=== PATIENT | female | born 1960 | race Two or more races ===

== ENCOUNTER → 2020-09-21 15:21 | Outpatient (BNVA) | payer OTHER, SELFPAY | PROVIDERS: PCP Internal Medicine; Referring Provider Internal Medicine; Visit Provider Obstetrics & Gynecology | DX: N81.10 Cystocele, unspecified (principal); N32.81 Overactive bladder; N39.3 Stress incontinence (female) (male) | CPT/HCPCS: 99212 ==

== ENCOUNTER 2020-12-06 10:18 | Outpatient (REF) | payer OTHER, SELFPAY ==
[2020-12-06 12:14] LABS: Folate 9.7 ng/mL (> or = 4.0); Vitamin B12 254 pg/mL (200-900)
[2020-12-10 13:42] LABS: Vitamin D 25-OH, D2 <4 ng/mL; Vitamin D 25-OH, D3 16 ng/mL; Vitamin D 25-OH, Total 16 ng/mL (30-100)
== END 2020-12-06 10:19 | disposition home or self-care (01) ==
LOC: HO.LAB 10:18
PROVIDERS: PCP Internal Medicine; Visit Provider Internal Medicine
DX: I10 Essential (primary) hypertension (principal)
CPT/HCPCS: 36415; 82306; 82607; 82746

== ENCOUNTER 2021-01-08 10:19 | Outpatient (REF) | payer OTHER, SELFPAY ==
--- NOTE | ~2021-01-08 | MM_ITS ---
EXAMINATION: MM SCREENING DIGITAL BREAST TOMOSYNTHESIS, BILATERAL CLINICAL INFORMATION: Screening. Asymptomatic. The lifetime risk of breast cancer based on the Tyrer-Cuzick Model is 5%. COMPARISON: Mammography: 01/06/2020, 11/02/2018, 10/20/2017 TECHNIQUE: Digital breast tomosynthesis is performed in both the craniocaudal and mediolateral oblique views along with computer-aided detection (CAD). Synthesized 2D images are generated from the tomosynthesis. Additional right CC view is provided. FINDINGS: The breasts are heterogeneously dense, which may obscure small masses (ACR BI-RADS breast composition Category c). Breast tissue composition borders on average fibroglandular. No significant changes from prior exams. There are no significant masses, abnormal calcifications, or other abnormalities. MM/MM tomosynthesis screening BI IMPRESSION: No mammographic evidence of malignancy. ASSESSMENT: BI-RADS 1: Negative RECOMMENDATION: Routine annual mammography screening. This patient's information was entered into a reminder system with a target due date for their next mammogram.
== END 2021-01-08 10:20 | disposition home or self-care (01) ==
LOC: HO.MAMMO 10:19
PROVIDERS: PCP Internal Medicine; Visit Provider Internal Medicine
DX: Z12.31 Encounter for screening mammogram for malignant neoplasm of breast (principal)
CPT/HCPCS: 77063; 77067

== ENCOUNTER 2021-02-21 16:29 | Outpatient (REF) | payer OTHER, SELFPAY ==
--- NOTE | ~2021-02-21 | XR_ITS ---
EXAMINATION: XR HAND, RIGHT CLINICAL INFORMATION: Osteoarthritis COMPARISON: None TECHNIQUE: PA, lateral, and oblique views of the right hand. FINDINGS: Bone alignment is normal. No fracture or dislocation is seen. There is mild arthritis at the first MCP joint with small osteophytes. Joint spaces are otherwise normal. Soft tissues are normal. XR/XR hand RT 2V IMPRESSION: Mild degenerative changes of the first MCP joint otherwise unremarkable exam.
== END 2021-02-21 16:30 | disposition home or self-care (01) ==
LOC: HO.XRAY 16:29
PROVIDERS: PCP Internal Medicine; Visit Provider Internal Medicine
DX: M19.041 Primary osteoarthritis, right hand (principal)
CPT/HCPCS: 73120

== ENCOUNTER 2021-07-13 14:41 | Emergency (ER) | payer OTHER, SELFPAY ==
--- NOTE | ~2021-07-13 | XR_ITS ---
Indication: Injury EXAMINATION: Right shoulder, right ribs. Comparison previous dated 12/24/2018. 3 views of the right shoulder demonstrate some sclerotic change at the insertion of the superior rotator cuff. There is attenuation of the distal clavicle. This may be postsurgical. Ostial lysis cannot be excluded. There is no acute fracture or dislocation. Single view of the chest shows no pneumothorax or effusion. 3 detailed images of the right ribs do not demonstrate evidence for fracture. XR/XR shoulder RT min 2V IMPRESSION: No fracture of the right ribs is seen. No underlying pneumothorax or effusion. Some degeneration of the right shoulder and attenuation of the distal clavicle which may be postsurgical but correlation needs to be made clinically..
--- NOTE | ~2021-07-13 | XR_ITS ---
Indication: Injury EXAMINATION: Right shoulder, right ribs. Comparison previous dated 12/24/2018. 3 views of the right shoulder demonstrate some sclerotic change at the insertion of the superior rotator cuff. There is attenuation of the distal clavicle. This may be postsurgical. Ostial lysis cannot be excluded. There is no acute fracture or dislocation. Single view of the chest shows no pneumothorax or effusion. 3 detailed images of the right ribs do not demonstrate evidence for fracture. XR/XR ribs RT min 3V w CXR1V IMPRESSION: No fracture of the right ribs is seen. No underlying pneumothorax or effusion. Some degeneration of the right shoulder and attenuation of the distal clavicle which may be postsurgical but correlation needs to be made clinically..
[2021-07-13 14:51] VITALS: BP 180/90; PULSE 73; O2SAT 97
[2021-07-13 15:04] VITALS: BP 180/87; PULSE 93; RESP 16; TEMP 36.1; O2SAT 99; BMI 34.4
[2021-07-13] MEDS: Acetaminophen 325 MG TABLET 975 MG PO (15:55)
[2021-07-13 16:02] VITALS: BP 165/74; PULSE 78; RESP 20; TEMP 36.7; O2SAT 98
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
== END 2021-07-13 17:40 | disposition home or self-care (01) ==
PROVIDERS: Emergency Provider Emergency Medicine; PCP Internal Medicine
DX: S46.911A Strain of unspecified muscle, fascia and tendon at shoulder and upper arm level, right arm, initial encounter (principal); V43.52XA Car driver injured in collision with other type car in traffic accident, initial encounter; R07.81 Pleurodynia; Y93.89 Activity, other specified; Y92.414 Local residential or business street as the place of occurrence of the external cause; Y99.9 Unspecified external cause status
CPT/HCPCS: 71101; 73030; 99283

== ENCOUNTER 2021-07-14 14:45 | Outpatient (REF) | payer OTHER, SELFPAY ==
--- NOTE | ~2021-07-14 | XR_ITS ---
EXAMINATION: XR LEFT HAND AND WRIST CLINICAL INFORMATION: Left wrist pain. COMPARISON: None. TECHNIQUE: 3 views of the left hand and wrist and navicular view of the left wrist. FINDINGS: There is no evidence of acute fracture or dislocation of the left hand or wrist. Joint spaces are maintained. There is some spurring about the 1st interphalangeal joint as well as the base of the second distal phalanx, likely related to previous trauma. There is spurring about the 5th distal interphalangeal joint. No significant degenerative change of the wrist is appreciated. XR/XR hand wrist LT IMPRESSION: Mild degenerative changes of the left hand. No evidence of acute fracture or dislocation. No significant abnormality of the wrist identified.
== END 2021-07-14 14:46 | disposition home or self-care (01) ==
LOC: HO.XRAY 14:45
PROVIDERS: PCP Internal Medicine; Visit Provider Physician Assistant
DX: M25.532 Pain in left wrist (principal)
CPT/HCPCS: 73110; 73130

== ENCOUNTER 2021-09-21 08:32 | Outpatient (REF) | payer OTHER, SELFPAY ==
[2021-09-21 09:45] LABS: Hematocrit 37.4 % (37-47); Hemoglobin 11.5 g/dl (12.0-16.0); Mean Corpuscular HGB Conc 30.7 g/dl (31.0-35.0); Mean Corpuscular Hemoglobin 26.5 pg (27.0-33.0); Mean Corpuscular Volume 86.2 fL (80-98); Mean Platelet Volume 10.5 fL (9.4-12.3); Platelet Count 331 X10*3/uL (160-400); Red Blood Count 4.34 X10*6/uL (4.20-5.50); White Blood Count 6.3 X10*3/uL (4.8-10.8)
[2021-09-21 10:15] LABS: Alanine Aminotransferase 16 U/L (0-31); Alkaline Phosphatase 103 U/L (39-117); Anion Gap 13 (12-20); Aspartate Amino Transferase 18 U/L (5-31); Bilirubin Direct 0.2 mg/dL (0.0-0.5); Bilirubin Total 0.4 mg/dL (0.0-1.0); Blood Urea Nitrogen 15 mg/dL (9-16); Calcium 8.9 mg/dL (8.4-10.2); Carbon Dioxide 27 mmol/L (22-29); Chloride 105 mmol/L (96-108); Cholesterol 189 mg/dL; Estimated Glomerular Filt Rate > 60; Glucose Random 90 mg/dL (60-115); HDL Cholesterol 60 mg/dL; LDL Cholesterol Calculated 111 mg/dl; Potassium 4.3 mmol/L (3.3-5.1); Sodium 141 mmol/L (135-145); Total Protein 6.7 g/dL (6.5-8.0); Triglycerides 91 mg/dL
== END 2021-09-21 08:33 | disposition home or self-care (01) ==
LOC: HO.LAB 08:32
PROVIDERS: PCP Internal Medicine; Visit Provider Internal Medicine
DX: I10 Essential (primary) hypertension (principal)
CPT/HCPCS: 36415; 80048; 80061; 80076; 84443; 85027

== ENCOUNTER 2022-01-14 10:40 | Outpatient (REF) | payer OTHER, SELFPAY ==
--- NOTE | ~2022-01-14 | MM_ITS ---
EXAMINATION: MM SCREENING DIGITAL BREAST TOMOSYNTHESIS, BILATERAL CLINICAL INFORMATION: Screening. Asymptomatic. The lifetime risk of breast cancer based on the Tyrer-Cuzick Model is 5%. COMPARISON: Mammography: 01/08/2021, 01/06/2020, 11/02/2018 TECHNIQUE: Digital breast tomosynthesis is performed in both the craniocaudal and mediolateral oblique views along with computer-aided detection (CAD). Synthesized 2D images are generated from the tomosynthesis. FINDINGS: The breasts are heterogeneously dense, which may obscure small masses (ACR BI-RADS breast composition Category c). There are no significant masses, abnormal calcifications, or other abnormalities. Parenchymal pattern is similar to prior studies. Breast tissue composition borders on average fibroglandular. There are no significant changes. MM/MM tomosynthesis screening BI IMPRESSION: No mammographic evidence of malignancy. ASSESSMENT: BI-RADS 1: Negative RECOMMENDATION: Routine annual mammography screening. This patient's information was entered into a reminder system with a target due date for their next mammogram.
== END 2022-01-14 10:41 | disposition home or self-care (01) ==
LOC: HO.MAMMO 10:40
PROVIDERS: PCP Internal Medicine; Visit Provider Internal Medicine
DX: Z12.31 Encounter for screening mammogram for malignant neoplasm of breast (principal)
CPT/HCPCS: 77063; 77067

== ENCOUNTER 2022-02-27 10:37 | Outpatient (REF) | payer OTHER, SELFPAY ==
--- NOTE | ~2022-02-27 | XR_ITS ---
EXAMINATION: XR LUMBOSACRAL SPINE CLINICAL INFORMATION: Low back pain COMPARISON: None TECHNIQUE: Three views of the lumbosacral spine. FINDINGS: There is curvature of the proximal lumbar spine to the right. Bone alignment is otherwise normal. No fracture or dislocation is seen. There is mild disc space narrowing at L5-S1. There is a small 2 mm density projecting over the upper pole of the right kidney questionable for a stone. XR/XR lumbar spine 2-3V IMPRESSION: Curvature of the proximal lumbar spine to the right. Mild disc space narrowing at L5-S1.
== END 2022-02-27 10:38 | disposition home or self-care (01) ==
LOC: HO.XRAY 10:37
PROVIDERS: PCP Nurse Practitioner Acute Care; Visit Provider Nurse Practitioner Acute Care
DX: M54.50 Low back pain, unspecified (principal)
CPT/HCPCS: 72100

== ENCOUNTER 2022-05-20 09:44 | Outpatient (REF) | payer OTHER, SELFPAY ==
[2022-05-20 09:53] LABS: MANUAL DIFF FLAG NO
[2022-05-20 10:24] LABS: Basophils Percent Auto 0.5 % (0-2); Eosinophils Absolute Auto 0.1 X10*3/uL (0.0-0.4); Hematocrit 36.6 % (37.0-47.0); Hemoglobin 11.4 g/dl (12.0-16.0); Imm Gran Abs Auto 0.03 X10*3/uL (0.00-0.03); Imm Gran Pct Auto 0.3 % (0.0-0.4); Lymphocytes Absolute Auto 3.1 X10*3/uL (1.2-4.9); Lymphocytes Percent Auto 35.4 % (20-40); Mean Corpuscular HGB Conc 31.1 g/dl (31.0-35.0); Mean Corpuscular Hemoglobin 26.1 pg (27.0-33.0); Mean Corpuscular Volume 83.9 fL (80.0-98.0); Mean Platelet Volume 9.7 fL (9.4-12.3); Monocytes Absolute Auto 0.6 X10*3/uL (0.1-1.2); Monocytes Percent Auto 6.3 % (2-11); Neutrophils Absolute Auto 4.9 x10*3/uL (2.0-8.3); Neutrophils Percent Auto 56.5 % (45-73); Platelet Count 364 X10*3/uL (160-400); Red Blood Count 4.36 X10*6/uL (4.20-5.50); White Blood Count 8.7 X10*3/uL (4.8-10.8)
[2022-05-20 10:51] LABS: Alanine Aminotransferase 16 U/L (0-31); Albumin Level 4.1 g/dL (3.5-5.0); Alkaline Phosphatase 99 U/L (39-117); Anion Gap 12 (12-20); Aspartate Amino Transferase 16 U/L (5-31); Bilirubin Total 0.4 mg/dL (0.0-1.0); Blood Urea Nitrogen 18 mg/dL (9-16); Calcium 9.1 mg/dL (8.4-10.2); Carbon Dioxide 26 mmol/L (22-29); Chloride 105 mmol/L (96-108); Estimated Glomerular Filt Rate > 60; Glucose Fasting 89 mg/dL (60-99); Potassium 4.4 mmol/L (3.3-5.1); Sodium 139 mmol/L (135-145); Total Protein 6.9 g/dL (6.5-8.0)
[2022-05-20 11:10] LABS: TSH reflex Free T4 0.78 uIU/mL (0.32-4.0)
[2022-05-22 09:11] LABS: Folate 12.6 ng/mL (> or = 4.0); Vitamin B12 329 pg/mL (200-900)
[2022-05-24 15:12] LABS: Vitamin D 25-OH, D2 45 ng/mL; Vitamin D 25-OH, D3 14 ng/mL; Vitamin D 25-OH, Total 59 ng/mL (30-100)
== END 2022-05-20 09:45 | disposition home or self-care (01) ==
LOC: HO.LAB 09:44
PROVIDERS: Visit Provider Nurse Practitioner Acute Care
DX: K21.9 Gastro-esophageal reflux disease without esophagitis (principal); I10 Essential (primary) hypertension
CPT/HCPCS: 36415; 80053; 82306; 82607; 82746; 84443; 85025

== ENCOUNTER 2022-07-28 10:14 | Outpatient (REF) | payer OTHER, SELFPAY ==
[2022-08-02 09:17] LABS: Transglutaminase Ab IgG <1.0 U/mL; Transglutaminase IgA <1.0 U/mL
== END 2022-07-28 10:15 | disposition home or self-care (01) ==
LOC: HO.LAB 10:14
PROVIDERS: PCP Internal Medicine; Visit Provider Nurse Practitioner Family
DX: R10.9 Unspecified abdominal pain (principal); K21.9 Gastro-esophageal reflux disease without esophagitis; K58.9 Irritable bowel syndrome, unspecified; R14.0 Abdominal distension (gaseous)
CPT/HCPCS: 36415; 86364; 99202

== ENCOUNTER 2022-08-10 10:45 | Outpatient (REF) | payer OTHER, SELFPAY ==
[2022-08-19 19:32] LABS: Pancreatic Elastase-1 >500 mcg/g
== END 2022-08-10 10:46 | disposition home or self-care (01) ==
LOC: HO.LNP 10:45
PROVIDERS: Visit Provider Nurse Practitioner Family
DX: R10.9 Unspecified abdominal pain (principal)
CPT/HCPCS: 82656

== ENCOUNTER → 2022-08-11 09:43 | Outpatient (BNVA) | payer OTHER, SELFPAY | PROVIDERS: PCP Internal Medicine; Visit Provider Nurse Practitioner Family | DX: Z11.0 Encounter for screening for intestinal infectious diseases (principal) | CPT/HCPCS: 99211 ==

== ENCOUNTER 2022-08-11 15:41 | Outpatient (REF) | payer OTHER, SELFPAY ==
[2022-08-12 09:06] LABS: H Pylori Breath Test Positive (Negative)
== END 2022-08-11 15:42 | disposition home or self-care (01) ==
LOC: HO.LNP 15:41
PROVIDERS: Visit Provider Nurse Practitioner Family
DX: K21.9 Gastro-esophageal reflux disease without esophagitis (principal)
CPT/HCPCS: 83013

== ENCOUNTER → 2022-09-08 11:48 | Outpatient (BNVA) | payer OTHER, SELFPAY | PROVIDERS: PCP Internal Medicine; Referring Provider Internal Medicine; Visit Provider Nurse Practitioner Family | DX: K21.9 Gastro-esophageal reflux disease without esophagitis (principal); R14.0 Abdominal distension (gaseous); A04.8 Other specified bacterial intestinal infections | CPT/HCPCS: 99212 ==

== ENCOUNTER 2022-10-03 12:06 | Outpatient (REF) | payer OTHER, SELFPAY | END 2022-10-03 12:07 | disposition home or self-care (01) | LOC: HO.LNP 12:06 | PROVIDERS: Visit Provider Nurse Practitioner Family | DX: K21.9 Gastro-esophageal reflux disease without esophagitis (principal) | CPT/HCPCS: 87338 ==

== ENCOUNTER → 2022-11-08 09:11 | Outpatient (BNVA) | payer OTHER, SELFPAY | PROVIDERS: PCP Internal Medicine; Visit Provider Nurse Practitioner Family | DX: K21.9 Gastro-esophageal reflux disease without esophagitis (principal); K59.01 Slow transit constipation; R14.0 Abdominal distension (gaseous); Z79.899 Other long term (current) drug therapy | CPT/HCPCS: 99212 ==

== ENCOUNTER 2023-01-17 09:21 | Outpatient (REF) | payer OTHER, SELFPAY ==
--- NOTE | ~2023-01-17 | MM_ITS ---
EXAMINATION: MM SCREENING DIGITAL BREAST TOMOSYNTHESIS, BILATERAL CLINICAL INFORMATION: Screening. Asymptomatic. The lifetime risk of breast cancer based on the Tyrer-Cuzick Model is 5%. COMPARISON: Mammography: 01/14/2022, 01/08/2021, 01/06/2020 TECHNIQUE: Digital breast tomosynthesis is performed in both the craniocaudal and mediolateral oblique views along with computer-aided detection (CAD). Synthesized 2D images are generated from the tomosynthesis. FINDINGS: The breasts are heterogeneously dense, which may obscure small masses (ACR BI-RADS breast composition Category c). There are no significant masses, abnormal calcifications, or other abnormalities. Breast tissue composition borders on average fibroglandular. There is a small stable smooth nodule posterior lower inner left breast. No developing density. The axilla are unremarkable. Skin contours are smooth. MM/MM tomosynthesis screening BI IMPRESSION: No mammographic evidence of malignancy. ASSESSMENT: BI-RADS 2: Benign RECOMMENDATION: Routine annual mammography screening. This patient's information was entered into a reminder system with a target due date for their next mammogram.
== END 2023-01-17 09:22 | disposition home or self-care (01) ==
LOC: HO.MAMMO 09:21
PROVIDERS: PCP Internal Medicine; Visit Provider Internal Medicine
DX: Z12.31 Encounter for screening mammogram for malignant neoplasm of breast (principal)
CPT/HCPCS: 77063; 77067

== ENCOUNTER → 2023-02-20 10:38 | Outpatient (BNVA) | payer OTHER, SELFPAY | PROVIDERS: PCP Internal Medicine; Visit Provider Nurse Practitioner Family | DX: R68.81 Early satiety (principal); K21.9 Gastro-esophageal reflux disease without esophagitis; K58.9 Irritable bowel syndrome, unspecified; R14.0 Abdominal distension (gaseous) | CPT/HCPCS: 99212 ==

== ENCOUNTER → 2023-03-07 07:46 | Outpatient (REF) | payer OTHER, SELFPAY ==
--- NOTE | ~2023-03-07 | NM_ITS ---
EXAMINATION: RADIONUCLIDE SOLID FOOD GASTRIC EMPTYING 4-HOUR STUDY CLINICAL INFORMATION: Gastroesophageal reflux disease without esophagitis. COMPARISON: No previous study is available for comparison. TECHNIQUE: A standard meal consisting of 4 oz of Egg Beaters brand tagged with 1 mCi Tc-99m Sulfur Colloid, 8 oz water and 2 slices of toast with jelly was administered orally to the patient. Images were obtained using a dual head gamma camera in the anterior and posterior projections over of the stomach immediately post ingestion and at hourly intervals up to 3 hours post ingestion. Images were not obtained at 4 hours due to the minimal retention at 3 hours. The anterior and posterior counts at each time interval were averaged using the geometric mean and expressed as percentage of the immediate post ingestion counts. FINDINGS: There is good visualization of activity in the stomach immediately post ingestion. As the study progresses, there is good clearance of activity from the stomach and visualization of progressively increasing small bowel activity. By the end of the study, there is almost no retention noted in the stomach. Retention in the stomach at each time interval was: 1 hour 69% (normal 37%-90%) 2 hours 3% (normal 30%-60%) 3 hours 3% 4 hours (Not Obtained) (normal 0%-10%) NM/NM gastric emptying study IMPRESSION: Normal solid food gastric emptying study.
== END ==
LOC: HO.NUCMED 07:46
PROVIDERS: PCP Internal Medicine; Visit Provider Nurse Practitioner Family
DX: R68.81 Early satiety (principal); K21.9 Gastro-esophageal reflux disease without esophagitis
CPT/HCPCS: 78264; A9541

== ENCOUNTER → 2023-03-27 09:50 | Outpatient (BNVA) | payer OTHER, SELFPAY | PROVIDERS: PCP Internal Medicine; Referring Provider Internal Medicine; Visit Provider Nurse Practitioner Family | DX: K21.9 Gastro-esophageal reflux disease without esophagitis (principal); K59.01 Slow transit constipation; R14.0 Abdominal distension (gaseous) | CPT/HCPCS: 99212 ==

== ENCOUNTER 2023-05-17 12:58 | Outpatient (REF) | payer OTHER, SELFPAY | END 2023-05-17 12:59 | disposition home or self-care (01) | LOC: HO.LNP 12:58 | PROVIDERS: PCP Internal Medicine; Visit Provider Advanced Practice Midwife | DX: Z13.89 Encounter for screening for other disorder (principal) ==

== ENCOUNTER 2023-07-02 23:38 | Emergency (ER) | payer OTHER, SELFPAY ==
--- NOTE | 2023-07-02 | ECG_ITS ---
Test Reason : CHEST PAIN Blood Pressure : / mmHG Vent. Rate : 113 BPM Atrial Rate : 113 BPM P-R Int : 170 ms QRS Dur : 092 ms QT Int : 338 ms P-R-T Axes : 051 -34 048 degrees QTc Int : 463 ms Sinus tachycardia Left axis deviation Abnormal ECG No previous ECGs available Referred By: Generic ED Physician Electronically Signed By:Richardson Escobar
--- NOTE | ~2023-07-02 | XR_ITS ---
EXAMINATION: XR CHEST CLINICAL INFORMATION: Shortness of breath. COMPARISON: 07/13/2021. TECHNIQUE: Frontal view of the chest was obtained. FINDINGS: The cardiomediastinal silhouette is normal. There is no focal lung consolidation or pleural effusion. The bony structures and soft tissues are unremarkable. XR/XR chest 1V IMPRESSION: No active cardiopulmonary disease.
[2023-07-02 23:51] VITALS: BP 193/90; PULSE 94; RESP 19; TEMP 36.7; O2SAT 97; BMI 33.0
[2023-07-03 00:11] LABS: MANUAL DIFF FLAG NO
[2023-07-03 00:13] LABS: Basophils Percent Auto 0.3 % (0-2); Eosinophils Absolute Auto 0.1 X10*3/uL (0.0-0.4); Eosinophils Percent Auto 1.1 % (0-4); Hematocrit 36.8 % (37.0-47.0); Hemoglobin 11.7 g/dl (12.0-16.0); Imm Gran Abs Auto 0.03 X10*3/uL (0.00-0.03); Imm Gran Pct Auto 0.4 % (0.0-0.4); Lymphocytes Absolute Auto 3.2 X10*3/uL (1.2-4.9); Lymphocytes Percent Auto 39.9 % (20-40); Mean Corpuscular HGB Conc 31.8 g/dl (31.0-35.0); Mean Corpuscular Hemoglobin 26.1 pg (27.0-33.0); Mean Platelet Volume 9.2 fL (9.4-12.3); Monocytes Absolute Auto 0.5 X10*3/uL (0.1-1.2); Monocytes Percent Auto 6.5 % (2-11); Neutrophils Absolute Auto 4.1 x10*3/uL (2.0-8.3); Neutrophils Percent Auto 51.8 % (45-73); Platelet Count 313 X10*3/uL (160-400); Red Blood Count 4.49 X10*6/uL (4.20-5.50); Red Cell Distribution Width 15.7 % (11.0-16.0); White Blood Count 7.9 X10*3/uL (4.8-10.8)
[2023-07-03 00:21] LABS: D Dimer High Sensitivity 211 NG/ML
[2023-07-03] MEDS: Acetaminophen 325 MG TABLET 650 MG PO (00:22)
[2023-07-03] MEDS: Albuterol Sulfate 90 MCG 8 GM INHALER 2 PUFF INHALE (00:22)
[2023-07-03 00:25] LABS: Anion Gap 12 (12-20); Blood Urea Nitrogen 16 mg/dL (9-16); Calcium 9.4 mg/dL (8.4-10.2); Carbon Dioxide 26 mmol/L (22-29); Chloride 106 mmol/L (96-108); Creatinine Clr Calc Pharmacy 70.4; Estimated Glomerular Filt Rate > 60; Glucose Random 111 mg/dL (60-115); Potassium 3.2 mmol/L (3.3-5.1); Sodium 141 mmol/L (135-145)
[2023-07-03 00:33] LABS: Troponin-I High Sensitivity < 2.7 ng/L (<3.5-17.0)
--- NOTE | 2023-07-03 00:45 | ED.CHESTPAIN ---
HPI - Chest Pain General Chief Complaint: Chest Pain Stated Complaint: Chest pain / Covid+ on 06/24 Time Seen by Provider: 07/02/23 23:55 Source: patient Mode of arrival: ambulatory Limitations: no limitations History of Present Illness HPI narrative: 63 yo female with hx of anxiety, GERD, HTN vaccinated x 2 for COVID 10 days of COVID symptoms positive COVID test on 06/24 - runny nose cough, sore throat, chest tightness at this time she came as she felt chest tightness. She took no medications for COVID. She used old INH tonight and felt good. MD complaint: chest pain Onset (ago): day(s) (few) Timing of current episode: episodic Prior episodes: No Onset: during rest and during exertion Pain location: substernal Pain radiation: none Severity: mild Quality: tightness Relieving factors: nothing Exacerbating factors: exertion, inspiration and movement Context: recent illness Associated symptoms: dyspnea and cough Treatment prior to arrival: none Related Data Previous Rx's Medication Instructions Recorded nystatin 100,000 unit/gram topical 1 appl topical BID 30 days #30 10/05/22 cream grams omeprazole 40 mg capsule,delayed 40 mg PO DAILY #90 caps 11/08/22 release gabapentin 300 mg capsule 300 mg PO BID #60 caps 01/18/23 sennosides 8.6 mg tablet (Natural 17.2 mg PO BEDTIME constipation 02/20/23 Senna Laxative) #60 tabs simethicone 80 mg chewable tablet 80 mg PO TID-QID PRN abdominal 02/20/23 (Gas Relief (simethicone)) distention #120 tabs metoprolol tartrate 50 mg tablet 50 mg PO BID #180 tabs 03/21/23 famotidine 20 mg tablet (Pepcid) 20 mg PO BEDTIME PRN acid reflux 03/27/23 #30 tabs polyethylene glycol 3350 17 17 g PO DAILY #510 grams 03/27/23 gram/dose oral powder (Miralax) ergocalciferol (vitamin D2) 1,250 1,250 mcg PO QWEEK #30 caps 03/30/23 mcg (50,000 unit) capsule diclofenac sodium 75 mg 75 mg PO BID #60 tabs 04/17/23 tablet,delayed release escitalopram oxalate 10 mg tablet 10 mg PO DAILY #90 tabs 06/16/23 nirmatrelvir 300 mg (150 mg 3 ea PO PER PKG DIR 5 days #30 ea 06/26/23 x2)-ritonavir 100 mg tablet,dose pack (Paxlovid) Allergies Allergy/AdvReac Type Severity Reaction Status Date / Time No Known Allergies Allergy Verified 05/17/23 13:08 Review of Systems Review of Systems: Constitutional : No Weight loss, No Fever, No Chills ENT/Mouth : No sore throat, No Rhinorrhea Eyes: No Eye Pain, No Swelling Cardiovascular : pos Chest Pain, pos SOB, no Dyspnea on Exertion, No Orthopnea, No Edema, No Palpitations Respiratory : pos Cough, No Sputum Gastrointestinal : no Nausea, No Vomiting, No Diarrhea, No abdominal Pain, No Hematochezia, No Melena Genitourinary : No Dysuria, No Urinary Frequency Musculoskeletal : No joint pain, No Myalgias, No Joint Swelling Skin : No Skin Lesions, No rash Neuro : No Weakness, No Numbness, No Dizziness, No Headache Psych : No Anxiety/Panic, No Depression Heme/Lymph: No Bruising, No Lymphadenopathy Endocrine : No Polyuria, No Polydipsia All other systems reviewed and are negative [facility] Past Medical History Attestation statement: The following information was validated with the patient. Medical History BPPV (benign paroxysmal positional vertigo) Essential (primary) hypertension Helicobacter pylori (H. pylori) Osteoarthritis Surgical History Hx of colonoscopy Injury of right rotator cuff Family History Family History Father Alcoholism Substance use disorder Mother Arthritis Brother Colon cancer Social History Social History Housing: Apartment Alcohol intake: never Patient Tobacco Use Status: Never used Tobacco e-Cigarette/Vaping Use: Never Used Second Hand Smoke Exposure: No Advance Directives: No Advance Directives Information Provided: Yes service: No Current occupational status: disabled Sexual orientation: Straight/Heterosexual Gender identity: Female Cognitive needs: No Hearing needs: No Vision needs: Yes (glasses) Physical Exam Vital Signs: Vital Signs: Last Vital Signs Temp 98.2 F 07/03/23 01:05 Pulse 89 07/03/23 01:05 Resp 17 07/03/23 01:05 BP 160/85 H 07/03/23 01:05 Pulse Ox 97 07/03/23 01:05 O2 Del Method Room Air 07/03/23 01:05 BMI result Body Mass Index 33.0 Appearance: Alert. Oriented X3. No acute distress. Eyes: Pupils equal, round and reactive to light. ENT: Pharynx normal. Neck: Normal inspection. Neck supple. CVS: Normal heart rate and rhythm. Pulses normal. Respiratory: No respiratory distress. Breath sounds minimally diminished. Abdomen: Soft and non-tender. Skin: Skin warm and dry. Normal skin color. Normal skin turgor. Extremities: No lower extremity edema. No calf ttp Neuro: Oriented X 3. No motor deficit. No sensory deficit. Medications Administered Discontinued Medications Generic Name Dose Route Start Last Admin Trade Name Freq PRN Reason Stop Dose Admin Acetaminophen 650 mg 07/03/23 00:02 07/03/23 00:22 Acetaminophen 325 Mg Tablet PO 07/03/23 00:03 650 mg ONCE ONE Administration Albuterol Sulfate 2 puff 07/03/23 00:02 07/03/23 00:22 Albuterol Sulfate 90 Mcg 8 Gm Inhaler INHALE 07/03/23 00:03 2 puff ONCE ONE Administration Potassium Chloride 40 meq 07/03/23 00:45 07/03/23 01:04 Potassium Chloride Er 20 Meq Tab.Er.Prt PO 07/03/23 00:46 40 meq ONCE ONE Administration Medical Decision Making Medical Decision Making MDM Narrative: 63 yo female with hx of anxiety, GERD, HTN vaccinated x 2 for COVID this is her first bout symptoms started 10+ days ago - runny nose and sore throat feels a tight chest still but looks not toxic at this time will obtain EKG, CXR, troponin and ddimer - at this time she looks well will give INH and reassess. No hypoxia. Dispo per results and labs but she clinically looks well. out of window for paxlovid given 10+ days. Differential Diagnosis Differential Diagnoses: The differential diagnosis associated with the presentation includes COVID pneumonia, atypical ACS, bronchospasm, VTE less likely has stable VS Admission/Observation Consideration of admission/observation: Escalation of care including admission/observation considered no hypoxia, no pneumonia, labs stable workup negative day 6 of symptoms can be DC home not in window for treatments Lab Data MDM Lab Attestation statement: I reviewed the patient's lab results. 07/03/23 00:05 07/03/23 00:05 Labs: Lab Results 07/03/23 07/03/23 07/03/23 Range/Units 00:05 00:05 00:05 WBC 7.9 (4.8-10.8) X10*3/uL RBC 4.49 (4.20-5.50) X10*6/uL Hgb 11.7 L (12.0-16.0) g/dl Hct 36.8 L (37.0-47.0) % MCV 82.0 (80.0-98.0) fL MCH 26.1 L (27.0-33.0) pg MCHC 31.8 (31.0-35.0) g/dl RDW 15.7 (11.0-16.0) % Plt Count 313 (160-400) X10*3/uL MPV 9.2 L (9.4-12.3) fL Immature Gran % (Auto) 0.4 (0.0-0.4) % Neut % (Auto) 51.8 (45-73) % Lymph % (Auto) 39.9 (20-40) % [place] % (Auto) 6.5 (2-11) % Eos % (Auto) 1.1 (0-4) % Baso % (Auto) 0.3 (0-2) % Lymph # (Auto) 3.2 (1.2-4.9) X10*3/uL [place] # (Auto) 0.5 (0.1-1.2) X10*3/uL Eos # (Auto) 0.1 (0.0-0.4) X10*3/uL Baso # (Auto) 0.0 (0.0-0.2) X10*3/uL Abs Immat Gran (auto) 0.03 (0.00-0.03) X10*3/uL Absolute Neuts (auto) 4.1 (2.0-8.3) x10*3/uL Absolute Nucleated RBC 0.000 (0.0-0.012) X10*3/uL Nucleated RBC % (auto) 0.0 (0.0-0.2) /100WBC D-Dimer High Sensitivty NG/ML Sodium 141 (135-145) mmol/L Potassium 3.2 L D (3.3-5.1) mmol/L Chloride 106 (96-108) mmol/L Carbon Dioxide 26 (22-29) mmol/L Anion Gap 12 (12-20) BUN 16 (9-16) mg/dL Creatinine 0.81 (0.5-1.4) mg/dL Estim Creat Clear Calc 70.4 Estimated GFR > 60 Random Glucose 111 (60-115) mg/dL Calcium 9.4 (8.4-10.2) mg/dL Troponin I High Sens < 2.7 (<3.5-17.0) ng/L 07/03/23 Range/Units 00:05 WBC (4.8-10.8) X10*3/uL RBC (4.20-5.50) X10*6/uL Hgb (12.0-16.0) g/dl Hct (37.0-47.0) % MCV (80.0-98.0) fL MCH (27.0-33.0) pg MCHC (31.0-35.0) g/dl RDW (11.0-16.0) % Plt Count (160-400) X10*3/uL MPV (9.4-12.3) fL Immature Gran % (Auto) (0.0-0.4) % Neut % (Auto) (45-73) % Lymph % (Auto) (20-40) % [place] % (Auto) (2-11) % Eos % (Auto) (0-4) % Baso % (Auto) (0-2) % Lymph # (Auto) (1.2-4.9) X10*3/uL [place] # (Auto) (0.1-1.2) X10*3/uL Eos # (Auto) (0.0-0.4) X10*3/uL Baso # (Auto) (0.0-0.2) X10*3/uL Abs Immat Gran (auto) (0.00-0.03) X10*3/uL Absolute Neuts (auto) (2.0-8.3) x10*3/uL Absolute Nucleated RBC (0.0-0.012) X10*3/uL Nucleated RBC % (auto) (0.0-0.2) /100WBC D-Dimer High Sensitivty 211 NG/ML Sodium (135-145) mmol/L Potassium (3.3-5.1) mmol/L Chloride (96-108) mmol/L Carbon Dioxide (22-29) mmol/L Anion Gap (12-20) BUN (9-16) mg/dL Creatinine (0.5-1.4) mg/dL Estim Creat Clear Calc Estimated GFR Random Glucose (60-115) mg/dL Calcium (8.4-10.2) mg/dL Troponin I High Sens (<3.5-17.0) ng/L Independent Interpretation I performed an independent interpretation of an: EKG and Plain X-Ray (no pneumonia) Interpretation: Rate: 113 Rhythm: sinus tachycardia [place]: ;eft Normal P waves. Normal GAVI. Normal QRS complex. ST T wave : nonspecific no CALLY qTC: normal prior studies: no acute ischemia The study has been interpreted contemporaneously by me. . Radiology Impression Discussion of test interpretation with radiology: I have reviewed the radiologist's reading. External Record Review External record reviewed: Office record and Prior outpatient labs H/H at baseline Prescription Management I considered prescription management with: Other Discharge Plan Discharge Clinical Impression: Atypical chest pain, COVID-19, Acute hypokalemia Patient Disposition: Home, Self-Care Instructions: Chest Pain (ED), Hypokalemia (ED), COVID-19 (Coronavirus Disease 2019) (ED) Additional Instructions: your heart tests were normal and chest xray did not show pneumonia, your blood clot test was negative too. at this time your oxygen levels are normal. stay hydrated, take care of yourself you can take tylenol or motrin for pain. you can take the inhaler 2 puffs every 4 hours as needed for shortness of breath. we repleted your potassium while you were here. you should still wear a mask around others for the next 3 days. at this time all of your workup is reassuring, return for worsening symptoms, difficulty breathing while walking to your own bathroom or worsening chest pain. Prescriptions: No Action gabapentin 300 mg capsule 300 mg PO BID Qty: 60 2RF metoprolol tartrate 50 mg tablet 50 mg PO BID Qty: 180 1RF ergocalciferol (vitamin D2) 1,250 mcg (50,000 unit) capsule 1,250 mcg PO QWEEK Qty: 30 2RF diclofenac sodium 75 mg tablet,delayed release (DR/EC) 75 mg PO BID Qty: 60 2RF escitalopram oxalate 10 mg tablet 10 mg PO DAILY Qty: 90 0RF Paxlovid 300 mg (150 mg x 2)-100 mg tablets,dose pack 3 ea PO PER PKG DIR 5 Days Qty: 30 0RF nystatin 100,000 unit/gram cream 1 appl topical BID 30 Days Qty: 30 1RF omeprazole 40 mg capsule,delayed release(DR/EC) 40 mg PO DAILY Qty: 90 3RF sennosides [Natural Senna Laxative] 8.6 mg tablet 17.2 mg PO BEDTIME Qty: 60 1RF simethicone [Gas Relief (simethicone)] 80 mg tablet,chewable 80 mg PO TID-QID PRN (Reason: abdominal distention) Qty: 120 4RF polyethylene glycol 3350 [Miralax] 17 gram/dose powder 17 g PO DAILY Qty: 510 2RF famotidine [Pepcid] 20 mg tablet 20 mg PO BEDTIME PRN (Reason: acid reflux) Qty: 30 3RF Interventions: ED Discharge Assessment Last Done: 07/03/23 01:08 Discharge Date/Time: 07/03/23 01:09
[2023-07-03] MEDS: Potassium Chloride ER 20 MEQ TAB.ER.PRT 40 MEQ PO (01:04)
[2023-07-03 01:05] VITALS: BP 160/85; PULSE 89; RESP 17; TEMP 36.8; O2SAT 97
== END 2023-07-03 01:09 | disposition home or self-care (01) ==
PROVIDERS: Emergency Provider Emergency Medicine; PCP Internal Medicine
DX: U07.1 COVID-19 (principal); R05.9 Cough, unspecified; E87.6 Hypokalemia; R00.0 Tachycardia, unspecified; Z79.899 Other long term (current) drug therapy
CPT/HCPCS: 36415; 71045; 80048; 84484; 85025; 85379; 93005; 99284

== ENCOUNTER → 2023-07-02 23:46 | Outpatient (BNV) | payer OTHER, SELFPAY | PROVIDERS: Emergency Provider Emergency Medicine; PCP Internal Medicine; Visit Provider Internal Medicine Cardiovascular Disease | DX: R00.0 Tachycardia, unspecified (principal) | CPT/HCPCS: 93010 ==

== ENCOUNTER 2023-07-04 08:26 | Outpatient (REF) | payer OTHER, SELFPAY ==
[2023-07-04 08:44] LABS: MANUAL DIFF FLAG NO
[2023-07-04 09:40] LABS: Basophils Percent Auto 0.3 % (0-2); Eosinophils Absolute Auto 0.1 X10*3/uL (0.0-0.4); Eosinophils Percent Auto 1.5 % (0-4); Hematocrit 38.1 % (37.0-47.0); Hemoglobin 11.9 g/dl (12.0-16.0); Imm Gran Abs Auto 0.02 X10*3/uL (0.00-0.03); Imm Gran Pct Auto 0.3 % (0.0-0.4); Lymphocytes Absolute Auto 2.7 X10*3/uL (1.2-4.9); Lymphocytes Percent Auto 41.4 % (20-40); Mean Corpuscular HGB Conc 31.2 g/dl (31.0-35.0); Mean Corpuscular Hemoglobin 26.1 pg (27.0-33.0); Mean Corpuscular Volume 83.6 fL (80.0-98.0); Monocytes Absolute Auto 0.4 X10*3/uL (0.1-1.2); Monocytes Percent Auto 6.8 % (2-11); Neutrophils Absolute Auto 3.2 x10*3/uL (2.0-8.3); Neutrophils Percent Auto 49.7 % (45-73); Platelet Count 334 X10*3/uL (160-400); Red Blood Count 4.56 X10*6/uL (4.20-5.50); Red Cell Distribution Width 16.1 % (11.0-16.0); White Blood Count 6.5 X10*3/uL (4.8-10.8)
[2023-07-04 10:57] LABS: Alanine Aminotransferase 17 U/L (0-31); Albumin Level 4.1 g/dL (3.5-5.0); Alkaline Phosphatase 71 U/L (39-117); Anion Gap 12 (12-20); Aspartate Amino Transferase 17 U/L (5-31); Bilirubin Total 0.5 mg/dL (0.0-1.0); Blood Urea Nitrogen 14 mg/dL (9-16); Calcium 9.6 mg/dL (8.4-10.2); Carbon Dioxide 26 mmol/L (22-29); Chloride 108 mmol/L (96-108); Cholesterol 191 mg/dL; Estimated Glomerular Filt Rate > 60; Glucose Fasting 95 mg/dL (60-99); HDL Cholesterol 58 mg/dL; Iron 55 mcg/dL (30-160); LDL Cholesterol Calculated 109 mg/dl; Percent Iron Saturation 16 % (15-50); Potassium 4.2 mmol/L (3.3-5.1); Sodium 142 mmol/L (135-145); Total Iron Binding Capacity 345 mcg/dL (228-428); Total Protein 7.2 g/dL (6.5-8.0); Triglycerides 122 mg/dL; Unsaturated Iron Binding 290 ug/dL
[2023-07-04 11:14] LABS: Vitamin D 25-OH Total 42.6 ng/mL (>30)
== END 2023-07-04 08:27 | disposition home or self-care (01) ==
LOC: HO.LAB 08:26
PROVIDERS: PCP Internal Medicine; Visit Provider Internal Medicine
DX: Z00.00 Encounter for general adult medical examination without abnormal findings (principal); E78.5 Hyperlipidemia, unspecified; D64.9 Anemia, unspecified; K21.9 Gastro-esophageal reflux disease without esophagitis; E55.9 Vitamin D deficiency, unspecified
CPT/HCPCS: 36415; 80053; 80061; 82306; 83540; 85025

== ENCOUNTER 2023-07-05 10:28 | Outpatient (AMB) | payer OTHER, SELFPAY ==
--- NOTE | 2023-07-05 10:31 | A.OFFPC_ITS ---
Vital Signs 07/05/23 10:35 07/05/23 12:14 Height 5 ft Weight 179 lb 4 oz BMI 35.0 BP 140/90 H 138/88 Blood Pressure Location Lt brachial Lt brachial Position Sitting Sitting Pulse 62 Pulse Source Pulse Oximeter Pulse Oximetry (%) 97 Oxygen Delivery Method Room Air Intake Visit Reasons: 4mth f/u Dairy Products Maker Required: No Accompanied by: Self / Same As Patient Allergies No Known Allergies Allergy (Verified 07/05/23 10:49) Medication List - Last Reconciled 07/05/23 by Jeni Rajan MD diclofenac sodium 75 mg PO BID ergocalciferol (vitamin D2) 1,250 mcg PO QWEEK escitalopram oxalate 10 mg PO DAILY famotidine (Pepcid) 20 mg PO BEDTIME PRN gabapentin 300 mg PO BID metoprolol tartrate 50 mg PO BID omeprazole 40 mg PO DAILY polyethylene glycol 3350 (Miralax) 17 grams PO DAILY sennosides (Natural Senna Laxative) 17.2 mg (2 x 8.6 mg) PO BEDTIME simethicone (Gas Relief (simethicone)) 80 mg PO TID-QID PRN Tobacco use date assessed: 02/27/23 Dental Screening Dental Screen Date: 07/05/23 Did you have a dental visit in the last 12 months?: Yes Did you have a dental problem in the last 6 months where you did not have access to dental care?: No Was dental information given to patient?: Patient has dentist HPI HPI Comments History of Present Illness Details This is a 63-year-old female that comes for her physical exam. Pap smear was less than 5 years ago. Mammogram done this year was normal. Had colonoscopy a while ago and he has been follow by Gastroenterology which she said she has mention colonoscopy in the near future for her. No chest pain or shortness of breath. Labs were discussed and were within normal limits except low hemoglobin which will be monitor. Has mild major depression stable on escitalopram. PFSH Medical History BPPV (benign paroxysmal positional vertigo) Essential (primary) hypertension Helicobacter pylori (H. pylori) Osteoarthritis Surgical History Hx of colonoscopy Injury of right rotator cuff Family History (Updated 07/05/23 @ 10:53 by Jeni Rajan MD) Father Alcoholism Substance use disorder Mother Arthritis Brother Colon cancer, Onset Age: 55 Social History Housing: Apartment Alcohol intake: never Patient Tobacco Use Status: Never used Tobacco e-Cigarette/Vaping Use: Never Used Second Hand Smoke Exposure: No service: No Current occupational status: disabled Sexual orientation: Straight/Heterosexual Gender identity: Female Cognitive needs: No Hearing needs: No Vision needs: Yes (glasses) Questionnaire Thrive Questionnaire Date Thrive assessed: 02/27/23 PARIS-7 AMB Questionnaire PARIS-7 Date PARIS - 7 assessed: 02/27/23 Source: Developed by Drs. Jun Vasques, Rima Vázquez, Christiano Olivier and colleagues, with an educational tawanna from [employer]. Review of Systems Const All systems reviewed & are unremarkable except as noted in HPI and below Eyes Reports no additional complaints, Denies change in vision and Denies other visual disturbances Card Denies chest pain at rest, Denies chest pain with activity, Denies edema, Denies irregular heart rhythm, Denies claudication, Denies dyspnea, Denies dyspnea on exertion, Denies orthopnea, Denies paroxysmal nocturnal dyspnea and Denies slow heart rate Resp Denies cough, Denies dyspnea and Denies dyspnea on exertion GI Denies abdominal pain, Denies change in bowel habits, Denies excessive flatus, Denies nausea and Denies vomiting Denies urinary incontinence, Denies urinary hesitancy and Denies urinary urgency Musc Denies abnormal gait, Denies atrophy, Denies deformity and Denies limited range of motion Skin/Breast Denies bleeding lesions, Denies changing lesions and Denies rash Neuro Denies abnormal gait and Denies lack of coordination Physical exam (Primary Care) Vital Signs: Last Vital Signs Pulse 62 07/05/23 10:35 BP 140/90 H 07/05/23 10:35 Pulse Ox 97 07/05/23 10:35 Oxygen Delivery Method Room Air 07/05/23 10:35 BMI result Body Mass Index 35.0 Tobacco/Smoking Status: Tobacco use Status Tobacco use date assessed 02/27/23 07/05/23 10:32 Patient Tobacco Use Status Never used Tobacco 07/05/23 10:32 e-Cigarette/Vaping Use Never Used 07/05/23 10:32 Thrive Assessment: Date of Thrive Assessment Date Thrive assessed 02/27/23 07/05/23 10:32 Const Orientation/consciousness: patient oriented x3 HENMT Head: Yes normal to inspection, Yes normocephalic and Yes atraumatic Ears: external ears normal Eyes General: appearance normal, both eyes and all related structures Eyelids: Yes eyelids normal Conjunctivae: conjunctivae normal Neck Neck: Yes normal visual inspection and Yes supple Resp Effort & Inspection: normal respiratory effort Auscultation: clear to auscultation bilaterally Cardio Jugular venous distension: no JVD Rate: regular rate Rhythm: regular rhythm Heart sounds: S1 normal heart sound present and S2 normal heart sound present GI Inspection: Yes normal to inspection Palpation (GI): Soft to palpation and nontender Auscultation: normal bowel sounds Skin General skin exam: no rashes or lesions noted Neuro General: patient oriented x3 and no focal motor deficits Extrem General: Yes full ROM Psych Appearance: grossly normal Assessment and Plan Assessment & Plan (1) Physical exam: Code(s): Z00.00 - Encounter for general adult medical examination without abnormal findings Plan: Repeat in a year (2) Mild recurrent major depression: Code(s): F33.0 - Major depressive disorder, recurrent, mild Plan: Continue escitalopram Orders: Orders XR DEXA axial skeleton Today N95.9 - Unspecified menopausal and perimenopausal disorder Coding Level of Care Code Est Pt Prev Care 40-64y(41198) Diagnoses Physical exam Z00.00 Mild recurrent major depression F33.0 Time Spent (min) 33
[2023-07-05 10:35] VITALS: BP 140/90; PULSE 62; O2SAT 97; BMI 35.0
[2023-07-05 12:14] VITALS: BP 138/88
== END 2023-07-05 11:02 | disposition home or self-care (01) ==
PROVIDERS: PCP Internal Medicine; Visit Provider Internal Medicine
DX: Z00.00 Encounter for general adult medical examination without abnormal findings (principal); F33.0 Major depressive disorder, recurrent, mild
CPT/HCPCS: 99396

== ENCOUNTER 2023-07-10 10:41 | Outpatient (AMB) | payer OTHER, SELFPAY ==
--- NOTE | 2023-07-10 10:45 | A.OFFVIS_ITS ---
Intake Vital Signs 07/10/23 10:47 Height 5 ft Weight 178 lb BMI 34.8 BP 126/74 Blood Pressure Location Lt brachial Position Sitting Pulse 76 Intake Visit Reasons: 3 month follow up Intake Note: Patient follow up for chronic GERD. Patient denies any GI issues. 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 I will add famotidine at bedtime on as needed basis. Patient will continue avoiding late night snacking. Continue avoiding dietary triggers. Staying upright for minimal 3 hours after meals discussed with patient. Constipation Continue with current regimen MiraLax and Senokot. Patient was also encouraged to increase fluid intake and activity to promote better bowel motility. Postprandial abdominal bloating Continue following low FODMAP diet. Patient can also a to elimination diet which can help her with bloating. Patient had negative gastric emptying study. I will see patient in 3 months, sooner on as needed basis. Patient is agreeable to this plan and verbalizes understanding of instructions. She was given the opportunity to ask questions and all questions answered ? Thank you for allowing me to participate in her care Plan Medications New famotidine (Pepcid) 20 mg PO BEDTIME PRN 30 tabs 3RF acid reflux K21.9 Refilled polyethylene glycol 3350 (Miralax) 17 grams PO DAILY 510 grams 2RF TODAY'S VISIT: Patient is here today for follow-up. Patient reports that she is taking her omeprazole every morning half an hour before breakfast. Patient states that she uses famotidine on as needed basis. Patient reports no more than couple times a week. Patient is trying to avoid dietary triggers. Patient is not eating late at night. Patient denies dyspepsia, dysphagia or odynophagia. Patient reports that she is moving her bowels better now that she is taking MiraLax every day. Occasionally she will use Senokot if she is not moving her bowels or feels like she does not empty completely. Patient does not remember exactly when she had colonoscopy but it has been more than a decade ago. Patient does not want to have colonoscopy but agrees to do Cologuard. Patient is aware that if Cologuard comes back positive she will be recommended to have colonoscopy then [facility] Medical History BPPV (benign paroxysmal positional vertigo) Essential (primary) hypertension Helicobacter pylori (H. pylori) Osteoarthritis Surgical History Hx of colonoscopy Injury of right rotator cuff Family History Father Alcoholism Substance use disorder Mother Arthritis Brother Colon cancer, Onset Age: 55 Social History Housing: Apartment Alcohol intake: never Patient Tobacco Use Status: Never used Tobacco e-Cigarette/Vaping Use: Never Used Second Hand Smoke Exposure: No service: No Current occupational status: disabled Sexual orientation: Straight/Heterosexual Gender identity: Female Cognitive needs: No Hearing needs: No Vision needs: Yes (glasses) Review of Systems Const Denies weight gain and Denies weight loss ENT Reports no additional complaints, Denies dysphagia and Denies odynophagia Card Reports no additional complaints Resp Reports no additional complaints GI Denies abdominal pain, Denies belching, Denies melena, Denies bloating, Denies change in bowel habits, Denies dysphagia, Denies excessive flatus, Denies dyspepsia, Denies heartburn, Denies diarrhea, Denies loose stools, Denies nausea, Denies odynophagia and Denies vomiting Musc Reports no additional complaints Neuro Reports no additional complaints Psych Reports no additional complaints Endo Reports no additional complaints Physical Exam Vital Signs: Last Vital Signs Pulse 76 07/10/23 10:47 BP 126/74 07/10/23 10:47 BMI result Body Mass Index 34.8 Const General: healthy appearing, no acute distress and well developed Nutritional Appearance: obese Orientation/consciousness: patient oriented x3 HEENT Head: Yes normal to inspection, Yes normocephalic and Yes atraumatic Face and sinus: Yes normal facial exam Mouth: Normal oral and palatal mucosa present Throat: Yes posterior oropharynx normal, Yes tonsils normal and Yes uvula midline Eyes General: appearance normal, both eyes and all related structures Neck Neck: Yes normal visual inspection, Yes full ROM and Yes trachea midline Thyroid: Thyroid normal Resp Effort & Inspection: normal respiratory effort, able to speak in complete sentences, no tracheal deviation and symmetric chest movement Auscultation: clear to auscultation bilaterally Cardio Rate: regular rate Heart sounds: S1 normal heart sound present and S2 normal heart sound present GI Inspection: Yes normal to inspection, No distended and Yes obesity Palpation (GI): Soft to palpation, not firm, nontender and No hepatosplenomegaly present Auscultation: normal bowel sounds General: Yes no CVA tenderness Back/Spine/Pelvis Back: no CVA tenderness Skin General skin exam: elasticity normal, turgor normal and dry skin Neuro General: patient oriented x3 Psych Appearance: grossly normal Mental Status: mental status grossly normal Speech and movement: Normal speech and movement present Assessment & Plan Assessment & Plan (1) Chronic GERD: Code(s): K21.9 - Gastro-esophageal reflux disease without esophagitis Plan: Continue omeprazole every morning. May use famotidine on as needed basis. Continue avoiding dietary triggers and late night snacking. Staying upright for minimum 3 hours after meals discussed with patient. (2) Constipation: Code(s): K59.00 - Constipation, unspecified Qualifiers: Constipation type: slow transit constipation Qualified Code(s): K59.01 - Slow transit constipation Plan: Continue current management with MiraLax. May use Senokot on as needed basis. Patient was encouraged to increase fluid intake and activity to promote better bowel motility. (3) Postprandial abdominal bloating: Code(s): R14.0 - Abdominal distension (gaseous) Plan: Patient reports improvement in postprandial abdominal bloating now that she is moving her bowels better. Patient is also watching her diet (4) Screen for colon cancer: Code(s): Z12.11 - Encounter for screening for malignant neoplasm of colon Plan: Patient does not want to have a colonoscopy at this time. History of colonoscopy in the past, over a decade ago though. Patient agreed to have Cologuard. Please send Cologuard to patient. Patient is aware that if Cologuard comes back positive recommendation will be to go for colonoscopy. I will see patient in 6 months, sooner on as needed basis. Patient is agreeable to this plan and verbalizes understanding of instructions. She was given the opportunity to ask questions and all questions answered for the Thank you for allowing me to participate in her care Medications: Refilled omeprazole 40 mg PO DAILY 90 caps 3RF K21.9 - Gastro-esophageal reflux disease without esophagitis simethicone (Gas Relief (simethicone)) 80 mg PO TID-QID PRN 120 tabs 4RF abdominal distention Coding Level of Care Code Est Pt Level 3 (22897) Diagnoses Chronic GERD K21.9 Constipation K59.01 Constipation type: slow transit constipation Postprandial abdominal bloating R14.0 Screen for colon cancer Z12.11 Time Spent (min) 30 Comment 20 minutes spent with patient and additional 10 minutes spent reviewing her records
[2023-07-10 10:47] VITALS: BP 126/74; PULSE 76; BMI 34.8
== END 2023-07-10 11:12 | disposition home or self-care (01) ==
PROVIDERS: PCP Internal Medicine; Visit Provider Nurse Practitioner Family
DX: K21.9 Gastro-esophageal reflux disease without esophagitis (principal); K59.01 Slow transit constipation; R14.0 Abdominal distension (gaseous); Z12.11 Encounter for screening for malignant neoplasm of colon
CPT/HCPCS: 99213

== ENCOUNTER → 2023-07-10 10:41 | Outpatient (BNVA) | payer OTHER, SELFPAY | PROVIDERS: PCP Internal Medicine; Visit Provider Nurse Practitioner Family | DX: K21.9 Gastro-esophageal reflux disease without esophagitis (principal); K59.01 Slow transit constipation; R14.0 Abdominal distension (gaseous) | CPT/HCPCS: 99212 ==

== ENCOUNTER 2023-07-20 09:20 | Outpatient (REF) | payer OTHER, SELFPAY ==
--- NOTE | ~2023-07-20 | MM_ITS ---
EXAMINATION: BONE DENSITOMETRY CLINICAL INDICATION: Menopause. COMPARISON: This is the patient's baseline examination. TECHNIQUE: Using a [employer] DXA System (software version: 13.1) manufactured by [employer], dual-energy x-ray absorptiometry was performed of the lumbar spine and left hip. The images are of good technical quality. Summary results are attached. FINDINGS: LEFT FEMUR, NECK: BMD 0.864 g/cm2, Z-score -0.2, T-score -1.3, osteopenia. LEFT FEMUR, TOTAL: BMD 0.908 g/cm2, Z-score -0.1, T-score -0.8, normal. AP SPINE L1-L4: BMD 0.908 g/cm2, Z-score -1.4, T-score -2.3, osteopenia. IDENTIFIED RISK FACTORS: Height loss, left oophorectomy, menopause. HISTORY OF FRACTURE: None listed. MEDICATIONS: Vitamin D, bisphosphonates. MM/XR DEXA axial skeleton IMPRESSION: 1. DIAGNOSIS: Osteopenia based on the lowest T-score value of -2.3 in the lumbar spine applying World Health Organization criteria. 2. 10-YEAR FRACTURE RISK PREDICTION, FRAX: Not performed in this patient on estrogen or bone building treatments. 3. Treatment Recommendations: NOF guidelines recommend consideration for treatment in postmenopausal women and men age 50 and older presenting with the following: -A hip or vertebral (clinical or morphometric) fracture. -T-score less than or equal to -2.5 at the femoral neck or spine after appropriate evaluation to exclude secondary causes. -Low bone mass at the hip or spine and a 10-year fracture probability by FRAX of greater than or equal to 3% for hip fracture or greater than or equal to 20% for major osteoporotic fracture based on the [place] adapted WHO algorithm. 4. Other Recommendations: All treatment decisions require clinical judgment and consideration of individual patient factors, including patient preferences, comorbidities, previous drug use, risk factors not captured in the FRAX model (e.g. frailty, falls, vitamin D deficiency, increased bone turnover, interval significant decline in bone density) and possible under or overestimation of fracture risk by FRAX. Additional medical evaluation for secondary cause of low bone mineral density may be appropriate. FUTURE SCAN RECOMMENDATION: People with diagnosed cases of osteoporosis or at high risk for fracture should have regular bone mineral density tests. For patients eligible for Medicare, routine testing is allowed once every 2 years. The testing frequency can be increased to one year for patients who have rapidly progressing disease, those who are receiving or discontinuing medical therapy to restore bone mass, or have additional risk factors.
== END 2023-07-20 09:21 | disposition home or self-care (01) ==
LOC: HO.MAMMO 09:20
PROVIDERS: Visit Provider Internal Medicine
DX: Z13.820 Encounter for screening for osteoporosis (principal); N95.9 Unspecified menopausal and perimenopausal disorder
CPT/HCPCS: 77080

== ENCOUNTER → 2023-07-20 09:45 | Outpatient (BNV) | payer OTHER, SELFPAY | PROVIDERS: Visit Provider Radiology Diagnostic Radiology | DX: M85.89 Other specified disorders of bone density and structure, multiple sites (principal) | CPT/HCPCS: 77080 ==

== ENCOUNTER 2023-09-11 09:14 | Outpatient (AMB) | payer OTHER, SELFPAY ==
[2023-09-11 10:00] VITALS: BP 140/80; PULSE 78; TEMP 36.6; O2SAT 98; BMI 34.8
--- NOTE | 2023-09-11 10:00 | AM.OFFWIN_ITS ---
Intake Vital Signs 09/11/23 10:00 Height 5 ft Weight 178 lb BMI 34.8 BP 140/80 H Blood Pressure Location Lt brachial Position Sitting Pulse 78 Pulse Source Pulse Oximeter Temp 97.9 F Temp Source Temporal Artery Scan Pulse Oximetry (%) 98 Intake Visit Reasons: EP, Left shoulder pain due to fall Intake Note: pt is here for c/o shoulder pain due to fall in home 2 weeks ago Patient Tobacco Use Status: Never used Tobacco Allergies No Known Allergies Allergy (Verified 09/11/23 10:01) Do you need a note to return to daycare/school/sports/work: No HPI HPI Comments History of Present Illness Details 63-year-old female that presents for bridgette ulder pain after fall. Patient fell approximately 2 weeks ago and has been trying to manage at home symptomatically with rest Tylenol Motrin she is complaining of left shoulder pain particularly with movement. [facility] Medical History BPPV (benign paroxysmal positional vertigo) Essential (primary) hypertension Helicobacter pylori (H. pylori) Osteoarthritis Surgical History Hx of colonoscopy Injury of right rotator cuff Family History Father Alcoholism Substance use disorder Mother Arthritis Brother Colon cancer, Onset Age: 55 Social History Housing: Apartment Alcohol intake: never Patient Tobacco Use Status: Never used Tobacco e-Cigarette/Vaping Use: Never Used Second Hand Smoke Exposure: No service: No Current occupational status: disabled Sexual orientation: Straight/Heterosexual Gender identity: Female Cognitive needs: No Hearing needs: No Vision needs: Yes (glasses) Review of Systems [facility] [place]ralgias Physical Exam Vital Signs: Last Vital Signs Temp 97.9 F 09/11/23 10:00 Pulse 78 09/11/23 10:00 BP 140/80 H 09/11/23 10:00 Pulse Ox 98 09/11/23 10:00 BMI result Body Mass Index 34.8 Const General: healthy appearing, comfortable, no acute distress and alert Orientation/consciousness: patient oriented x3 Limitations: no limitations HEENT Head: Yes normal to inspection Ears: hearing grossly normal bilaterally Resp Effort & Inspection: normal respiratory effort and able to speak in complete sentences Cardio Rate: regular rate Skin General skin exam: no rashes or lesions noted Neuro General: patient oriented x3 Extrem Other: Left shoulder with pain with flexion 65 degrees, extension 45 degrees, abduction. Positive Moore test. Pulses sensation intact General: Yes normal to inspection Assessment & Plan Assessment & Plan (1) Shoulder pain: Code(s): M25.519 - Pain in unspecified shoulder Qualifiers: Chronicity: acute Laterality: left Qualified Code(s): M25.512 - Pain in left shoulder Plan: Left shoulder with pain with flexion 65 degrees, extension 45 degrees, abduction. Positive Moore test. Pulses sensation intact. Psych is affect ligamentous injury versus shoulder strain. Will suspicion for acute fracture will shoot x-rays. xrays negative. will refer for PT and orthopedics. Discharge instructions, follow up and treatment are discussed with patient in my usual fashion. Alternatives in treatment are also discussed. The patient will return for worsening symptoms or as needed. Advised that any labs/imaging o rdered will be followed up on and contact made if further treatment needed. Counseled that patient's condition may require further evaluation and/or treatment. Symptoms of concern for worsening disorder discussed in detail in my customary manner. Patient does verbalize understanding of the plan, there are no apparent barriers to communication. The patient is given the opportunity to ask questions and have them answered to his/her satisfaction Orders: Orders XR shoulder LT min 2V Today M25.519 - Pain in unspecified shoulder PT Evaluation and Treatment Today M25.512 - Pain in left shoulder Referrals Orthopedics Referral M25.512 - Pain in left shoulder Coding Level of Care Code Est Pt Level 4 (79135) Diagnoses Acute pain of left shoulder M25.512 Chronicity: acute Laterality: left
== END 2023-09-11 10:41 | disposition home or self-care (01) ==
PROVIDERS: Visit Provider Physician Assistant
DX: M25.512 Pain in left shoulder (principal)
CPT/HCPCS: 99214

== ENCOUNTER 2023-09-11 10:15 | Outpatient (REF) | payer OTHER, SELFPAY ==
--- NOTE | ~2023-09-11 | XR_ITS ---
EXAMINATION: XR SHOULDER, LEFT CLINICAL INFORMATION: Pain left shoulder COMPARISON: None available. TECHNIQUE: AP external rotation, Grashey, scapular Y, and axillary views of the left shoulder. FINDINGS: There is mild loss of glenohumeral joint space with inferior periarticular spurring. The AC joint is maintained normal. The soft tissues are normal. XR/XR shoulder LT min 2V IMPRESSION: Mild degenerative changes left AC joint. No visible acute fracture or dislocation seen.
== END 2023-09-11 10:16 | disposition home or self-care (01) ==
LOC: HO.HMGCX 10:15
PROVIDERS: PCP Internal Medicine; Visit Provider Physician Assistant
DX: M25.512 Pain in left shoulder (principal)
CPT/HCPCS: 73030

== ENCOUNTER 2023-09-13 11:26 | Outpatient (AMB) | payer OTHER, SELFPAY ==
[2023-09-13 11:43] VITALS: BMI 34.8
--- NOTE | 2023-09-13 11:43 | A.OFFVIS_ITS ---
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 The patient states that she 1st injured her left shoulder approximately 2 years ago while lifting a heavy object. Since that time her symptoms have gotten worse. She did aggravate her shoulder several weeks ago when she fell directly onto her shoulder. She has difficulty lifting her left hand above shoulder height. She has had cortisone injections in the past which gave her minimal relief. She has also done physical therapy for 12 weeks over the last 6 months which aggravated her pain. She has failed 6 weeks of conservative treatment. She has tried Tylenol and anti-inflammatory medicines which gave her minimal relief. Patient has undergone 2 right shoulder surgeries in the past. She reports mild intermittent discomfort in her right shoulder. Allergies No Known Allergies Allergy (Verified 09/13/23 11:49) Medication List - Last Reconciled 09/13/23 by Arvind Lamb MD diclofenac sodium 75 mg PO BID ergocalciferol (vitamin D2) 1,250 mcg PO QWEEK escitalopram oxalate 10 mg PO DAILY famotidine (Pepcid) 20 mg PO BEDTIME PRN gabapentin 300 mg PO BID metoprolol tartrate 50 mg PO BID omeprazole 40 mg PO DAILY polyethylene glycol 3350 (Miralax) 17 grams PO DAILY sennosides (Natural Senna Laxative) 17.2 mg (2 x 8.6 mg) PO BEDTIME simethicone (Gas Relief (simethicone)) 80 mg PO TID-QID PRN PFSH Medical History BPPV (benign paroxysmal positional vertigo) Essential (primary) hypertension Helicobacter pylori (H. pylori) Osteoarthritis Surgical History Hx of colonoscopy Injury of right rotator cuff Family History Father Alcoholism Substance use disorder Mother Arthritis Brother Colon cancer, Onset Age: 55 Social History (Updated 09/13/23 @ 11:50 by Ivory Lawrence [facility]) Housing: Apartment Alcohol intake: never Patient Tobacco Use Status: Never used Tobacco e-Cigarette/Vaping Use: Never Used Second Hand Smoke Exposure: No service: No Current occupational status: disabled Current occupation: rt hand Sexual orientation: Straight/Heterosexual Gender identity: Female Cognitive needs: No Hearing needs: No Vision needs: Yes (glasses) Physical Exam Vital Signs: BMI result Body Mass Index 34.8 Const Other: Well-nourished well-developed very friendly female awake alert and oriented x3 in no acute distress Extrem Other: Bilateral upper extremity examination shows good capillary refill, no skin lesions noted, normal sensation light touch Left shoulder examination shows decreased range of motion when compared to her right shoulder, 4/5 strength with supraspinatus testing, positive impingement signs, tenderness over her acromioclavicular joint, no instability Results Reviewed Results Reviewed: X-rays of the patient's left shoulder show severe acromioclavicular joint narrowing, a type 2 acromion, no acute bony abnormalities Assessment & Plan Assessment & Plan (1) Left shoulder pain: Code(s): M25.512 - Pain in left shoulder Plan: Ms. Herrera presents with progressively worsening left shoulder pain and weakness possibly due to a rotator cuff tear. Thus, I will send the patient for an MRI of her left shoulder for further evaluation. If she does have a full-thickness tear I will recommend surgical repair to optimize her future functional level. Patient will continue with gentle range of motion exercises in the meantime to prevent stiffness. I will see her back once the MRI is completed to discuss the findings and treatment options. Feel free to call me at any time questions regarding her orthopedic management arise. Thank you very much for asking me to see this very friendly patient. I spent 22 minutes in reviewing the patient's records and imaging studies, seeing the patient and documenting in the medical record. Orders: Orders MR shoulder LT wo con Today M25.512 - Pain in left shoulder Coding Level of Care Code New Pt Level 2 (14541) Diagnoses Left shoulder pain M25.512
== END 2023-09-13 12:02 | disposition home or self-care (01) ==
PROVIDERS: PCP Internal Medicine; Visit Provider Orthopaedic Surgery
DX: M25.512 Pain in left shoulder (principal)
CPT/HCPCS: 99202

== ENCOUNTER → 2023-09-13 11:26 | Outpatient (BNVA) | payer OTHER, SELFPAY | PROVIDERS: PCP Internal Medicine; Visit Provider Orthopaedic Surgery | DX: M25.512 Pain in left shoulder (principal) | CPT/HCPCS: 99202 ==

== ENCOUNTER 2023-09-27 11:16 | Outpatient (AMB) | payer OTHER, SELFPAY ==
--- NOTE | 2023-09-27 11:42 | A.OFFVIS_ITS ---
Intake Intake Visit Reasons: Left shoulder pain Intake Note: Ms. Herrera presents with complaints of progressively worsening left shoulder pain. She describes her pain as sharp in nature. Her symptoms have gotten worse over the last year in spite of continued non operative treatments. She has done physical therapy for 12 weeks over the last 6 months which aggravated her pain. She has also tried anti-inflammatory medicines and Tylenol which gave her minimal relief. The patient has had cortisone injections in the past which gave her no relief. She has had 2 surgeries on her right shoulder in the past. She reports minimal discomfort in her right shoulder. Patient reports diffic ulty lifting her left hand above shoulder height. Allergies No Known Allergies Allergy (Verified 09/27/23 11:44) Medication List - Last Reconciled 09/27/23 by Hortencia Ramirez RN diclofenac sodium 75 mg PO BID ergocalciferol (vitamin D2) 1,250 mcg PO QWEEK escitalopram oxalate 10 mg PO DAILY famotidine (Pepcid) 20 mg PO BEDTIME PRN gabapentin 300 mg PO BID metoprolol tartrate 50 mg PO BID omeprazole 40 mg PO DAILY polyethylene glycol 3350 (Miralax) 17 grams PO DAILY sennosides (Natural Senna Laxative) 17.2 mg (2 x 8.6 mg) PO BEDTIME simethicone (Gas Relief (simethicone)) 80 mg PO TID-QID PRN PFSH Medical History BPPV (benign paroxysmal positional vertigo) Essential (primary) hypertension Helicobacter pylori (H. pylori) Osteoarthritis Surgical History Hx of colonoscopy Injury of right rotator cuff Family History Father Alcoholism Substance use disorder Mother Arthritis Brother Colon cancer, Onset Age: 55 Social History (Updated 09/13/23 @ 11:50 by CORKY Singh) Housing: Apartment Alcohol intake: never Patient Tobacco Use Status: Never used Tobacco e-Cigarette/Vaping Use: Never Used Second Hand Smoke Exposure: No service: No Current occupational status: disabled Current occupation: rt hand Sexual orientation: Straight/Heterosexual Gender identity: Female Cognitive needs: No Hearing needs: No Vision needs: Yes (glasses) Physical Exam Const Other: Well-nourished well-developed very friendly female awake alert and oriented x3 in no acute distress Extrem Other: Bilateral upper extremity examination shows good capillary refill, no skin lesions noted, normal sensation light touch Left shoulder examination shows decreased range of motion when compared to her right shoulder, 4+ out of 5 strength with supraspinatus testing, positive impingement signs, tenderness over her acromioclavicular joint Results Reviewed Results Reviewed: MRI of the patient's left shoulder show severe acromioclavicular joint narrowing, a type 2 acromion, no acute bony abnormalities Assessment & Plan Assessment & Plan (1) Left shoulder pain: Code(s): M25.512 - Pain in left shoulder Plan Ms. Herrera presents with left shoulder pain due to impingement syndrome and acromioclavicular joint arthritis. I had a lengthy discussion with the patient regarding the treatment options. At this point she has failed continued non operative treatments. The risks and benefits of left shoulder arthroscopic surgery were discussed at length with the patient. The patient wishes to proceed with surgery. Surgery will most likely involve left shoulder diagnostic arthroscopy with distal clavicle excision and acromioplasty. The patient will contact my office to pick a surgery date. I will see her back 1 week prior to her surgery to answer any final questions that she might have. Feel free to call me at any time should questions regarding her orthopedic management arise. I spent 22 minutes in reviewing the patient's records and imaging studies, seeing the patient and documenting in the medical record. Coding Level of Care Code Est Pt Level 2 (81661) Diagnoses Left shoulder pain M25.512
== END 2023-09-27 12:01 | disposition home or self-care (01) ==
PROVIDERS: PCP Internal Medicine; Visit Provider Orthopaedic Surgery
DX: M25.512 Pain in left shoulder (principal)
CPT/HCPCS: 99212

== ENCOUNTER → 2023-09-27 11:16 | Outpatient (BNVA) | payer OTHER, SELFPAY | PROVIDERS: PCP Internal Medicine; Visit Provider Orthopaedic Surgery | DX: M25.512 Pain in left shoulder (principal) | CPT/HCPCS: 99212 ==

== ENCOUNTER 2023-11-06 10:09 | Outpatient (AMB) | payer OTHER, SELFPAY ==
--- NOTE | 2023-11-06 10:10 | A.OFFVIS_ITS ---
Intake Intake Visit Reasons: Pre-Lt Shld Intake Note: Ms. Hrerera presents with complaints of progressively worsening left shoulder pain. She describes her pain as sharp in nature. Her symptoms have gotten worse over the last year in spite of continued non operative treatments. She klein s done physical therapy for 12 weeks over the last 6 months which aggravated her pain. She has also tried anti-inflammatory medicines and Tylenol which gave her minimal relief. The patient has had cortisone injections in the past which gave her no relief. She has had 2 surgeries on her right shoulder in the past. She reports minimal discomfort in her right shoulder. Patient reports difficulty lifting her left hand above shoulder height. Allergies No Known Allergies Allergy (Verified 11/06/23 10:15) Medication List - Last Reconciled 11/06/23 by Arvind Lamb MD diclofenac sodium 75 mg PO BID ergocalciferol (vitamin D2) 1,250 mcg PO QWEEK escitalopram oxalate 10 mg PO DAILY famotidine (Pepcid) 20 mg PO BEDTIME PRN gabapentin 300 mg PO BID meclizine 25 mg PO TID PRN 5 days metoprolol tartrate 50 mg PO BID omeprazole 40 mg PO DAILY polyethylene glycol 3350 (Miralax) 17 grams PO DAILY sennosides (Natural Senna Laxative) 17.2 mg (2 x 8.6 mg) PO BEDTIME simethicone (Gas Relief (simethicone)) 80 mg PO TID-QID PRN PFSH Medical History BPPV (benign paroxysmal positional vertigo) Essential (primary) hypertension Helicobacter pylori (H. pylori) Osteoarthritis Surgical History Hx of colonoscopy Injury of right rotator cuff Family History Father Alcoholism Substance use disorder Mother Arthritis Brother Colon cancer, Onset Age: 55 Social History (Updated 09/13/23 @ 11:50 by CORKY Singh) Housing: Apartment Alcohol intake: never Patient Tobacco Use Status: Never used Tobacco e-Cigarette/Vaping Use: Never Used Second Hand Smoke Exposure: No service: No Current occupational status: disabled Current occupation: rt hand Sexual orientation: Straight/Heterosexual Gender identity: Female Cognitive needs: No Hearing needs: No Vision needs: Yes (glasses) Physical Exam Const Other: Well-nourished well-developed very friendly female awake alert and oriented x3 in no acute distress Lungs - clear to auscultation bilaterally with symmetric expansion Cardiovascular exam - regular rate and rhythm Abdominal exam - soft nontender nondistended Extrem Other: Bilateral upper extremity examination shows good capillary refill, no skin lesions noted, normal sensation light touch Left shoulder examination shows decreased range of motion when compared to her right shoulder, 4+ out of 5 strength with supraspinatus testing, positive impingement signs, tenderness over her acromioclavicular joint, no instability Assessment & Plan Assessment & Plan (1) Left shoulder pain: Code(s): M25.512 - Pain in left shoulder Plan Ms. Herrera presents with left shoulder pain due to impingement syndrome and acromioclavicular joint arthritis. I had a lengthy discussion with the patient regarding the treatment options. At this point she has failed continued non operative treatments. The risks and benefits of left shoulder arthroscopic surgery were discussed at length with the patient. The patient wishes to proceed with surgery. Surgery will most likely involve left shoulder diagnostic arthroscopy with distal clavicle excision and acromioplasty. The patient was given a prescription for Percocet at her preoperative appointment. She will follow-up as instructed. Feel free to call me at any time should questions regarding her orthopedic management arise. I spent 22 minutes in reviewing the patient's records and imaging studies, seeing the patient and documenting in the medical record. Medications: New oxycodone-acetaminophen 5-325 mg (Percocet) Partial Fill upon patient request. 2 tabs PO Q4H PRN 40 tabs 0RF pain Coding Level of Care Code Est Pt Level 2 (20478) Diagnoses Left shoulder pain M25.512
== END 2023-11-06 10:34 | disposition home or self-care (01) ==
PROVIDERS: PCP Internal Medicine; Visit Provider Orthopaedic Surgery
DX: M25.512 Pain in left shoulder (principal)
CPT/HCPCS: 99212

== ENCOUNTER → 2023-11-06 10:09 | Outpatient (BNVA) | payer OTHER, SELFPAY | PROVIDERS: PCP Internal Medicine; Visit Provider Orthopaedic Surgery | DX: M25.512 Pain in left shoulder (principal) | CPT/HCPCS: 99212 ==

== ENCOUNTER 2023-11-16 05:58 | Day surgery (SDC) | payer OTHER, SELFPAY ==
[2023-11-13 14:38] VITALS: BMI 35.0
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
[2023-11-16] VITALS (7 sets, daily range): BP systolic 136–166; BP diastolic 76–84; PULSE 61–71; RESP 16; TEMP 36.1–37.1; O2SAT 94–97; BMI 36.5
[2023-11-16] MEDS: Lactated Ringers 1,000 ML 100 ML IVCONT (06:38)
--- NOTE | 2023-11-16 08:51 | P.BOP_ITS ---
Brief Operative Note Date of Service: 11/16/23 Pre-op diagnosis: Left shoulder impingement syndrome, left shoulder acromioclavicular joint arthritis Post-op diagnosis: same Procedure: Left shoulder diagnostic arthroscopy with left shoulder arthroscopic distal clavicle excision, left shoulder arthroscopic acromioplasty Implants: none Surgeon: Arvind Lamb MD Anesthesia: GLMA and regional Was an Check Processing Clerk used for this Procedure?: No Estimated blood loss (mL): 10 Pathology: none sent Condition: stable Disposition: PACU
--- NOTE | 2023-11-16 08:52 | P.OP_ITS ---
Operative Note Operative Note Date of Service: 11/16/23 Narrative: After the patient was identified as Wendi Herrera and her left shoulder was initialed by myself the patient was brought to the holding area where a left shoulder interscalene regional block was performed by the anesthesiologist in routine fashion. The patient was then brought to the operating room where general anesthesia was induced by the anesthesiologist in routine fashion. The patient was given 2 g of IV Ancef preoperatively for infection prophylaxis. Examination under anesthesia of the patient's left shoulder showed full passive range of motion of the patient's left shoulder when compared to the right. The patient was gently positioned in the beach chair position with all bony prominences well padded. The patient's left shoulder region and upper extremity were prepped and draped in sterile fashion. A formal time-out was completed. A #11 scalpel blade was used to make a posterior portal 2 cm inferior and 1 cm medial to the posterolateral corner of the acromion. Blunt trocar technique was used to enter the glenohumeral joint in routine fashion. An anterior portal was made just lateral to the coracoid process after proper positioning was confirmed using a spinal needle. Diagnostic arthroscopy showed minimal degenerative changes of the glenoid and humeral head articular surfaces. There was no evidence of rotator cuff tearing. There was no evidence of injury to the biceps tendon or its insertion onto the glenoid. There was no inflammation of the anterior joint capsule. The arthroscope was then placed from the posterior portal into the subacromial space. A lateral portal was made 2 fingerbreadths lateral to the anterior lateral corner of the acromion. The ArthroCare Wand was used to ablate soft tissues along the undersurface of the acromion as well as to excise the coracoacromial ligament. There was a sharp spur along the undersurface of the acromion which was removed using the hooded bur. The arthroscope was then placed into the lateral portal and the acromioplasty was co mpleted with the bur in the posterior portal using the posterior aspect of the acromion as a cutting block. The ArthroCare Wand was then brought in through the anterior portal and was used to ablate soft tissues along the acromioclavicular joint and distal clavicle. The posterior and superior ligamentous structures were left intact. A distal clavicle excision of 8 mm was performed using the hooded bur. Any remaining bursal tissue was removed using the arthroscopic shaver. The subacromial space was irrigated and then drained. All arthroscopic instruments were removed. The 3 portals were closed with 3-0 nylon interrupted suture. The subacromial space was injected with Marcaine. Dry sterile dressing was placed over all incisions. The patient's left upper extremity was placed into a sling. The patient was awoken and extubated in the operating room. The patient was transferred to the recovery room in stable condition.
[2023-11-16] MEDS: cefTRIAXone sodium 1 GM in 0.9 % Sodium Chloride 50 ML IV (09:09)
== END 2023-11-16 10:00 | disposition home or self-care (01) ==
PROVIDERS: PCP Internal Medicine; Visit Provider Orthopaedic Surgery
PROC: (CPT 29805; principal; 2023-11-16 07:30)
DX: M75.42 Impingement syndrome of left shoulder (principal); M19.012 Primary osteoarthritis, left shoulder; M25.512 Pain in left shoulder; I10 Essential (primary) hypertension; H81.10 Benign paroxysmal vertigo, unspecified ear; Z79.899 Other long term (current) drug therapy; Z98.890 Other specified postprocedural states
CPT/HCPCS: 29824; 29826; J0171; J0690; J0696; J1100; J1885; J2371; J2405; J2704; J2795

== ENCOUNTER → 2023-11-16 05:58 | Outpatient (BNV) | payer OTHER, SELFPAY | PROVIDERS: PCP Internal Medicine; Visit Provider Orthopaedic Surgery | DX: M75.42 Impingement syndrome of left shoulder (principal); M19.012 Primary osteoarthritis, left shoulder | CPT/HCPCS: 29824; 29826 ==

== ENCOUNTER 2023-11-29 11:21 | Outpatient (AMB) | payer OTHER, SELFPAY ==
--- NOTE | 2023-11-29 11:44 | MHC.OFFVIS ---
Intake Intake Visit Reasons: PO-Lt Shld 11/16/23 DR Intake Note: Wendi is a 63 yr old, presenting today for post op on her left shoulder. She states she is having moderate discomfort in her left shoulder. She denies any fevers or chills. She continues with her home stretching program. She takes Percocet which gives her fairly good relief. Cannon Crewmember Required: No Allergies No Known Allergies Allergy (Verified 11/29/23 11:47) Medication List - Last Reconciled 11/29/23 by Arvind Lamb MD diclofenac sodium 75 mg PO BID ergocalciferol (vitamin D2) 1,250 mcg PO QWEEK escitalopram oxalate 10 mg PO DAILY famotidine (Pepcid) 20 mg PO BEDTIME PRN gabapentin 300 mg PO BID meclizine 25 mg PO TID PRN 5 days metoprolol tartrate 50 mg PO BID omeprazole 40 mg PO DAILY oxycodone-acetaminophen 5-325 mg (Percocet) 1 tab PO Q4H PRN 6 days polyethylene glycol 3350 (Miralax) 17 grams PO DAILY sennosides (Natural Senna Laxative) 17.2 mg (2 x 8.6 mg) PO BEDTIME simethicone (Gas Relief (simethicone)) 80 mg PO TID-QID PRN PFSH Medical History Injury of left rotator cuff Anxiety Depression GERD (gastroesophageal reflux disease) Helicobacter pylori (H. pylori) Osteoarthritis Essential (primary) hypertension BPPV (benign paroxysmal positional vertigo) Surgical History (Updated 11/29/23 @ 11:51 by PARISA Villela) Hx of shoulder surgery Hx of colonoscopy Family History Father Alcoholism Substance use disorder Mother Arthritis Brother Colon cancer, Onset Age: 55 Social History Housing: Apartment Alcohol intake: never Patient Tobacco Use Status: Never used Tobacco e-Cigarette/Vaping Use: Never Used Second Hand Smoke Exposure: No service: No Current occupational status: disabled Current occupation: rt hand Sexual orientation: Straight/Heterosexual Gender identity: Female Cognitive needs: No Hearing needs: No Vision needs: Yes (glasses) Physical Exam Const Other: Left shoulder examination shows that the surgical incisions are healing well, no erythema, decreased range of motion when compared to her right shoulder, mild to moderate discomfort with range of motion Assessment & Plan Assessment & Plan (1) Left shoulder pain: Code(s): M25.512 - Pain in left shoulder Plan Ms. Herrera is doing well after undergoing left shoulder arthroscopic surgery on 11/16/2023. Her sutures were removed and Steri-Strips placed over her incisions. She will continue doing [id number] exercises on her own. She does not wish to go to formal physical therapy for now. The do's and don'ts of lifting were discussed at length with the patient. She will contact me prior to her follow-up appointment in 4-6 weeks should any questions or concerns arise. Feel free to call me at any time should questions regarding her orthopedic management arise. Medications: New oxycodone-acetaminophen 5-325 mg (Percocet) Partial Fill upon patient request. 1 tab PO Q4H 6 days PRN 35 tabs 0RF pain Coding Level of Care Code Global (43055) Diagnoses Left shoulder pain M25.512
== END 2023-11-29 12:09 | disposition home or self-care (01) ==
PROVIDERS: PCP Internal Medicine; Visit Provider Orthopaedic Surgery
DX: M25.512 Pain in left shoulder (principal)
CPT/HCPCS: 99024

== ENCOUNTER → 2023-11-29 11:21 | Outpatient (BNVA) | payer OTHER, SELFPAY | PROVIDERS: PCP Internal Medicine; Visit Provider Orthopaedic Surgery | DX: Z47.89 Encounter for other orthopedic aftercare (principal); M25.512 Pain in left shoulder | CPT/HCPCS: 99212 ==

== ENCOUNTER 2023-12-27 10:39 | Outpatient (AMB) | payer OTHER, SELFPAY ==
--- NOTE | 2023-12-27 10:41 | MHC.OFFVIS ---
Intake Intake Visit Reasons: PO-Lt Shld 11/16/23 Intake Note: Wendi is a 63 year old female who presents for a post operative appointment of her Left shoulder 11/16/2023 . The patient reports mild to moderate discomfort in her left shoulder. She continues with a home stretching program. She denies any fevers or chills. The patient states that her left shoulder feels better when compared to her preoperative pain. Allergies No Known Allergies Allergy (Verified 12/27/23 10:48) Medication List - Last Reconciled 12/27/23 by Arvind Lamb MD diclofenac sodium 75 mg PO BID ergocalciferol (vitamin D2) 1,250 mcg PO QWEEK escitalopram oxalate 10 mg PO DAILY famotidine (Pepcid) 20 mg PO BEDTIME PRN gabapentin 300 mg PO BID meclizine 25 mg PO TID PRN 5 days metoprolol tartrate 50 mg PO BID omeprazole 40 mg PO DAILY oxycodone-acetaminophen 5-325 mg (Percocet) 1 tab PO Q4H PRN 6 days polyethylene glycol 3350 (Miralax) 17 grams PO DAILY sennosides (Natural Senna Laxative) 17.2 mg (2 x 8.6 mg) PO BEDTIME simethicone (Gas Relief (simethicone)) 80 mg PO TID-QID PRN PFSH Medical History Injury of left rotator cuff Anxiety Depression GERD (gastroesophageal reflux disease) Helicobacter pylori (H. pylori) Osteoarthritis Essential (primary) hypertension BPPV (benign paroxysmal positional vertigo) Surgical History Hx of shoulder surgery Hx of colonoscopy Family History Father Alcoholism Substance use disorder Mother Arthritis Brother Colon cancer, Onset Age: 55 Social History Housing: Apartment Alcohol intake: never Patient Tobacco Use Status: Never used Tobacco e-Cigarette/Vaping Use: Never Used Second Hand Smoke Exposure: No service: No Current occupational status: disabled Current occupation: rt hand Sexual orientation: Straight/Heterosexual Gender identity: Female Cognitive needs: No Hearing needs: No Vision needs: Yes (glasses) Physical Exam Extrem Other: Left shoulder examination shows slightly decreased range of motion when compared to her right shoulder, mild to moderate discomfort with range of motion, 5/5 strength with supraspinatus testing Assessment & Plan Assessment & Plan (1) Left shoulder pain: Code(s): M25.512 - Pain in left shoulder Plan Ms. Herrera continues to do well after undergoing left shoulder arthroscopic surgery on 11/16/2023. She will continue with her home stretching program. She does not wish to go to formal physical therapy. The do's and don'ts of lifting were discussed at length with the patient. She will contact me prior to her follow-up appointment in 6 weeks should any questions or concerns arise. Feel free to call me at any time should questions regarding her orthopedic management arise. Coding Level of Care Code Global (74839) Diagnoses Left shoulder pain M25.512
== END 2023-12-27 11:11 | disposition home or self-care (01) ==
PROVIDERS: PCP Internal Medicine; Visit Provider Orthopaedic Surgery
DX: M25.512 Pain in left shoulder (principal)
CPT/HCPCS: 99024

== ENCOUNTER → 2023-12-27 10:39 | Outpatient (BNVA) | payer OTHER, SELFPAY | PROVIDERS: PCP Internal Medicine; Visit Provider Orthopaedic Surgery | DX: M25.512 Pain in left shoulder (principal); Z98.890 Other specified postprocedural states | CPT/HCPCS: 99212 ==

== ENCOUNTER 2024-01-16 09:15 | Outpatient (AMB) | payer OTHER, SELFPAY ==
--- NOTE | 2024-01-16 09:17 | MHC.OFFVIS ---
Intake Vital Signs 01/16/24 09:18 Height 5 ft Weight 189 lb 9.561 oz BMI 37.0 BP 172/79 H Blood Pressure Location Rt brachial Position Sitting Pulse 72 Pulse Source Pulse Oximeter Intake Visit Reasons: follow up abd pain/heartburn Intake Note: Pt presents to the office today for a follow up for abdominal pain/heartburn. Pt states she is still having heartburn and she states she will even get it in the morning right when she wakes up. She denies any N/V. Pt states she did have a bout of diarrhea this morning but hasn't been having issues with diarrhea. Allergies No Known Allergies Allergy (Verified 01/16/24 09:20) HPI follow up abd pain/heartburn HPI Details LAST VISIT Chronic GERD Continue omeprazole every morning. May use famotidine on as needed basis. Continue avoiding dietary triggers and late night snacking. Staying upright for minimum 3 hours after meals discussed with patient. Constipation Continue current management with MiraLax. May use Senokot on as needed basis. Patient was encouraged to increase fluid intake and activity to promote better bowel motility. Postprandial abdominal bloating Patient reports improvement in postprandial abdominal bloating now that she is moving her bowels better. Patient is also watching her diet Screen for colon cancer Patient does not want to have a colonoscopy at this time. History of colonoscopy in the past, over a decade ago though. Patient agreed to have Cologuard. Please send Cologuard to patient. Patient is aware that if Cologuard comes back positive recommendation will be to go for colonoscopy. I will see patient in 6 months, sooner on as needed basis. Patient is agreeable to this plan and verbalizes understanding of instructions. She was given the opportunity to ask questions and all questions answered for the ? Thank you for allowing me to participate in her care Plan Medications Refilled omeprazole 40 mg PO DAILY 90 caps 3RF K21.9 - Gastro-esophageal reflux disease without esophagitis simethicone (Gas Relief (simethicone)) 80 mg PO TID-QID PRN 120 tabs 4RF abdominal distention TODAY'S VISIT: Patient is here today for follow-up. Patient reports that she has been feeling worse in the past couple months. Patient states that she is having hard time sleeping, sometimes stays up to 3 in the morning. She will have snacks during the night as she feels hungry. Patient reports epigastric burning mostly in the morning when she wakes up. Patient states that she takes famotidine at bedtime, however feels like it has not helping with her symptoms. Patient continues to have epigastric burning throughout the day. History of H pylori in the past. Currently taking omeprazole every morning. Patient denies any nausea or vomiting. Reports postprandial abdominal bloating. Reports dyspepsia without dysphagia or odynophagia. [facility] Medical History Injury of left rotator cuff Anxiety Depression GERD (gastroesophageal reflux disease) Helicobacter pylori (H. pylori) Osteoarthritis Essential (primary) hypertension BPPV (benign paroxysmal positional vertigo) Surgical History Hx of shoulder surgery Hx of colonoscopy Family History Father Alcoholism Substance use disorder Mother Arthritis Brother Colon cancer, Onset Age: 55 Social History Housing: Apartment Alcohol intake: never Patient Tobacco Use Status: Never used Tobacco e-Cigarette/Vaping Use: Never Used Second Hand Smoke Exposure: No service: No Current occupational status: disabled Current occupation: rt hand Sexual orientation: Straight/Heterosexual Gender identity: Female Cognitive needs: No Hearing needs: No Vision needs: Yes (glasses) Review of Systems Const Denies weight gain and Denies weight loss ENT Reports no additional complaints, Denies dysphagia and Denies odynophagia Card Reports no additional complaints Resp Reports no additional complaints GI Reports abdominal pain (epigastric), Denies belching, Denies melena, Reports bloating, Denies change in bowel habits, Denies dysphagia, Denies excessive flatus, Reports dyspepsia, Reports heartburn, Denies diarrhea, Denies loose stools, Denies nausea, Denies odynophagia and Denies vomiting Reports no additional complaints Musc Reports no additional complaints Neuro Reports no additional complaints Psych Reports no additional complaints Endo Reports no additional complaints Physical Exam Vital Signs: BMI result Body Mass Index 37.0 Const General: healthy appearing, no acute distress and well developed Nutritional Appearance: well nourished Orientation/consciousness: patient oriented x3 Resp Effort & Inspection: normal respiratory effort, able to speak in complete sentences, no tracheal deviation and symmetric chest movement Auscultation: clear to auscultation bilaterally Cardio Rate: regular rate GI Inspection: Yes normal to inspection and No distended Palpation (GI): Soft to palpation, not firm, nontender and No hepatosplenomegaly present Auscultation: normal bowel sounds General: Yes no CVA tenderness Back/Spine/Pelvis Back: no CVA tenderness Skin General skin exam: elasticity normal, turgor normal and dry skin Neuro General: patient oriented x3 Psych Appearance: grossly normal Mental Status: mental status grossly normal Assessment & Plan Assessment & Plan (1) Chronic GERD: Code(s): K21.9 - Gastro-esophageal reflux disease without esophagitis (2) Bloating: Code(s): R14.0 - Abdominal distension (gaseous) (3) Postprandial abdominal bloating: Code(s): R14.0 - Abdominal distension (gaseous) (4) Postprandial epigastric pain: Code(s): R10.13 - Epigastric pain (5) History of Helicobacter pylori infection: Code(s): Z86.19 - Personal history of other infectious and parasitic diseases Plan Patient reports epigastric pain postprandially, denies any nausea or vomiting. Will change PPI to Nexium in the morning. Patient will take sucralfate at bedtime. Discussed with patient avoiding dietary triggers and late night snacking. Staying upright for minimum 3 hours after meals discussed with patient. Will send her to check liver profile, lipase, will check for H pylori. Will treat patient empirically if positive. Patient will be send for upper endoscopy to check for H pylori, gastric or peptic ulcers, gastritis, esophagitis, duodenitis. I will see patient after the procedure, sooner on as needed basis. Patient will call the office if she will continue to have epigastric discomfort despite shins in the treatment and changing her diet. She is agreeable to current plan and verbalizes understanding of instructions. She was given the opportunity to ask questions and all questions answered. Thank you for allowing me to participate in her care Orders: Orders Lipase Today R10.9 - Unspecified abdominal pain Liver Panel Today R74.01 - Elevation of levels of liver transaminase levels H pylori Ag Stool Today K21.9 - Gastro-esophageal reflux disease without esophagitis Medications: New esomeprazole magnesium (Nexium) 40 mg PO DAILY 30 caps 5RF K21.9 - Gastro-esophageal reflux disease without esophagitis sucralfate 1 g PO BEDTIME 30 tabs 4RF R19.7 - Diarrhea, unspecified Discontinued sennosides (Natural Senna Laxative) Discontinued Reason: Patient no longer taking 17.2 mg (2 x 8.6 mg) PO BEDTIME 60 tabs 1RF constipation K59.00 - Constipation, unspecified omeprazole Discontinued Reason: Doctor's Order 40 mg PO DAILY 90 caps 3RF K21.9 - Gastro-esophageal reflux disease without esophagitis famotidine (Pepcid) Discontinued Reason: Doctor's Order 20 mg PO BEDTIME PRN 30 tabs 3RF acid reflux K21.9 - Gastro-esophageal reflux disease without esophagitis Coding Level of Care Code Est Pt Level 4 (75544) Diagnoses Chronic GERD K21.9 Bloating R14.0 Postprandial abdominal bloating R14.0 Postprandial epigastric pain R10.13 History of Helicobacter pylori infection Z86.19 Time Spent (min) 35 Comment 25 minutes spent with patient and additional 10 minutes spent reviewing her records
[2024-01-16 09:18] VITALS: BP 172/79; PULSE 72; BMI 37.0
== END 2024-01-16 09:37 | disposition home or self-care (01) ==
PROVIDERS: PCP Internal Medicine; Visit Provider Nurse Practitioner Family
DX: K21.9 Gastro-esophageal reflux disease without esophagitis (principal); R14.0 Abdominal distension (gaseous); R10.13 Epigastric pain; Z86.19 Personal history of other infectious and parasitic diseases
CPT/HCPCS: 99214

== ENCOUNTER 2024-01-16 09:15 | Outpatient (REF) | payer OTHER, SELFPAY ==
[2024-01-16 11:09] LABS: Alanine Aminotransferase 15 U/L (0-31); Alkaline Phosphatase 85 U/L (39-117); Aspartate Amino Transferase 18 U/L (5-31); Bilirubin Direct 0.2 mg/dL (0.0-0.5); Bilirubin Total 0.4 mg/dL (0.0-1.0); Lipase 29 U/L (8-78)
== END 2024-01-16 09:16 | disposition home or self-care (01) ==
LOC: HO.LAB 09:15
PROVIDERS: PCP Internal Medicine; Visit Provider Nurse Practitioner Family
DX: R10.9 Unspecified abdominal pain (principal); R12 Heartburn; K21.9 Gastro-esophageal reflux disease without esophagitis; R14.0 Abdominal distension (gaseous); R19.7 Diarrhea, unspecified; K59.00 Constipation, unspecified; R74.01 Elevation of levels of liver transaminase levels; Z86.19 Personal history of other infectious and parasitic diseases
CPT/HCPCS: 36415; 80076; 83690; 99212

== ENCOUNTER 2024-01-21 09:10 | Outpatient (REF) | payer OTHER, SELFPAY | END 2024-01-21 09:11 | disposition home or self-care (01) | LOC: HO.MAMMO 09:10 | PROVIDERS: PCP Internal Medicine; Visit Provider Internal Medicine | DX: Z12.31 Encounter for screening mammogram for malignant neoplasm of breast (principal) | CPT/HCPCS: 77063; 77067 ==

== ENCOUNTER → 2024-01-21 09:30 | Outpatient (BNV) | payer OTHER, SELFPAY | PROVIDERS: PCP Internal Medicine; Visit Provider Radiology Diagnostic Radiology | DX: Z12.31 Encounter for screening mammogram for malignant neoplasm of breast (principal) | CPT/HCPCS: 77063; 77067 ==

== ENCOUNTER 2024-02-14 11:00 | Outpatient (AMB) | payer OTHER, SELFPAY ==
--- NOTE | 2024-02-14 11:19 | MHC.OFFVIS ---
Intake Vital Signs 02/14/24 11:20 Height 5 ft Weight 189 lb BMI 36.9 Intake Visit Reasons: OV-Lt Shld 11/16/23 DR-follow up Intake Note: Wendi is a 63 year old female who presents for her post operative appointment s/p Left shoulder on 11/16/2023 DR. Patient reports she is having some improvement. She is doing home exercises and states they are getting easier to do. She has been taking diclofenac which gives her minimal relief. Allergies No Known Allergies Allergy (Verified 02/14/24 11:38) Medication List - Last Reconciled 02/14/24 by Arvind Lamb MD celecoxib (Celebrex) 200 mg PO BID diclofenac sodium 75 mg PO BID ergocalciferol (vitamin D2) 1,250 mcg PO QWEEK escitalopram oxalate 10 mg PO DAILY esomeprazole magnesium (Nexium) 40 mg PO DAILY gabapentin 300 mg PO BID meclizine 25 mg PO TID PRN 5 days metoprolol tartrate 50 mg PO BID polyethylene glycol 3350 (Miralax) 17 grams PO DAILY simethicone (Gas Relief (simethicone)) 80 mg PO TID-QID PRN sucralfate 1 g PO BEDTIME PFSH Medical History Injury of left rotator cuff Anxiety Depression GERD (gastroesophageal reflux disease) Helicobacter pylori (H. pylori) Osteoarthritis Essential (primary) hypertension BPPV (benign paroxysmal positional vertigo) Surgical History Hx of shoulder surgery Hx of colonoscopy Family History Father Alcoholism Substance use disorder Mother Arthritis Brother Colon cancer, Onset Age: 55 Social History Housing: Apartment Alcohol intake: never Patient Tobacco Use Status: Never used Tobacco e-Cigarette/Vaping Use: Never Used Second Hand Smoke Exposure: No service: No Current occupational status: disabled Current occupation: rt hand Sexual orientation: Straight/Heterosexual Gender identity: Female Cognitive needs: No Hearing needs: No Vision needs: Yes (glasses) Physical Exam Vital Signs: BMI result Body Mass Index 36.9 Const Other: Well-nourished well-developed very friendly female awake alert and oriented x3 in no acute distress Extrem Other: Bilateral upper extremity examination shows good capillary refill, no skin lesions noted, normal sensation light touch Left shoulder examination shows slightly decreased range of motion when compared to her right shoulder, minimal discomfort with resisted forward flexion, no discomfort with resisted internal or external rotation Assessment & Plan Assessment & Plan (1) Left shoulder pain: Code(s): M25.512 - Pain in left shoulder Plan Ms. Herrera continues to do fairly well after undergoing left shoulder arthroscopic surgery on 11/16/2023. She will continue with her home exercise program. The do's and don'ts of lifting were discussed at length with the patient. I did give the patient a prescription for Celebrex which she will try instead of the diclofenac. She will contact me prior to her follow-up appointment in 2 months should any questions or concerns arise. Feel free to call me at any time should questions regarding her orthopedic management arise. I spent 19 minutes in reviewing the patient's records and imaging studies, seeing the patient and documenting in the medical record. Medications: New celecoxib (Celebrex) 200 mg PO BID 60 caps 2RF Coding Level of Care Code Est Pt Level 2 (95949) Diagnoses Left shoulder pain M25.512
[2024-02-14 11:20] VITALS: BMI 36.9
== END 2024-02-14 11:54 | disposition home or self-care (01) ==
PROVIDERS: PCP Internal Medicine; Visit Provider Orthopaedic Surgery
DX: M25.512 Pain in left shoulder (principal)
CPT/HCPCS: 99024

== ENCOUNTER → 2024-02-14 11:00 | Outpatient (BNVA) | payer OTHER, SELFPAY | PROVIDERS: PCP Internal Medicine; Visit Provider Orthopaedic Surgery | DX: M25.512 Pain in left shoulder (principal); Z98.890 Other specified postprocedural states; Z79.899 Other long term (current) drug therapy | CPT/HCPCS: 99212 ==

== ENCOUNTER 2024-03-06 09:18 | Outpatient (AMB) | payer OTHER, SELFPAY ==
--- NOTE | 2024-03-06 09:20 | A.OFFPC_ITS ---
Vital Signs 03/06/24 09:22 03/06/24 09:51 Height 5 ft Weight 192 lb BMI 37.5 BP 170/100 H 170/90 H Blood Pressure Location Lt brachial Lt brachial Position Sitting Sitting Intake Visit Reasons: Annual Exam Intake Note: Patient here for a physical exam [employer] [place] Required: No Accompanied by: Self / Same As Patient Allergies No Known Allergies Allergy (Verified 03/06/24 09:32) Medication List - Last Reconciled 03/06/24 by Jeni Rajan MD celecoxib (Celebrex) 200 mg PO BID diclofenac sodium 75 mg PO BID ergocalciferol (vitamin D2) 1,250 mcg PO QWEEK escitalopram oxalate 10 mg PO DAILY esomeprazole magnesium (Nexium) 40 mg PO DAILY gabapentin 300 mg PO BID metoprolol tartrate 50 mg PO BID polyethylene glycol 3350 (Miralax) 17 grams PO DAILY simethicone (Gas Relief (simethicone)) 80 mg PO TID-QID PRN sucralfate 1 g PO BEDTIME Tobacco use date assessed: 03/06/24 Dental Screening Dental Screen Date: 03/06/24 Did you have a dental visit in the last 12 months?: Yes Did you have a dental problem in the last 6 months where you did not have access to dental care?: No Was dental information given to patient?: Patient has dentist HPI HPI Comments History of Present Illness Details This is a 63-year-old female that comes for her physical exam. She has mild recurrent major depression stable with escitalopram. Last mammogram was December 2023 and was normal. Last Pap smear was 2018. Had Cologuard in 2022 which was negative. Bone density done in June 2023 showing osteopenia and I added calcium. Denies any chest pain or shortness of breath. She is obese with a BMI of 37.5 and was advised to do diet and exercise to reach BMI goal less than 30. Blood pressure elevated today and will be recheck in 3 weeks by nurse navigator. I will start her on losartan. [facility] Medical History (Updated 03/06/24 @ 09:46 by Jeni Rajan MD) Injury of left rotator cuff Anxiety Depression GERD (gastroesophageal reflux disease) Helicobacter pylori (H. pylori) Osteoarthritis Essential (primary) hypertension BPPV (benign paroxysmal positional vertigo) Surgical History (Updated 03/06/24 @ 09:38 by Jeni Rajan MD) H/O unilateral oophorectomy Hx of shoulder surgery Hx of colonoscopy Family History Father Alcoholism Substance use disorder Mother Arthritis Brother Colon cancer, Onset Age: 55 Social History Housing: Apartment Alcohol intake: never Patient Tobacco Use Status: Never used Tobacco e-Cigarette/Vaping Use: Never Used Second Hand Smoke Exposure: No service: No Current occupational status: disabled Current occupation: rt hand Sexual orientation: Straight/Heterosexual Gender identity: Female Cognitive needs: No Hearing needs: No Vision needs: Yes (glasses) Questionnaire PHQ-9 Over the last 2 weeks, how often have you been bothered by any of the following problems? 1. Little interest or pleasure in doing things: more than half the days 2. Feeling down, depressed, or hopeless: several days 3. Trouble falling or staying asleep, or sleeping too much: several days 4. Feeling tired or having little energy: several days 5. Poor appetite or overeating: several days 6. Feeling bad about yourself - or that you are a failure or have let yourself or your family down: not at all 7. Trouble concentrating on things, such as reading the newspaper or watching television: not at all 8. Moving or speaking so slowly that other people could have noticed. Or the opposite - being so fidgety or restless that you have been moving around a lot more than usual: not at all 9. Thoughts that you would be better off or of hurting yourself in some way: not at all Total score: 6 Depression Screening Interpretation: Positive Depression Screening Follow-up: Existing condition, In treatment and Follow-up Visit Requested Depression Screening Done: Yes 24494 - PHQ-9 Billing: Yes Source: Developed by Drs. Jun Vasques, Rima Vázquez, Christiano Olivier and colleagues, with an educational tawanna from [employer]. Thrive Questionnaire Date Thrive assessed: 03/06/24 I am a: Patient What is your living situation today?: I have a steady place to live Within the past 12 months, did the food you bought not last and you didn't have the money to get more?: Never true Within the past 12 months, did you worry whether your food would run out before you got money to buy more?: Never true Do you have trouble paying for medicines?: No Do you have trouble getting transportation to medical appointments?: No Do you have trouble paying your heating and electricity bill?: No Do you have trouble taking care of your child, family member or friend?: No Do you have trouble with day-to-day activities such as bathing, preparing meals, shopping, managing finances, etc.?: No Are you currently unemployed and looking for a job?: No Are you interested in more education?: No Please select the resources that you would like help with: None Currently or been in a relationship where the following occur: no concerns reported THRIVE Score: 0 AUDIT C Alcohol Use Questionnaire (AUDIT-C) 1. How often do you have a drink containing alcohol?: Never Total Score: 0 Score Reviewed/Action Taken: No PARIS-7 AMB Questionnaire PARIS-7 Date PARIS - 7 assessed: 03/06/24 Feeling nervous, anxious, or on edge: 0 = Not at all Not being able to stop or control worryin = Not at all Worrying too much about different things: 1 = Several days Trouble relaxin = Not at all Being so restless that it is hard to sit still: 0 = Not at all Becoming easily annoyed or irritable: 0 = Not at all Feeling afraid as if something awful might happen: 0 = Not at all Total PARIS-7 score (0-4 normal; 5-9 mild; 10-14 moderate; 15-21 severe): 1 Source: Developed by Drs. Jun Vasques, Rima Vázquez, Christiano Olivier and colleagues, with an educational tawanna from [employer]. PARIS-7 Assessment Billing PARIS-7 Assessment Tool: PARIS-7 Assessment 96329 Review of Systems Const All systems reviewed & are unremarkable except as noted in HPI and below Eyes Reports no additional complaints, Denies change in vision and Denies other visual disturbances Card Denies chest pain at rest, Denies chest pain with activity, Denies edema, Denies irregular heart rhythm, Denies claudication, Denies dyspnea, Denies dyspnea on exertion, Denies orthopnea, Denies paroxysmal nocturnal dyspnea and Denies slow heart rate Resp Denies cough, Denies dyspnea and Denies dyspnea on exertion Physical exam (Primary Care) Vital Signs: Last Vital Signs BP 170/100 H 03/06/24 09:22 BMI result Body Mass Index 37.5 Tobacco/Smoking Status: Tobacco use Status Tobacco use date assessed 03/06/24 03/06/24 09:28 Patient Tobacco Use Status Never used Tobacco 03/06/24 09:21 e-Cigarette/Vaping Use Never Used 03/06/24 09:21 PHQ-9: PHQ-9 Score PHQ-9: Total score 6 03/06/24 09:28 Depression Screening Interpretation: Positive Depression Screening Follow-up: Existing condition, In treatment and Follow-up Visit Requested Thrive Assessment: Date of Thrive Assessment Date Thrive assessed 03/06/24 03/06/24 09:28 Currently or been in a relationship where the following occur: no concerns reported Const Orientation/consciousness: patient oriented x3 HENMT Head: Yes normal to inspection, Yes normocephalic and Yes atraumatic Ears: external ears normal Eyes General: appearance normal, both eyes and all related structures Eyelids: Yes eyelids normal Conjunctivae: conjunctivae normal Neck Neck: Yes normal visual inspection and Yes supple Resp Effort & Inspection: normal respiratory effort Auscultation: clear to auscultation bilaterally Cardio Jugular venous distension: no JVD Rate: regular rate Rhythm: regular rhythm Heart sounds: S1 normal heart sound present and S2 normal heart sound present GI Inspection: Yes normal to inspection Palpation (GI): Soft to palpation and nontender Auscultation: normal bowel sounds Skin General skin exam: no rashes or lesions noted Neuro General: patient oriented x3 and no focal motor deficits Extrem General: Yes full ROM Psych Appearance: grossly normal Assessment and Plan Assessment & Plan (1) Physical exam: Code(s): Z00.00 - Encounter for general adult medical examination without abnormal findings Plan: Repeat in a year. (2) Mild recurrent major depression: Code(s): F33.0 - Major depressive disorder, recurrent, mild Plan: Continue escitalopram. Orders: Orders Lipid Panel Today Z00.00 - Encounter for general adult medical examination without abnormal findings Comprehensive [place]. Panel Fast Today Z00.00 - Encounter for general adult medical examination without abnormal findings Complete Blood Count Auto Diff Today D64.9 - Anemia, unspecified Vitamin D 25-OH Total Today E55.9 - Vitamin D deficiency, unspecified IRON PROFILE Today D64.9 - Anemia, unspecified Thyroid Stimulating Hormone Today E66.9 - Obesity, unspecified Vitamin B12 and Folate Today E53.8 - Deficiency of other specified B group vitamins Medications: New calcium carbonate 600 mg PO BID 90 days 180 tabs 1RF M85.80 - Other specified disorders of bone density and structure, unspecified site losartan 25 mg PO DAILY 90 days 90 tabs 1RF I10 - Essential (primary) hypertension Coding Level of Care Code Est Pt Prev Care 40-64y(93436) Diagnoses Physical exam Z00.00 Mild recurrent major depression F33.0 Additional Codes PARIS-7 Assessment Billing - PARIS-7 Assessment Tool: PARIS-7 Assessment 36169 ([id number]) Time Spent (min) 33
[2024-03-06 09:22] VITALS: BP 170/100; BMI 37.5
[2024-03-06 09:51] VITALS: BP 170/90
== END 2024-03-06 09:51 | disposition home or self-care (01) ==
PROVIDERS: Visit Provider Internal Medicine
DX: Z00.00 Encounter for general adult medical examination without abnormal findings (principal); F33.0 Major depressive disorder, recurrent, mild; E66.9 Obesity, unspecified; Z68.37 Body mass index [BMI] 37.0-37.9, adult
CPT/HCPCS: 99396

== ENCOUNTER 2024-03-14 13:11 | Day surgery (SDC) | payer OTHER, SELFPAY ==
--- NOTE | 2024-03-14 14:15 | PC.NURSE ---
2952 dr. prasad notified of difficulty with iv start x [address] prasad unable to do iv start at this time. pt tolerating well, reynaldo rn #20 lac
[2024-03-14 14:29] VITALS: BP 143/65; PULSE 55; RESP 18; TEMP 36.6; O2SAT 98; BMI 37.8
[2024-03-14] MEDS: Lactated Ringers 1,000 ML 50 ML IVCONT (14:45)
--- NOTE | 2024-03-14 15:06 | MHC.SHP ---
Pre-Procedural Eval Section A - 24 Hr Update-Section A only Date of Service: 03/14/24 The patient is an INPATIENT: No The patient has been examined within 24 hours of the surgical procedure. The History & Physical has been completed within 30 days and I have reviewed it.: No Section B - Complete if H&P > 30 days Chief Complaint: Epigastric pain, GERD Relevant Family History (Specify if Yes): Yes Relevant Social History: None Present Medications: see Short Stay Collaborative assessment Medical History: Significant History (Injury of left rotator cuff Anxiety Depression GERD (gastroesophageal reflux disease) Helicobacter pylori (H. pylori) Osteoarthritis Essential (primary) hypertension BPPV (benign paroxysmal positional vertigo)) History of Previous Operations: Relevant previous surgery/procedure and date(s) (Hx of shoulder surgery Hx of colonoscopy) Allergies: Allergies Allergy/AdvReac Type Severity Reaction Status Date / Time No Known Allergies Allergy Verified 03/06/24 09:32 Review of Systems Sugical H&P ROS: Negative: Constitution, Cardiovascular, Respiratory and Gastrointestinal Exam Surgical H&P Exam: Normal: Heart, Normal: Lungs, Normal: Extremities and Normal: Abdomen Plan Diagnosis/Plan: Unchanged I have reviewed the history and physical and performed a pertinent physical examination on my patient. No changes have occurred unless specified. Time Spent With Patient Time: Total time managing care of this patient today ____ minutes.
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
--- NOTE | 2024-03-14 15:15 | W.PM.OPN ---
Operative Note Operative Note Date of Service: 03/14/24 Narrative: FLEXIBLE TRANSORAL UPPER GASTROINTESTINAL ENDOSCOPY WITH BIOPSIES Pre-op diagnosis: GERD, Epigastric pain, Post-op diagnosis: Gastric polyp, Gastritis, Endoscopist:? Azam Stallings MD Anesthesia:?MAC UPPER ENDOSCOPY Consent: Indications for the procedure and potential complications of bleeding, perforation, reaction to medications and missed diagnosis were discussed with the patient and informed consent was obtained. Instrument: Olympus GIF H 190 mid size upper endoscope Monitoring: Vital signs and clinical assessment, continuous EKG monitoring, Pulse oximetry, Carbon Dioxide monitoring and blood pressure monitoring were done throughout the procedure. Procedure: The patient was placed in the left lateral decubitis position and pre-procedure medications were administered and a bite block was placed. The endoscope was inserted into the mouth and advanced under direct vision to the third part of duodenum. A careful inspection was made as the upper endoscope was withdrawn including a retroflexed examination of the proximal stomach; Findings and interventions are described below. Findings: Larynx: Normal Esophagus: GE junction at 35 cms. No esophagitis or Herrmann's. Stomach: A 3-4 mm benign appearing polyp in the gastric body - biopsied. Mild gastric erythema - biopsies were obtained from the antrum to check for Helicobacter pylori. Grade 2 flap valve on retroflexed examination of the cardia. Duodenum: Normal bulb and descending duodenum. Biopsies were obtained from 3rd part of the duodenum to check for celiac sprue Intervention: Biopsies as noted above Impression and Post Procedure Diagnosis: Endoscopy Findings: STOMACH: Gastric polyp - biopsied Moderate diffuse gastric erythema - biopsies were obtained from the antrum. DUODENUM: Normal - biopsied to check for celiac sprue Plan: Pt has a FU appointment on 03/17/24 with Melanie Perez NP. Pt is due for a screening colon (FH of colon cancer in a brother at age 55 yrs) She reports having a colonoscopy several yrs ago. If abdominal pain persists, consider further evaluation with abdominal US if biopsies are negative. Above findings were reviewed with the patient and relevant handouts were given and the discharge area.
[2024-03-14 15:36] VITALS: BP 104/59; PULSE 71; RESP 16; TEMP 36.1; O2SAT 99
[2024-03-14 15:51] VITALS: BP 149/83; PULSE 58; RESP 16; TEMP 36.1; O2SAT 98
== END 2024-03-14 16:01 | disposition home or self-care (01) ==
PROVIDERS: PCP Internal Medicine; Visit Provider Internal Medicine Gastroenterology
PROC: 0DJ08ZZ Inspection of Upper Intestinal Tract, Via Natural or Artificial Opening Endoscopic (ICD-10-PCS; CPT 43235; principal; 2024-03-14 14:50)
DX: K21.9 Gastro-esophageal reflux disease without esophagitis (principal); K29.50 Unspecified chronic gastritis without bleeding; Z86.19 Personal history of other infectious and parasitic diseases; K31.7 Polyp of stomach and duodenum; I10 Essential (primary) hypertension; F32.A Depression, unspecified; F41.9 Anxiety disorder, unspecified; H81.10 Benign paroxysmal vertigo, unspecified ear; Z79.899 Other long term (current) drug therapy
CPT/HCPCS: 43239; 88305; 88313; 88342; J2704

== ENCOUNTER → 2024-03-14 13:11 | Outpatient (BNV) | payer OTHER, SELFPAY | PROVIDERS: PCP Internal Medicine; Visit Provider Internal Medicine Gastroenterology | DX: K21.9 Gastro-esophageal reflux disease without esophagitis (principal); K29.70 Gastritis, unspecified, without bleeding; K31.7 Polyp of stomach and duodenum | CPT/HCPCS: 43239 ==

== ENCOUNTER 2024-03-17 12:43 | Outpatient (AMB) | payer OTHER, SELFPAY ==
--- NOTE | 2024-03-17 12:57 | A.OFFVIS_ITS ---
Vital Signs 03/17/24 12:58 Height 5 ft Weight 187 lb 6.287 oz BMI 36.6 BP 167/68 H Blood Pressure Location Lt brachial Position Sitting Pulse 66 Pulse Source Pulse Oximeter Intake Visit Reasons: pt r/s appointment from 02/03 Intake Note: Pt presents to the office today for bloating/GERD. Pt states she is still having some issues with GERD especially at night after she eats. Allergies No Known Allergies Allergy (Verified 03/17/24 12:59) HPI HPI pt r/s appointment from 02/03: Details: LAST VISIT Chronic GERD Bloating Postprandial abdominal bloating Postprandial epigastric pain History of Helicobacter pylori infection Plan Patient reports epigastric pain postprandially, denies any nausea or vomiting. Will change PPI to Nexium in the morning. Patient will take sucralfate at bedtime. Discussed with patient avoiding dietary triggers and late night snacking. Staying upright for minimum 3 hours after meals discussed with patient. Will send her to check liver profile, lipase, will check for H pylori. Will treat patient empirically if positive. Patient will be send for upper endoscopy to check for H pylori, gastric or peptic ulcers, gastritis, esophagitis, duodenitis. I will see patient after the procedure, sooner on as needed basis. Patient will call the office if she will continue to have epigastric discomfort despite shins in the treatment and changing her diet. She is agreeable to current plan and verbalizes understanding of instructions. She was given the opportunity to ask questions and all questions answered. ? Thank you for allowing me to participate in her care Orders Orders Lipase Today R10.9 Liver Panel Today R74.01 H pylori Ag Stool Today K21.9 Medications New esomeprazole magnesium (Nexium) 40 mg PO DAILY 30 caps 5RF K21.9 sucralfate 1 g PO BEDTIME 30 tabs 4RF R19.7 Discontinued sennosides (Natural Senna Laxative) Discontinued Reason: Patient no longer taking 17.2 mg (2 x 8.6 mg) PO BEDTIME 60 tabs 1RF constipation K59.00 omeprazole Discontinued Reason: Doctor's Order 40 mg PO DAILY 90 caps 3RF K21.9 famotidine (Pepcid) Discontinued Reason: Doctor's Order 20 mg PO BEDTIME PRN 30 tabs 3RF acid reflux K21.9 UPPER ENDOSCOPY: Findings: Larynx: Normal Esophagus: GE junction at 35 cms. No esophagitis or Herrmann's. Stomach: A 3-4 mm benign appearing polyp in the gastric body - biopsied. Mild gastric erythema - biopsies were obtained from the antrum to check for Helicobacter pylori. Grade 2 flap valve on retroflexed examination of the cardia. Duodenum: Normal bulb and descending duodenum. Biopsies were obtained from 3rd part of the duodenum to check for celiac sprue Intervention: Biopsies as noted above Impression and Post Procedure Diagnosis: Endoscopy Findings: STOMACH: Gastric polyp - biopsied Moderate diffuse gastric erythema - biopsies were obtained from the antrum. DUODENUM: Normal - biopsied to check for celiac sprue Plan: Pt is due for a screening colon (FH of colon cancer in a brother at age 55 yrs) She reports having a colonoscopy several yrs ago. TODAY'S VISIT : Patient is here today for follow-up and to discuss upper endoscopy results. Biopsy results are not back yet. Patient just had the procedure few days ago. Patient denies any issues with anesthesia in the past. Pharmacy did not give patient her Nexium. Patient continues to have a postprandial epigastric pain as well as reflux. Patient denies any nausea or vomiting. Occasional dyspepsia without dysphagia or odynophagia. Patient is able to move her bowels when she takes her MiraLax daily. Patient reports that her brother is dying of stage IV CRC. We did Cologuard in 2021 which was negative per patient's request as she did not want to go for another colonoscopy, however we did discuss this today that patient should get colonoscopy. PFSH Medical History Injury of left rotator cuff Anxiety Depression GERD (gastroesophageal reflux disease) Helicobacter pylori (H. pylori) Osteoarthritis Essential (primary) hypertension BPPV (benign paroxysmal positional vertigo) Surgical History H/O unilateral oophorectomy Hx of shoulder surgery Hx of colonoscopy Family History Father Alcoholism Substance use disorder Mother Arthritis Brother Colon cancer, Onset Age: 55 Social History Housing: Apartment Alcohol intake: never Patient Tobacco Use Status: Never used Tobacco e-Cigarette/Vaping Use: Never Used Second Hand Smoke Exposure: No service: No Current occupational status: disabled Current occupation: rt hand Sexual orientation: Straight/Heterosexual Gender identity: Female Cognitive needs: No Hearing needs: No Vision needs: Yes (glasses) Review of Systems Const Denies weight gain and Denies weight loss ENT Reports no additional complaints, Denies dysphagia and Denies odynophagia Card Reports no additional complaints Resp Reports no additional complaints GI Denies abdominal pain, Denies belching, Denies melena, Denies bloating, Denies change in bowel habits, Denies dysphagia, Denies excessive flatus, Denies dyspepsia, Denies heartburn, Denies diarrhea, Denies loose stools, Denies nausea, Denies odynophagia and Denies vomiting Musc Reports no additional complaints Neuro Reports no additional complaints Psych Reports no additional complaints Endo Reports no additional complaints Physical Exam Vital Signs: Last Vital Signs Pulse 66 03/17/24 12:58 BP 167/68 H 03/17/24 12:58 BMI result Body Mass Index 36.6 Const General: healthy appearing and no acute distress Nutritional Appearance: obese Orientation/consciousness: patient oriented x3 Resp Effort & Inspection: normal respiratory effort, able to speak in complete sentences, no tracheal deviation and symmetric chest movement Auscultation: clear to auscultation bilaterally Cardio Rate: regular rate GI Inspection: Yes normal to inspection, No distended and Yes obesity Palpation (GI): Soft to palpation, not firm, nontender and No hepatosplenomegaly present Auscultation: normal bowel sounds General: Yes no CVA tenderness Back/Spine/Pelvis Back: no CVA tenderness Skin General skin exam: elasticity normal, turgor normal and dry skin Neuro General: patient oriented x3 Psych Appearance: grossly normal Mental Status: mental status grossly normal Assessment & Plan Assessment & Plan (1) Chronic GERD: Code(s): K21.9 - Gastro-esophageal reflux disease without esophagitis Category: Medical (2) Bloating: Code(s): R14.0 - Abdominal distension (gaseous) Category: Medical (3) Postprandial abdominal bloating: Code(s): R14.0 - Abdominal distension (gaseous) (4) Postprandial epigastric pain: Code(s): R10.13 - Epigastric pain (5) History of Helicobacter pylori infection: Code(s): Z86.19 - Personal history of other infectious and parasitic diseases Plan Awaiting biopsy results, will treat empirically if H pylori positive. Patient will start taking Nexium in the morning and continue sucralfate at bedtime. Continue avoiding dietary triggers and late night snacking. Staying upright for minimal 3 hours after meals discussed with patient. Continue MiraLax daily. Patient will follow-up in 2 months. Will schedule her for colonoscopy today as we are booking into June/July. Patient is agreeable to this plan and verbalizes understanding of instructions. She was given the opportunity to ask questions and all questions answered. Thank you for allowing me to participate in her care Medications: Refilled esomeprazole magnesium (Nexium) 40 mg PO DAILY 30 caps 5RF K21.9 - Gastro- esophageal reflux disease without esophagitis
[2024-03-17 12:58] VITALS: BP 167/68; PULSE 66; BMI 36.6
== END 2024-03-17 14:24 | disposition home or self-care (01) ==
LOC: HO.HGI 12:43
PROVIDERS: PCP Internal Medicine; Visit Provider Nurse Practitioner Family
DX: K21.9 Gastro-esophageal reflux disease without esophagitis (principal); R14.0 Abdominal distension (gaseous); R10.13 Epigastric pain; Z86.19 Personal history of other infectious and parasitic diseases
CPT/HCPCS: 99213

== ENCOUNTER → 2024-03-17 12:43 | Outpatient (BNVA) | payer OTHER, SELFPAY | PROVIDERS: PCP Internal Medicine; Visit Provider Nurse Practitioner Family | DX: K21.9 Gastro-esophageal reflux disease without esophagitis (principal); R14.0 Abdominal distension (gaseous); R10.13 Epigastric pain; Z86.19 Personal history of other infectious and parasitic diseases | CPT/HCPCS: 99212 ==

== ENCOUNTER 2024-04-15 09:39 | Outpatient (AMB) | payer OTHER, SELFPAY ==
[2024-04-15 09:56] VITALS: BMI 36.5
--- NOTE | 2024-04-15 09:56 | A.OFFVIS_ITS ---
Vital Signs 04/15/24 09:56 Height 5 ft Weight 187 lb BMI 36.5 Intake Visit Reasons: OV-Lt Shld 11/16/23 DR-follow up Intake Note: Wendi is a 63 year old female who presents for a follow up s/p Left shoulder on 11/16/2023 DR. The patient reports mild intermittent discomfort in her left shoulder. She denies any fevers or chills. She states that her discomfort has improved significantly when compared to prior to her surgery. She continues with her home stretching program. Allergies No Known Allergies Allergy (Verified 04/15/24 10:05) Medication List - Last Reconciled 04/15/24 by Arvind Lamb MD calcium carbonate 600 mg PO BID 90 days diclofenac sodium 75 mg PO BID ergocalciferol (vitamin D2) 1,250 mcg PO QWEEK escitalopram oxalate 10 mg PO DAILY esomeprazole magnesium (Nexium) 40 mg PO DAILY gabapentin 300 mg PO BID losartan 25 mg PO DAILY 90 days metoprolol tartrate 50 mg PO BID polyethylene glycol 3350 (Miralax) 17 grams PO DAILY simethicone (Gas Relief (simethicone)) 80 mg PO TID-QID PRN sucralfate 1 g PO BEDTIME PFSH Medical History Injury of left rotator cuff Anxiety Depression GERD (gastroesophageal reflux disease) Helicobacter pylori (H. pylori) Osteoarthritis Essential (primary) hypertension BPPV (benign paroxysmal positional vertigo) Surgical History H/O unilateral oophorectomy Hx of shoulder surgery Hx of colonoscopy Family History Father Alcoholism Substance use disorder Mother Arthritis Brother Colon cancer, Onset Age: 55 Social History Housing: Apartment Alcohol intake: never Patient Tobacco Use Status: Never used Tobacco e-Cigarette/Vaping Use: Never Used Second Hand Smoke Exposure: No service: No Current occupational status: disabled Current occupation: rt hand Sexual orientation: Straight/Heterosexual Gender identity: Female Cognitive needs: No Hearing needs: No Vision needs: Yes (glasses) Physical Exam Vital Signs: BMI result Body Mass Index 36.5 Const Other: Well-nourished well-developed very friendly female awake alert and oriented x3 in no acute distress Extrem Other: Bilateral upper extremity examination shows good capillary refill, no skin lesions noted, normal sensation light touch Left shoulder examination shows almost full range of motion when compared to her right shoulder, 5/5 strength with supraspinatus testing, minimal discomfort with resisted forward flexion, no instability Assessment & Plan Assessment & Plan (1) Left shoulder pain: Code(s): M25.512 - Pain in left shoulder Category: Medical Plan Ms. Herrera continues to do well after undergoing left shoulder arthroscopic surgery on 11/16/2023. She does have residual discomfort due to rotator cuff tendinosis. Had a lengthy discussion with the patient regarding the treatment options. At this point the patient's symptoms are tolerable to her. She will continue with her home stretching program. The do's and don'ts of lifting were discussed at length with the patient. She will follow up with me on an as- needed basis should her symptoms worsen in any way. Feel free to call me at any time should questions regarding her orthopedic management arise. I spent 20 minutes in reviewing the patient's records and imaging studies, seeing the patient and documenting in the medical record. Coding Level of Care Code Est Pt Level 3 (00608) Diagnoses Left shoulder pain M25.512
== END 2024-04-15 10:22 | disposition home or self-care (01) ==
PROVIDERS: PCP Internal Medicine; Visit Provider Orthopaedic Surgery
DX: M25.512 Pain in left shoulder (principal)
CPT/HCPCS: 99213

== ENCOUNTER → 2024-04-15 09:39 | Outpatient (BNVA) | payer OTHER, SELFPAY | PROVIDERS: PCP Internal Medicine; Visit Provider Orthopaedic Surgery | DX: M25.512 Pain in left shoulder (principal) | CPT/HCPCS: 99212 ==

== ENCOUNTER 2024-06-30 09:54 | Outpatient (AMB) | payer OTHER, SELFPAY ==
--- NOTE | 2024-06-30 10:01 | A.OFFVIS_ITS ---
Vital Signs 06/30/24 10:03 Height 5 ft Weight 184 lb BMI 35.9 BP 145/69 H Blood Pressure Location Lt brachial Position Sitting Pulse 80 Intake Visit Reasons: discuss colo prep Intake Note: Patient follow up for colonoscopy prep discuss Patient denies any GI issues. 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 Patient will start taking Nexium in the morning and continue sucralfate at bedtime. Continue avoiding dietary triggers and late night snacking. Staying upright for minimal 3 hours after meals discussed with patient. Continue MiraLax daily. Patient will follow-up in 2 months. Will schedule her for colonoscopy today as we are booking into . Patient is agreeable to this plan and verbalizes understanding of instructions. She was given the opportunity to ask questions and all questions answered. ? Thank you for allowing me to participate in her care Medications Refilled esomeprazole magnesium (Nexium) 40 mg PO DAILY 30 caps 5RF K21.9 TODAY'S VISIT Patient is here today for follow-up and to discuss going for colonoscopy. Patient denies any issues with anesthesia in the past. No history of sleep apnea. Patient is not on any anticoagulation medication. Patient had upper endoscopy in February no H pylori found. Patient reports that she is doing well with omeprazole and only takes sucralfate on as-needed basis at bedtime. Patient reports that she is moving her bowels better now that she takes MiraLax daily. Occasional use of simethicone depending on what she eats for postprandial bloating. Patient denies melena, hematochezia. History of colonoscopy in the past. Patient states that she had to colonoscopy. Family history of CRC. Patient's brother was diagnosed with CRC at age 55. [facility] Medical History Injury of left rotator cuff Anxiety Depression GERD (gastroesophageal reflux disease) Helicobacter pylori (H. pylori) Osteoarthritis Essential (primary) hypertension BPPV (benign paroxysmal positional vertigo) Surgical History (Updated 06/30/24 @ 10:02 by Bibi Guo) H/O unilateral oophorectomy Hx of shoulder surgery Hx of colonoscopy Family History Father Alcoholism Substance use disorder Mother Arthritis Brother Colon cancer, Onset Age: 55 Social History Housing: Apartment Alcohol intake: never Patient Tobacco Use Status: Never used Tobacco e-Cigarette/Vaping Use: Never Used Second Hand Smoke Exposure: No service: No Current occupational status: disabled Current occupation: rt hand Sexual orientation: Straight/Heterosexual Gender identity: Female Cognitive needs: No Hearing needs: No Vision needs: Yes (glasses) Review of Systems Const Denies weight gain and Denies weight loss ENT Reports no additional complaints, Denies dysphagia and Denies odynophagia Card Reports no additional complaints Resp Reports no additional complaints GI Denies abdominal pain, Denies belching, Denies melena, Denies bloating, Denies change in bowel habits, Denies dysphagia, Denies excessive flatus, Denies dyspepsia, Denies heartburn, Denies diarrhea, Denies loose stools, Denies nausea, Denies odynophagia and Denies vomiting Musc Reports no additional complaints Neuro Reports no additional complaints Psych Reports no additional complaints Endo Reports no additional complaints Physical Exam Vital Signs: Last Vital Signs Pulse 80 06/30/24 10:03 BP 145/69 H 06/30/24 10:03 BMI result Body Mass Index 35.9 Const General: healthy appearing and no acute distress Nutritional Appearance: obese Orientation/consciousness: patient oriented x3 Resp Effort & Inspection: normal respiratory effort, able to speak in complete sentences, no tracheal deviation and symmetric chest movement Auscultation: clear to auscultation bilaterally Cardio Rate: regular rate GI Inspection: Yes normal to inspection, No distended and Yes obesity Palpation (GI): Soft to palpation, not firm, nontender and No hepatosplenomegaly present Auscultation: normal bowel sounds General: Yes no CVA tenderness Back/Spine/Pelvis Back: no CVA tenderness Skin General skin exam: elasticity normal, turgor normal and dry skin Neuro General: patient oriented x3 Psych Appearance: grossly normal Mental Status: mental status grossly normal Assessment & Plan Assessment & Plan (1) Chronic GERD: Code(s): K21.9 - Gastro-esophageal reflux disease without esophagitis Category: Medical (2) Screen for colon cancer: Code(s): Z12.11 - Encounter for screening for malignant neoplasm of colon (3) Constipation: Code(s): K59.00 - Constipation, unspecified Qualifiers: Constipation type: slow transit constipation Qualified Code(s): K59.01 - Slow transit constipation Plan Patient will continue omeprazole and use sucralfate on as-needed basis. Discussed with patient avoiding dietary triggers and late night snacking. Staying upright for minimum 3 hours after meals discussed with patient. Discussed with patient low FODMAP diet and list of food recommended as well as list of food to avoid given to patient. What to expect before colonoscopy discussed with patient. The importance of clear liquid diet as well as good bowel prep stressed with patient. I will see her after the procedure, sooner on as needed basis. She is agreeable to this plan and verbalizes understanding of instructions. She was given the opportunity to ask questions and all questions answered. Thank you for allowing me to participate in her care Medications: New bisacodyl (Dulcolax (bisacodyl)) take 4 tabs at noon the day before your colonoscopy 20 mg (4 x 5 mg) PO ONCE 1 day 4 tabs 0RF Z12.11 - Encounter for screening for malignant neoplasm of colon polyethylene glycol 3350 (Miralax) As directed by gastroenterology department at [facility] 238 grams PO ONCE 238 grams 0RF Z12.11 - Encounter for screening for malignant neoplasm of colon Refilled polyethylene glycol 3350 (Miralax) 17 grams PO DAILY 510 grams 2RF simethicone (Gas Relief (simethicone)) 80 mg PO TID-QID PRN 120 tabs 4RF abdominal distention Coding Level of Care Code Est Pt Level 3 (41408) Diagnoses Chronic GERD K21.9 Screen for colon cancer Z12.11 Slow transit constipation K59.01 Constipation type: slow transit constipation Time Spent (min) 25 Comment 15 minutes spent with patient and additional 10 minutes spent reviewing her records
[2024-06-30 10:03] VITALS: BP 145/69; PULSE 80; BMI 35.9
== END 2024-06-30 10:44 | disposition home or self-care (01) ==
PROVIDERS: PCP Internal Medicine; Visit Provider Nurse Practitioner Family
DX: K21.9 Gastro-esophageal reflux disease without esophagitis (principal); Z12.11 Encounter for screening for malignant neoplasm of colon; K59.01 Slow transit constipation
CPT/HCPCS: 99213

== ENCOUNTER → 2024-06-30 09:54 | Outpatient (BNVA) | payer OTHER, SELFPAY | PROVIDERS: PCP Internal Medicine; Visit Provider Nurse Practitioner Family | DX: Z01.818 Encounter for other preprocedural examination (principal); K21.9 Gastro-esophageal reflux disease without esophagitis; K59.01 Slow transit constipation | CPT/HCPCS: 99212 ==

== ENCOUNTER 2024-07-22 10:38 | Outpatient (REF) | payer OTHER, SELFPAY ==
[2024-07-22 10:47] LABS: MANUAL DIFF FLAG NO
[2024-07-22 11:20] LABS: Basophils Percent Auto 0.6 % (0-2); Eosinophils Absolute Auto 0.1 X10*3/uL (0.0-0.4); Eosinophils Percent Auto 2.6 % (0-4); Hemoglobin 11.5 g/dl (12.0-16.0); Imm Gran Abs Auto 0.01 X10*3/uL (0.00-0.03); Imm Gran Pct Auto 0.2 % (0.0-0.4); Lymphocytes Absolute Auto 2.2 X10*3/uL (1.2-4.9); Lymphocytes Percent Auto 41.2 % (20-40); Mean Corpuscular HGB Conc 31.9 g/dl (31.0-35.0); Mean Corpuscular Hemoglobin 26.9 pg (27.0-33.0); Mean Corpuscular Volume 84.3 fL (80.0-98.0); Mean Platelet Volume 9.7 fL (9.4-12.3); Monocytes Absolute Auto 0.3 X10*3/uL (0.1-1.2); Monocytes Percent Auto 6.4 % (2-11); Neutrophils Absolute Auto 2.6 x10*3/uL (2.0-8.3); Platelet Count 287 X10*3/uL (160-400); Red Blood Count 4.27 X10*6/uL (4.20-5.50); Red Cell Distribution Width 16.2 % (11.0-16.0); White Blood Count 5.3 X10*3/uL (4.8-10.8)
[2024-07-22 12:09] LABS: Alanine Aminotransferase 16 U/L (0-31); Albumin Level 4.1 g/dL (3.5-5.0); Alkaline Phosphatase 78 U/L (39-117); Anion Gap 10 (12-20); Aspartate Amino Transferase 21 U/L (5-31); Bilirubin Total 0.4 mg/dL (0.0-1.0); Blood Urea Nitrogen 16 mg/dL (9-16); Calcium 8.8 mg/dL (8.4-10.2); Carbon Dioxide 26 mmol/L (22-29); Chloride 109 mmol/L (96-108); Cholesterol 193 mg/dL (<200); Estimated Glomerular Filt Rate > 60; Glucose Fasting 90 mg/dL (60-99); HDL Cholesterol 64 mg/dL (>40); Iron 40 mcg/dL (30-160); LDL Cholesterol Calculated 107 mg/dL (<100); Percent Iron Saturation 12 % (15-50); Potassium 3.7 mmol/L (3.3-5.1); Sodium 141 mmol/L (135-145); Total Iron Binding Capacity 343 mcg/dL (228-428); Total Protein 6.8 g/dL (6.5-8.0); Triglycerides 111 mg/dL (<150); Unsaturated Iron Binding 303 ug/dL
[2024-07-22 12:25] LABS: Thyroid Stimulating Hormone 0.61 uIU/mL (0.32-4.0); Vitamin D 25-OH Total 44.9 ng/mL (>30)
[2024-07-22 12:38] LABS: Folate 10.4 ng/mL (> or = 4.0); Vitamin B12 275 pg/mL (200-900)
== END 2024-07-22 10:39 | disposition home or self-care (01) ==
LOC: HO.LAB 10:38
PROVIDERS: PCP Internal Medicine; Visit Provider Internal Medicine
DX: Z00.00 Encounter for general adult medical examination without abnormal findings (principal); D64.9 Anemia, unspecified; E66.9 Obesity, unspecified; E55.9 Vitamin D deficiency, unspecified; E53.8 Deficiency of other specified B group vitamins
CPT/HCPCS: 36415; 80053; 80061; 82306; 82607; 82746; 83540; 84443; 85025

== ENCOUNTER 2024-07-24 09:58 | Outpatient (AMB) | payer OTHER, SELFPAY ==
--- NOTE | 2024-07-24 10:03 | A.OFFPC_ITS ---
Vital Signs 07/24/24 10:04 07/24/24 11:59 Height 5 ft Weight 183 lb BMI 35.7 BP 146/90 H 150/90 H Blood Pressure Location Lt brachial Lt brachial Position Sitting Sitting Intake Visit Reasons: bp Intake Note: Patient here for a follow up BP Shipping Lead Required: No Accompanied by: Self / Same As Patient Allergies No Known Allergies Allergy (Verified 07/24/24 10:14) Medication List - Last Reconciled 07/24/24 by Jeni Rajan MD bisacodyl (Dulcolax (bisacodyl)) 20 mg (4 x 5 mg) PO ONCE 1 day calcium carbonate 600 mg PO BID 90 days diclofenac sodium 75 mg PO BID ergocalciferol (vitamin D2) 1,250 mcg PO QWEEK escitalopram oxalate 10 mg PO DAILY gabapentin 300 mg PO BID losartan 25 mg PO DAILY 90 days metoprolol tartrate 50 mg PO BID omeprazole 40 mg PO DAILY polyethylene glycol 3350 (Miralax) 17 grams PO DAILY polyethylene glycol 3350 (Miralax) 238 grams PO ONCE simethicone (Gas Relief (simethicone)) 80 mg PO TID-QID PRN sucralfate 1 g PO BEDTIME Tobacco use date assessed: 03/06/24 Fall risk assessment: 2 + Falls in past year Last assessed Fall Risk: 07/24/24 Dental Screening Dental Screen Date: 03/06/24 HPI HPI Comments History of Present Illness Details This is a 64-year-old female with hypertension, chronic GERD and mild recurrent major depression that comes today complaining of blurry vision due to her upper eyelids being saggy. She will be referred to Ophthalmology for this matter. Blood pressure still elevated and I will increase losartan from 25 mg to 50 mg. Blood pressure will be recheck in 3 weeks by nurse navigator. GERD stable with PPIs. Depression has improved with escitalopram. [facility] Medical History (Updated 07/24/24 @ 10:43 by Jeni Rajan MD) Injury of left rotator cuff Anxiety Depression GERD (gastroesophageal reflux disease) Helicobacter pylori (H. pylori) Osteoarthritis Essential (primary) hypertension BPPV (benign paroxysmal positional vertigo) Surgical History H/O unilateral oophorectomy Hx of shoulder surgery Hx of colonoscopy Family History Father Alcoholism Substance use disorder Mother Arthritis Brother Colon cancer, Onset Age: 55 Social History Housing: Apartment Alcohol intake: never Patient Tobacco Use Status: Never used Tobacco e-Cigarette/Vaping Use: Never Used Second Hand Smoke Exposure: No service: No Current occupational status: disabled Current occupation: rt hand Sexual orientation: Straight/Heterosexual Gender identity: Female Cognitive needs: No Hearing needs: No Vision needs: Yes (glasses) Questionnaire Thrive Questionnaire Date Thrive assessed: 03/06/24 PARIS-7 AMB Questionnaire PARIS-7 Date PARIS - 7 assessed: 03/06/24 Source: Developed by Drs. Jun Vasques, Rima Vázquez, Christiano Olivier and colleagues, with an educational tawanna from [employer]. Review of Systems Const All systems reviewed & are unremarkable except as noted in HPI and below Card Denies chest pain at rest, Denies chest pain with activity, Denies edema, Denies irregular heart rhythm, Denies claudication, Denies dyspnea, Denies dyspnea on exertion, Denies orthopnea, Denies paroxysmal nocturnal dyspnea and Denies slow heart rate Resp Denies cough, Denies dyspnea and Denies dyspnea on exertion GI Denies abdominal pain, Denies change in bowel habits, Denies excessive flatus, Denies nausea and Denies vomiting Denies urinary incontinence, Denies urinary hesitancy and Denies urinary urgency Physical exam (Primary Care) Vital Signs: Last Vital Signs BP 146/90 H 07/24/24 10:04 BMI result Body Mass Index 35.7 BMI Assessment/Plan discussion: High BMI High, discussed plan: lifestyle, weight reduction, dietary and physical activity Tobacco/Smoking Status: Tobacco use Status Tobacco use date assessed 03/06/24 07/24/24 10:08 Patient Tobacco Use Status Never used Tobacco 07/24/24 10:08 e-Cigarette/Vaping Use Never Used 07/24/24 10:08 Thrive Assessment: Date of Thrive Assessment Date Thrive assessed 03/06/24 07/24/24 10:08 Resp Effort & Inspection: normal respiratory effort Auscultation: clear to auscultation bilaterally Cardio Jugular venous distension: no JVD Rate: regular rate Rhythm: regular rhythm Heart sounds: S1 normal heart sound present and S2 normal heart sound present Extrem General: Yes full ROM Assessment and Plan Assessment & Plan (1) Essential hypertension: Code(s): I10 - Essential (primary) hypertension Plan: Increase losartan to 50 mg. Blood pressure goal is equal or less than 130/80. Recheck blood pressure with nurse navigator in 3 weeks. (2) Blurry vision: Code(s): H53.8 - Other visual disturbances Plan: Referred to Ophthalmology. (3) Mild recurrent major depression: Code(s): F33.0 - Major depressive disorder, recurrent, mild Plan: Continue escitalopram. (4) Chronic GERD: Code(s): K21.9 - Gastro-esophageal reflux disease without esophagitis Plan: Continue PPIs. Orders: Referrals Ophthalmology Referral H53.8 - Other visual disturbances Medications: New losartan 50 mg PO DAILY 90 tabs 1RF 90 days Discontinued losartan Discontinued Reason: Patient Completed Course 25 mg PO DAILY 90 days 90 tabs 1RF I10 - Essential (primary) hypertension Coding Level of Care Code Est Pt Level 4 (69957) Complex EM visit Add On G2211 Diagnoses Essential hypertension I10 Blurry vision H53.8 Mild recurrent major depression F33.0 Chronic GERD K21.9 Time Spent (min) 23
[2024-07-24 10:04] VITALS: BP 146/90; BMI 35.7
[2024-07-24 11:59] VITALS: BP 150/90
== END 2024-07-24 10:24 | disposition home or self-care (01) ==
PROVIDERS: PCP Internal Medicine; Visit Provider Internal Medicine
DX: I10 Essential (primary) hypertension (principal); H53.8 Other visual disturbances; F33.0 Major depressive disorder, recurrent, mild; K21.9 Gastro-esophageal reflux disease without esophagitis
CPT/HCPCS: 99214; G2211

== ENCOUNTER 2024-08-12 13:16 | Outpatient (REF) | payer OTHER, SELFPAY ==
[2024-08-14 17:33] LABS: HPV mRNA E6/E7 Not Detected (Not Detected)
== END 2024-08-12 13:17 | disposition home or self-care (01) ==
LOC: HO.LNP 13:16
PROVIDERS: PCP Internal Medicine; Visit Provider Advanced Practice Midwife
DX: Z01.419 Encounter for gynecological examination (general) (routine) without abnormal findings (principal)
CPT/HCPCS: 87624; 88175; 99396

== ENCOUNTER 2024-08-12 13:16 | Outpatient (AMB) | payer OTHER, SELFPAY ==
--- NOTE | 2024-08-12 13:27 | A.OFFVIS_ITS ---
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 She is doing well with no concerns. Slight external discomfort she thinks from wiping. Attempting to eat a healthy diet with calcium and vitamin D and stays active with little exercise knee pain. Currently not sexually active. Denies any vaginal dryness or irritation. STI testing offered; she declines. Last pap smear; 2018, negative. Last mammogram; 2023. Colonoscopy appointment is booked. Denies any family history of breast or ovarian cancer. Family history of colon cancer-brother. [facility] Medical History Injury of left rotator cuff Anxiety Depression GERD (gastroesophageal reflux disease) Helicobacter pylori (H. pylori) Osteoarthritis Essential (primary) hypertension BPPV (benign paroxysmal positional vertigo) Surgical History H/O unilateral oophorectomy Hx of shoulder surgery Hx of colonoscopy Family History Father Alcoholism Substance use disorder Mother Arthritis Brother Colon cancer, Onset Age: 55 Social History Housing: Apartment Alcohol intake: never Patient Tobacco Use Status: Never used Tobacco e-Cigarette/Vaping Use: Never Used Second Hand Smoke Exposure: No service: No Current occupational status: disabled Current occupation: rt hand Sexual orientation: Straight/Heterosexual Gender identity: Female Cognitive needs: No Hearing needs: No Vision needs: Yes (glasses) Female Reproductive History Menstrual Total pregnancies: 3 Full term: 3 Number of Living Children: 3 Date of last pap smear: 10/06/19 (neg pap and hpv) Date of Mammogram: 01/21/24 (Birad 1) Date of last Bone Density Screenin07/20/23 Review of Systems Const All systems reviewed & are unremarkable except as noted in HPI and below Reports as per HPI Eyes Reports no additional complaints ENT Reports no additional complaints Card Reports no additional complaints Resp Reports no additional complaints GI Reports as per HPI and Reports no additional complaints Reports as per HPI Musc Reports no additional complaints Skin/Breast Reports as per HPI Neuro Reports no additional complaints Psych Reports no additional complaints Endo Reports no additional complaints Marco/Lymph Reports no additional complaints Aller/Immun Reports no additional complaints Physical Exam Vital Signs: Last Vital Signs BP 110/74 08/12/24 13:29 BMI result Body Mass Index 35.9 Const General: cooperative, healthy appearing, no acute distress, well developed and alert Orientation/consciousness: patient oriented x3 HEENT Head: Yes normal to inspection Eyes General: appearance normal, both eyes and all related structures Neck Neck: Yes normal visual inspection Thyroid: Thyroid normal Chest Chest palpation & inspection: normal inspection of the chest and other (no puckering, dimpling, peau de orange, retraction, discharge, masses) Breast/axilla inspection: normal inspection of the breasts Breast/axilla palpation: normal palpation of the breasts Resp Effort & Inspection: normal respiratory effort GI Inspection: Yes normal to inspection Palpation (GI): Soft to palpation Rectal Exam - Female: deferred General: Yes bladder normal to palpation External Female Exam: normal external appearance and normal appearance of the urethra Speculum Exam - Vagina: normal appearance of the vagina, normal palpation, normal vaginal discharge and vagina atrophic Speculum Exam - Cervix: normal appearance of the cervix and normal palpation Bimanual exam- vagina & uterus: normal bimanual exam, normal palpation, uterine size normal, bladder normal to palpation, normal palpation and non-tender Bimanual Exam- Adnexa, other: no masses Skin General skin exam: no rashes or lesions noted Rashes: no rashes Neuro General: patient oriented x3 Cognition (Neuro): normal cognition Extrem General: Yes normal to inspection Psych Attitude: cooperative Thought process: Normal thought process present Assessment & Plan Assessment & Plan (1) Encounter for well woman exam with routine gynecological exam: Code(s): Z01.419 - Encounter for gynecological examination (general) (routine) without abnormal findings Category: Medical Plan Discussed: Current recommendations for pap smears per ASCCP guidelines. Pap smear obtained. Breast awareness, periodic self breast exams and yearly mammogram. Maintain a healthy lifestyle, well balanced diet including Calcium 1,200 mg and Vitamin D 600 IU daily, and routine exercise. Skin care use of mild soap or no soap, unscented baby wipes, cotton underwear, loose clothing, no scented products, reassured skin looks healthy, normal aging changes that make the skin more sensitive, if persistent symptoms to follow up in the office. Contact the office with any postmenopausal bleeding. Patient verbalizes understanding and agrees to the plan of care. She was given opportunity to ask questions and all questions were answered to the best of my ability. RTO in 1 year for annual miller head wet process exam. This note is constructed using voice recognition software. While every effort has been made to ensure accuracy, home visitor errors may have been included. Orders: Orders PAP + HPV E6/E7 rfx 18/45 Today Z01.419 - Encounter for gynecological examination (general) (routine) without abnormal findings Coding Level of Care Code Est Pt Prev Care 40-64y(03725) Diagnoses Encounter for well woman exam with routine gynecological exam Z01.419
[2024-08-12 13:29] VITALS: BP 110/74; BMI 35.9
== END 2024-08-12 14:03 | disposition home or self-care (01) ==
PROVIDERS: PCP Internal Medicine; Visit Provider Advanced Practice Midwife
DX: Z01.419 Encounter for gynecological examination (general) (routine) without abnormal findings (principal)
CPT/HCPCS: 99396

== ENCOUNTER 2024-08-22 06:26 | Day surgery (SDC) | payer OTHER, SELFPAY ==
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
[2024-08-22] MEDS: Lactated Ringers 1,000 ML 100 ML IVCONT (07:09)
[2024-08-22 07:15] VITALS: BMI 35.3
[2024-08-22 07:16] VITALS: BP 136/71; PULSE 72; RESP 18; TEMP 36.7; O2SAT 98
--- NOTE | 2024-08-22 07:33 | MHC.SHP ---
Pre-Procedural Eval Section A - 24 Hr Update-Section A only Date of Service: 08/22/24 Section B - Complete if H&P > 30 days Chief Complaint: Screening, FH of colon cancer Relevant Family History (Specify if Yes): Yes Relevant Social History: None Present Medications: see Short Stay Collaborative assessment Medical History: Significant History (Injury of left rotator cuff Anxiety Depression GERD (gastroesophageal reflux disease) Helicobacter pylori (H. pylori) Osteoarthritis Essential (primary) hypertension BPPV (benign paroxysmal positional vertigo)) History of Previous Operations: Relevant previous surgery/procedure and date(s) (H/O unilateral oophorectomy Hx of shoulder surgery Hx of colonoscopy) Allergies: Allergies Allergy/AdvReac Type Severity Reaction Status Date / Time No Known Allergies Allergy Verified 08/22/24 07:17 Review of Systems Sugical H&P ROS: Negative: Constitution, Cardiovascular, Respiratory and Gastrointestinal Exam Surgical H&P Exam: Normal: Heart, Normal: Lungs, Normal: Extremities and Normal: Abdomen Plan Diagnosis/Plan: Unchanged I have reviewed the history and physical and performed a pertinent physical examination on my patient. No changes have occurred unless specified. Time Spent With Patient Time: Total time managing care of this patient today ____ minutes.
--- NOTE | 2024-08-22 09:15 | P.OPN-COLO_ITS ---
Colonoscopy Operative Note Operative Note Date of Service: 08/22/24 Narrative: COLONOSCOPY TILL CECUM WITH BIOPSIES AND SNARE POLYPECTOMY Pre-op diagnosis: Colon cancer screening, family history of colon cancer (brother in his 50's). Post-op diagnosis:? Colon polyps, Diverticulosis, hemorrhoids Endoscopist:? Azam Stallings MD Anesthesia:?MAC Consent: Indications for the procedure and potential complications of bleeding, perforation, reaction to medications and missed diagnosis were discussed with the patient and informed consent was obtained. Instrument: Olympus PCF H 190 L variable stiffness pediatric colonoscope Monitoring: Vital signs and clinical assessment, intermittent blood pressure monitoring, continuous EKG monitoring, Pulse oximetry and Carbon Dioxide monitoring were done throughout the procedure. Please see anesthesia flowsheet. Colon withdrawl time was 18 minutes. Procedure: The patient was placed in the left lateral decubitis position and pre-procedure medications were administered. After a digital rectal examination of the ano-rectum, the video colonoscope was inserted into the rectum and advanced through the colon to the cecum. The colonoscope was slowly withdrawn in a retrograde panoramic fashion and the colon mucosa was carefully examined including a retroflexed view of the rectum. Findings and interventions are described below. Procedure Difficulty: without difficulty Findings: Terminal Ileum: Not evaluated Cecum: A 2-3 mm sessile polyp - removed with a cold biopsy Ascending Colon: Normal Transverse Colon: Normal Descending Colon: Moderate diverticulosis Sigmoid Colon: A 7-8 mm sessile polyp - removed with a cold snare. Severe diverticulosis with luminal narrowing Rectum: Normal Ano-rectum: Moderate non-bleeding internal hemorrhoids Colon preparation: Good after some irrigation. [place] Bowel Preparation Scale Right colon; 2 Transverse colon: 2 Left colon; 2 (0 = Unprepared colon segment with mucosa not seen due to solid stool that cannot be cleared. 1 = Portion of mucosa of the colon segment seen, but other areas of the colon segment not well seen due to staining, residual stool and/or opaque liquid. 2 = Minor amount of residual staining, small fragments of stool and/or opaque liquid, but mucosa of colon segment seen well. 3 = Entire mucosa of colon segment seen well with no residual staining, small fragments of stool or opaque liquid) Impression and Post Procedure Diagnosis: Colonoscopy Findings: Two small polyps were removed Moderate to severe diverticulosis seen in the left colon Moderate hemorrhoids on retroflexed exam. Plan: Pt has a FU appointment on 09/02/24 with Melanie Perez NP Repeat Colonoscopy in 5 years if polyps are adenomatous and due to family history of colon cancer Above findings were reviewed with the patient and relevant handouts were given and the discharge area.
[2024-08-22 09:18] VITALS: BP 85/54; PULSE 88; RESP 19; TEMP 36.2; O2SAT 99
[2024-08-22 09:34] VITALS: BP 114/55; PULSE 70; RESP 16; TEMP 36.2; O2SAT 99
== END 2024-08-22 09:56 | disposition home or self-care (01) ==
PROVIDERS: PCP Internal Medicine; Visit Provider Internal Medicine Gastroenterology
PROC: 0DJD8ZZ Inspection of Lower Intestinal Tract, Via Natural or Artificial Opening Endoscopic (ICD-10-PCS; CPT 45378; principal; 2024-08-22 08:30)
DX: Z12.11 Encounter for screening for malignant neoplasm of colon (principal); Z80.0 Family history of malignant neoplasm of digestive organs; D12.0 Benign neoplasm of cecum; K63.5 Polyp of colon; K57.30 Diverticulosis of large intestine without perforation or abscess without bleeding; K64.8 Other hemorrhoids; K59.01 Slow transit constipation; K21.9 Gastro-esophageal reflux disease without esophagitis; M19.90 Unspecified osteoarthritis, unspecified site; I10 Essential (primary) hypertension; H81.10 Benign paroxysmal vertigo, unspecified ear; F32.A Depression, unspecified; F41.9 Anxiety disorder, unspecified; Z79.899 Other long term (current) drug therapy
CPT/HCPCS: 45385; 45380; 88305; J2704; J2765

== ENCOUNTER → 2024-08-22 06:26 | Outpatient (BNV) | payer OTHER, SELFPAY | PROVIDERS: PCP Internal Medicine; Visit Provider Internal Medicine Gastroenterology | DX: Z12.11 Encounter for screening for malignant neoplasm of colon (principal); Z80.0 Family history of malignant neoplasm of digestive organs; D12.0 Benign neoplasm of cecum; K63.5 Polyp of colon; K57.90 Diverticulosis of intestine, part unspecified, without perforation or abscess without bleeding; K64.8 Other hemorrhoids | CPT/HCPCS: 45380; 45385 ==

== ENCOUNTER 2024-09-02 09:32 | Outpatient (AMB) | payer OTHER, SELFPAY ==
[2024-09-02 09:38] VITALS: BP 128/86; PULSE 70; O2SAT 99; BMI 35.4
--- NOTE | 2024-09-02 09:38 | MHC.OFFVIS ---
Vital Signs 09/02/24 09:38 Height 5 ft Weight 181 lb 3.52 oz BMI 35.4 BP 128/86 Blood Pressure Location Lt brachial Position Sitting Pulse 70 Pulse Source Pulse Oximeter Pulse Oximetry (%) 99 Oxygen Delivery Method Room Air Intake Visit Reasons: s/p colon Intake Note: Wendi presents in office today for a scheduled s/p FUV. CC; Pt reports that they have been well since the procedure. No complications or new sx reported per pt. Pt is here to discuss the results of their procedure. Economics Instructor Required: No Allergies No Known Allergies Allergy (Verified 09/02/24 09:38) HPI HPI s/p colon: Details: LAST VISIT Chronic GERD Screen for colon cancer Constipation Plan Patient will continue omeprazole and use sucralfate on as-needed basis. Discussed with patient avoiding dietary triggers and late night snacking. Staying upright for minimum 3 hours after meals discussed with patient. Discussed with patient low FODMAP diet and list of food recommended as well as list of food to avoid given to patient. What to expect before colonoscopy discussed with patient. The importance of clear liquid diet as well as good bowel prep stressed with patient. I will see her after the procedure, sooner on as needed basis. She is agreeable to this plan and verbalizes understanding of instructions. She was given the opportunity to ask questions and all questions answered. ? Thank you for allowing me to participate in her care Medications New bisacodyl (Dulcolax (bisacodyl)) take 4 tabs at noon the day before your colonoscopy 20 mg (4 x 5 mg) PO ONCE 1 day 4 tabs 0RF Z12.11 polyethylene glycol 3350 (Miralax) As directed by gastroenterology department at [facility] 238 grams PO ONCE 238 grams 0RF Z12.11 Refilled polyethylene glycol 3350 (Miralax) 17 grams PO DAILY 510 grams 2RF simethicone (Gas Relief (simethicone)) 80 mg PO TID-QID PRN 120 tabs 4RF abdominal distention COLONOSCOPY: Findings: Terminal Ileum: Not evaluated Cecum: A 2-3 mm sessile polyp - removed with a cold biopsy Ascending Colon: Normal Transverse Colon: Normal Descending Colon: Moderate diverticulosis Sigmoid Colon: A 7-8 mm sessile polyp - removed with a cold snare. Severe diverticulosis with luminal narrowing Rectum: Normal Ano-rectum: Moderate non-bleeding internal hemorrhoids Colon preparation: Good after some irrigation. [place] Bowel Preparation Scale Right colon; 2 Transverse colon: 2 Left colon; 2 (0 = Unprepared colon segment with mucosa not seen due to solid stool that cannot be cleared. 1 = Portion of mucosa of the colon segment seen, but other areas of the colon segment not well seen due to staining, residual stool and/or opaque liquid. 2 = Minor amount of residual staining, small fragments of stool and/or opaque liquid, but mucosa of colon segment seen well. 3 = Entire mucosa of colon segment seen well with no residual staining, small fragments of stool or opaque liquid) Impression and Post Procedure Diagnosis: Colonoscopy Findings: Two small polyps were removed Moderate to severe diverticulosis seen in the left colon Moderate hemorrhoids on retroflexed exam. Plan: Repeat Colonoscopy in 5 years if polyps are adenomatous and due to family history of colon cancer PATHOLOGY RESULTS Diagnosis A. Colon, cecal polyp: Tubular adenoma; negative for high-grade dysplasia and carcinoma. B. Colon, sigmoid, polyp: Colonic mucosa with minimal hyperplastic changes; no adenomatous dysplasia seen TODAY'S VISIT Patient is here today for follow-up and to discuss colonoscopy results. Patient reports to be feeling well. Denies any issues with anesthesia. Patient denies any trouble with prep or any complication after the procedure. Patient reports that she is doing well. Patient changed her diet and now is moving her bowels better. Patient is starting to feel better using weight. One tubular adenoma found without high-grade dysplasia or carcinoma. Recommendation was made for patient to return in 5 years due to polyp and due to family history of CRC. Patient is following FODMAP diet and is watching what she is eating right now. Patient denies any melena, hematochezia. Symptoms of acid reflux are suppressed with PPI in the morning and sucralfate at night time. Patient denies any dyspepsia, dysphagia or odynophagia. [facility] Medical History (Updated 09/02/24 @ 10:13 by Rissa Perez, [facility]) Tubular adenoma of colon Injury of left rotator cuff Anxiety Depression GERD (gastroesophageal reflux disease) Helicobacter pylori (H. pylori) Osteoarthritis Essential (primary) hypertension BPPV (benign paroxysmal positional vertigo) Surgical History H/O unilateral oophorectomy Hx of shoulder surgery Hx of colonoscopy Family History Father Alcoholism Substance use disorder Mother Arthritis Brother Colon cancer, Onset Age: 55 Social History Housing: Apartment Are you a primary career development coordinator/teacher to a significant other at home: No Do you presently have visiting nurse or other home services: No Alcohol intake: never Patient Tobacco Use Status: Never used Tobacco e-Cigarette/Vaping Use: Never Used Second Hand Smoke Exposure: No service: No Current occupational status: disabled Current occupation: rt hand Sexual orientation: Straight/Heterosexual Gender identity: Female Cognitive needs: No Hearing needs: No Vision needs: Yes (glasses) Review of Systems Const Denies weight gain and Denies weight loss ENT Reports no additional complaints, Denies dysphagia and Denies odynophagia Card Reports no additional complaints Resp Reports no additional complaints GI Denies abdominal pain, Denies belching, Denies melena, Denies bloating, Denies change in bowel habits, Denies dysphagia, Denies excessive flatus, Denies dyspepsia, Reports heartburn, Denies diarrhea, Denies loose stools, Denies nausea, Denies odynophagia and Denies vomiting Musc Reports no additional complaints Neuro Reports no additional complaints Psych Reports no additional complaints Endo Reports no additional complaints Physical Exam Vital Signs: Last Vital Signs Pulse 70 09/02/24 09:38 BP 128/86 09/02/24 09:38 Pulse Ox 99 09/02/24 09:38 Oxygen Delivery Method Room Air 09/02/24 09:38 BMI result Body Mass Index 35.4 Const General: healthy appearing and no acute distress Nutritional Appearance: obese Orientation/consciousness: patient oriented x3 Resp Effort & Inspection: normal respiratory effort, able to speak in complete sentences, no tracheal deviation and symmetric chest movement Auscultation: clear to auscultation bilaterally Cardio Rate: regular rate GI Inspection: Yes normal to inspection, No distended and Yes obesity Palpation (GI): Soft to palpation, not firm, nontender and No hepatosplenomegaly present Auscultation: normal bowel sounds General: Yes no CVA tenderness Back/Spine/Pelvis Back: no CVA tenderness Skin General skin exam: elasticity normal, turgor normal and dry skin Neuro General: patient oriented x3 Psych Appearance: grossly normal Mental Status: mental status grossly normal Assessment & Plan Assessment & Plan (1) Chronic GERD: Code(s): K21.9 - Gastro-esophageal reflux disease without esophagitis Category: Medical (2) Tubular adenoma of colon: Code(s): D12.6 - Benign neoplasm of colon, unspecified Category: Medical (3) Constipation: Code(s): K59.00 - Constipation, unspecified Qualifiers: Constipation type: slow transit constipation Qualified Code(s): K59.01 - Slow transit constipation (4) Status post colonoscopy: Code(s): Z98.890 - Other specified postprocedural states Plan Continue current treatment with omeprazole in the morning and sucralfate at bedtime. Patient can take sucralfate on as-needed basis. Continue avoiding dietary triggers and late night snacking. Staying upright for minimum 3 hours after meals discussed with patient. Patient will return for colonoscopy in 5 years due to family history of CRC and tubular adenoma. Continue fluid intake and activity to promote better bowel motility. Patient will follow-up in our office in 6 months, sooner on as needed basis. She is agreeable to this plan and verbalizes understanding of instructions. She was given the opportunity to ask questions and all questions answered. Thank you for allowing me to participate in her care Coding Level of Care Code Est Pt Level 3 (79414) Diagnoses Chronic GERD K21.9 Tubular adenoma of colon D12.6 Slow transit constipation K59.01 Constipation type: slow transit constipation Status post colonoscopy Z98.890 Time Spent (min) 30 Comment 20 minutes spent with patient and additional 10 minutes spent reviewing her records
== END 2024-09-02 10:15 | disposition home or self-care (01) ==
PROVIDERS: PCP Internal Medicine; Visit Provider Nurse Practitioner Family
DX: K21.9 Gastro-esophageal reflux disease without esophagitis (principal); D12.6 Benign neoplasm of colon, unspecified; K59.01 Slow transit constipation; Z98.890 Other specified postprocedural states
CPT/HCPCS: 99213

== ENCOUNTER → 2024-09-02 09:32 | Outpatient (BNVA) | payer OTHER, SELFPAY | PROVIDERS: PCP Internal Medicine; Visit Provider Nurse Practitioner Family | DX: K21.9 Gastro-esophageal reflux disease without esophagitis (principal); K59.01 Slow transit constipation; D12.6 Benign neoplasm of colon, unspecified; Z98.890 Other specified postprocedural states | CPT/HCPCS: 99212 ==

== ENCOUNTER → 2025-01-02 09:05 | Outpatient (BNVA) | payer OTHER, SELFPAY | PROVIDERS: PCP Internal Medicine ==

== ENCOUNTER 2025-01-15 12:17 | Outpatient (AMB) | payer OTHER, SELFPAY ==
--- NOTE | 2025-01-15 12:36 | MHC.PC.OV ---
Vital Signs 01/15/25 12:41 Height 5 ft Weight 179 lb 8 oz BMI 35.1 BP 136/60 Blood Pressure Location Lt brachial Position Sitting Pulse 87 Pulse Source Pulse Oximeter Temp 97.3 F Temp Source Temporal Artery Scan Pulse Oximetry (%) 97 Oxygen Delivery Method Room Air Intake Visit Reasons: preop Intake Note: Patient is here for a Pre-op for Eye lid surgery scheduled with Dr Parks on 01/26/25. [facility] Required: Yes [facility] Language: Marketing Analytics Analyst Name: Jeni Raajn MD Information Interpreted: non-clinical & clinical [place]: Not Required per policy Accompanied by: Self / Same As Patient Allergies No Known Allergies Allergy (Verified 01/15/25 12:51) Medication List - Last Reconciled 01/15/25 by Jeni Rajan MD calcium carbonate 600 mg PO BID 90 days diclofenac sodium 75 mg PO BID diltiazem HCl ER 60 mg PO BID 30 days ergocalciferol (vitamin D2) 1,250 mcg PO QWEEK escitalopram oxalate 10 mg PO DAILY gabapentin 300 mg PO BID losartan 100 mg PO DAILY 90 days omeprazole 40 mg PO DAILY simethicone (Gas Relief (simethicone)) 80 mg PO TID-QID PRN sucralfate 1 g PO BEDTIME Tobacco use date assessed: 01/15/25 Fall risk assessment: No Falls in past year Last assessed Fall Risk: 01/15/25 Dental Screening Dental Screen Date: 01/15/25 Did you have a dental visit in the last 12 months?: No Did you have a dental problem in the last 6 months where you did not have access to dental care?: No Was dental information given to patient?: Patient has dentist HPI HPI Comments History of Present Illness Details The patient is a 64-year-old female presenting with bilateral ptosis requiring blepharoplasty. She reports difficulty with vision due to drooping of both upper eyelids, with the right eyelid being more affected. This condition has progressively worsened, impairing her daily activities. The planned surgical intervention is a blepharoplasty on January 26. No previous complications from past surgeries have been reported. She has 5-7 Mets of ADLs. This is a low risk surgery and she has a medium risk patient. The patient?s medical history includes hypertension, managed with losartan 100 mg, osteoarthritis for which she takes diclofenac, and gastroesophageal reflux disease managed with omeprazole. She experiences occasional stomach upset likely linked to her medication regimen but finds relief when consuming medication with food. Additionally, she suffers from anxiety and depression, managed with escitalopram 10 mg, and takes gabapentin. Her previous surgical history includes a shoulder surgery in 2022 and a colonoscopy alongside an ovarian removal procedure, with no prior surgical complications noted. The patient's cardiovascular risk is addressed with regular blood pressure monitoring, and she is planned for an electrocardiogram and fasting lab tests to evaluate her surgical fitness. ON LICENSE OF [facility] Medical History (Updated 01/15/25 @ 12:59 by Jeni Rajan MD) Tubular adenoma of colon Injury of left rotator cuff Anxiety Depression GERD (gastroesophageal reflux disease) Helicobacter pylori (H. pylori) Osteoarthritis Essential (primary) hypertension BPPV (benign paroxysmal positional vertigo) Surgical History H/O unilateral oophorectomy Hx of shoulder surgery Hx of colonoscopy Family History Father Alcoholism Substance use disorder Mother Arthritis Brother Colon cancer, Onset Age: 55 Social History Housing: Apartment Are you a primary care information associate to a significant other at home: No Do you presently have visiting nurse or other home services: No Alcohol intake: never Patient Tobacco Use Status: Never used Tobacco e-Cigarette/Vaping Use: Never Used Second Hand Smoke Exposure: No service: No Current occupational status: disabled Current occupation: rt hand Sexual orientation: Straight/Heterosexual Gender identity: Female Cognitive needs: No Hearing needs: No Vision needs: Yes (glasses) Questionnaire PHQ-9 Over the last 2 weeks, how often have you been bothered by any of the following problems? 1. Little interest or pleasure in doing things: nearly every day 2. Feeling down, depressed, or hopeless: several days 3. Trouble falling or staying asleep, or sleeping too much: several days 4. Feeling tired or having little energy: several days 5. Poor appetite or overeating: not at all 6. Feeling bad about yourself - or that you are a failure or have let yourself or your family down: not at all 7. Trouble concentrating on things, such as reading the newspaper or watching television: not at all 8. Moving or speaking so slowly that other people could have noticed. Or the opposite - being so fidgety or restless that you have been moving around a lot more than usual: several days 9. Thoughts that you would be better off or of hurting yourself in some way: not at all Total score: 7 Depression Screening Interpretation: Positive Depression Screening Follow-up: Existing condition, In treatment and Follow-up Visit Requested Depression Screening Done: Yes 22632 - PHQ-9 Billing: Yes Source: Developed by Drs. Jun Vasques, Rima Vázquez, Christiano Olivier and colleagues, with an educational tawanna from [employer]. Thrive Questionnaire Date Thrive assessed: 01/15/25 I am a: Patient What is your living situation today?: I have a steady place to live Within the past 12 months, did the food you bought not last and you didn't have the money to get more?: Never true Within the past 12 months, did you worry whether your food would run out before you got money to buy more?: Never true Do you have trouble paying for medicines?: No Do you have trouble getting transportation to medical appointments?: No Do you have trouble paying your heating and electricity bill?: No Do you have trouble taking care of your child, family member or friend?: No Do you have trouble with day-to-day activities such as bathing, preparing meals, shopping, managing finances, etc.?: No Are you currently unemployed and looking for a job?: No Are you interested in more education?: No Please select the resources that you would like help with: None Currently or been in a relationship where the following occur: No concerns reported THRIVE Score: 0 AUDIT C Alcohol Use Questionnaire (AUDIT-C) 1. How often do you have a drink containing alcohol?: Never Total Score: 0 Score Reviewed/Action Taken: No PARIS-7 AMB Questionnaire PARIS-7 Date PARIS - 7 assessed: 01/15/25 Feeling nervous, anxious, or on edge: 1 = Several days Not being able to stop or control worryin = Not at all Worrying too much about different things: 0 = Not at all Trouble relaxin = Not at all Being so restless that it is hard to sit still: 1 = Several days Becoming easily annoyed or irritable: 0 = Not at all Feeling afraid as if something awful might happen: 0 = Not at all Total PARIS-7 score (0-4 normal; 5-9 mild; 10-14 moderate; 15-21 severe): 2 Source: Developed by Drs. Jun Vasques, Rima Vázquez, Christiano Olivier and colleagues, with an educational tawanna from [employer]. PARIS-7 Assessment Billing PARIS-7 Assessment Tool: PARIS-7 Assessment 95327 Review of Systems Const All systems reviewed & are unremarkable except as noted in HPI and below Card Denies chest pain at rest, Denies chest pain with activity, Denies edema, Denies irregular heart rhythm, Denies claudication, Denies dyspnea, Denies dyspnea on exertion, Denies orthopnea, Denies paroxysmal nocturnal dyspnea and Denies slow heart rate Resp Denies cough, Denies dyspnea and Denies dyspnea on exertion Denies urinary incontinence, Denies urinary hesitancy and Denies urinary urgency Musc Denies atrophy, Denies deformity and Denies limited range of motion Skin/Breast Denies bleeding lesions, Denies changing lesions and Denies rash Physical exam (Primary Care) Vital Signs: Last Vital Signs Temp 97.3 F 01/15/25 12:41 Pulse 87 01/15/25 12:41 BP 136/60 01/15/25 12:41 Pulse Ox 97 01/15/25 12:41 Oxygen Delivery Method Room Air 01/15/25 12:41 BMI result Body Mass Index 35.1 BMI Assessment/Plan discussion: High BMI High, discussed plan: lifestyle, weight reduction, dietary and physical activity Tobacco/Smoking Status: Tobacco use Status Tobacco use date assessed 01/15/25 01/15/25 12:47 Patient Tobacco Use Status Never used Tobacco 01/15/25 12:47 e-Cigarette/Vaping Use Never Used 01/15/25 12:47 PHQ-9: PHQ-9 Score PHQ-9: Total score 7 01/15/25 12:52 Depression Screening Interpretation: Positive Depression Screening Follow-up: Existing condition, In treatment and Follow-up Visit Requested Thrive Assessment: Date of Thrive Assessment Date Thrive assessed 01/15/25 01/15/25 12:47 Currently or been in a relationship where the following occur: No concerns reported Resp Effort & Inspection: normal respiratory effort Auscultation: clear to auscultation bilaterally Cardio Jugular venous distension: no JVD Rate: regular rate Rhythm: regular rhythm Heart sounds: S1 normal heart sound present and S2 normal heart sound present Extrem General: Yes full ROM Coding Level of Care Code Est Pt Level 4 (27050) Complex EM visit Add On G2211 Diagnoses Pre-op evaluation Z01.818 Essential hypertension I10 Mild recurrent major depression F33.0 Chronic GERD K21.9 Anxiety F41.9 Additional Codes PARIS-7 Assessment Billing - PARIS-7 Assessment Tool: PARIS-7 Assessment 40718 ([id number]) PHQ-9 - 22654 - PHQ-9 Billing: Yes ([id number]) Time Spent (min) 24 Assessment & Plan Assessment & Plan (1) Pre-op evaluation: Code(s): Z01.818 - Encounter for other preprocedural examination Category: Medical (2) Essential hypertension: Code(s): I10 - Essential (primary) hypertension Category: Medical (3) Mild recurrent major depression: Code(s): F33.0 - Major depressive disorder, recurrent, mild Category: Medical (4) Chronic GERD: Code(s): K21.9 - Gastro-esophageal reflux disease without esophagitis Category: Medical (5) Anxiety: Code(s): F41.9 - Anxiety disorder, unspecified Category: Medical Plan - Conduct electrocardiogram and fasting laboratory tests prior to the scheduled surgery to assess cardiac health and blood glucose levels. - Continue current medication regimen including antihypertensives, antidepressants, and gastroprotective medications. - Encourage medication intake with meals to minimize gastrointestinal discomfort. - Schedule blepharoplasty for January 26, ensuring preoperative clearance is obtained. - Monitor blood pressure regularly to maintain control. Patient was informed and verbally consented to the use of an ambient scribe for clinic note documentation during this visit. I discussed with the patient the necessity of obtaining preoperative clearance before her blepharoplasty scheduled for January 26. We addressed her current medication regimen and emphasized maintaining antihypertensive therapy and taking medications with food to alleviate gastrointestinal side effects. The importance of completing an electrocardiogram and fasting laboratory tests to ensure she is fit for surgery was emphasized. We also discussed the surgical procedure's benefits in improving her vision and aesthetic outcome. I advised the patient on the need to complete preoperative assessments promptly to avoid any delays in the surgical schedule and to ensure comprehensive communication with the surgical center for coordination. The patient expressed understanding and agreed to follow the instructions provided. Orders: Orders ECG 12 lead EKG Today Z01.818 - Encounter for other preprocedural examination Complete Blood Count Auto Diff Today D12.6 - Benign neoplasm of colon, unspecified Vitamin D 25-OH Total Today E55.9 - Vitamin D deficiency, unspecified Lipid Panel Today E78.5 - Hyperlipidemia, unspecified Comprehensive [place]. Panel Fast Today Z01.818 - Encounter for other preprocedural examination Patient Instructions: - Schedule electrocardiogram and fasting laboratory tests as soon as possible before surgery. - Continue taking all prescribed medications as directed. - Consume medications with food to minimize stomach upset. - Contact the clinic immediately if experiencing any new symptoms or side effects. - Prepare for surgery as advised by the surgical team. - Follow up with any additional preoperative instructions provided by the surgical center.
[2025-01-15 12:41] VITALS: BP 136/60; PULSE 87; TEMP 36.3; O2SAT 97; BMI 35.1
--- OUTSIDE RECORDS SUMMARY | 2025-01-15 13:17 | XMS_ITS | Data Portability ---
Author Organization [facility] Address [address] [place] [phone] Care Team Providers Care Video Operator Name Role Phone Unavailable Tube Maker [phone] ORIN MARTINEZ Referring Provider [phone] Assessment Encounter Date Assessment Date Assessment LastModified by Organization Details LastModified Time 04/30/2019 04/30/2019 Custom Device: Is a custom device needed for this patient? NO Reasons for Custom Device: Explain Reasoning: The patient will be seen on an as needed basis. Orthosis: is in stock and delivered today. Device delivered: Prefab, OTS If Prefab, Custom Fit, explain modifications - what was done and why: If Custom device, state reasons and provide narrative: Explain Reasoning: Orthotic Goals: Choose all that apply Provide Support Immobilization Positioning Stabilize injury Promote Healing Other (please specify): dali Not available 04/30/2019 16:32:38 Plan of Treatment Reminders Order Date Submit Date Provider Last Modified By Organization Details Last Modified Time Details Appointments None record ed. Lab None record ed. Referral None record ed. Procedures None record ed. Surgeries None record ed. Imaging None record ed. Medication Orders None record ed. Patient TargetsNo targets recorded. Patient Instructions Encounter Date Encounter Id Patient Instructions Last Modified By Organization Details Last Modified Time 04/30/2019 [id number] Device provided has good fit and function. Patient {{agrees* does not agree}} with my assessment. Patient {{does* does not}} understand wear and care of device. Patient {{does* does not}} understand how to don and doff the device. Patient {{received* did not receive}} written instructions. Patient {{was* was not}} provided with my business card and agrees to call if any problems. dali Not available 04/30/2019 16:31:14 Reason for Referral None Reported. Procedures Surgical History Date Name Laterality Status Provider Name and Address Organization Details Recorded Time 9 BI Procedures completed Joel Farhan [facility] 04/30/2019 16:32:27 Imaging Results None recorded. Procedure Notes None recorded. Medical Equipment None Reported. Vitals None Recorded Social History None recorded. Functional Status None recorded. Mental Status None recorded. Family History Nothing Reported. Medical History No medical history recorded. Gynecological HistoryNo gynecological history recorded. Obstetrics History GPAL:G 0 P 0 0 0 0 Past Encounters Encounter ID Performer Location Encounter Start Date Encounter Closed Date Diagnosis/Indication Diagnosis SNOMED-CT Code Diagnosis ICD10 Code Diagnosis Note [id number] Joel Farhan [facility] [address] [place] [address] 04/30/2019 16:01:51 05/01/2019 22:48:53 Sprain of shoulder 1488068 S43.429A Health Concerns Section Related Observation LastModified by Organization Detai ls LastModified Time None Recorded Concern Status LastModified by Organization Details LastModified Time None Recorded Advance Directives Directive None Recorded Payers Encounter Date Sequence Insurance Name Policy Number Policy Bautista Covered Member ID Bautista Member ID Guarantor Name 04/30/2019 1 *SELF PAY* Kayley Herrera Notes Date Note Type Note Provider Name and Address Organization Details Recorded Time 04/30/2019 text/html BI HPIReported bypatient.Pain?locatio n(right arm); post op Skin Problemssurgical wound reported; post opNotes:Patient fit with size medium sling and pillow to right arm, post op. Patient fit in [facility] PACU Phase1, post op. ANNELISE King [facility] 04/30/2019 16:32:53 OBGyn Episode No OBEpisode recorded.
== END 2025-01-15 13:02 | disposition home or self-care (01) ==
PROVIDERS: PCP Internal Medicine; Visit Provider Internal Medicine
DX: Z01.818 Encounter for other preprocedural examination (principal); I10 Essential (primary) hypertension; F33.0 Major depressive disorder, recurrent, mild; K21.9 Gastro-esophageal reflux disease without esophagitis; F41.9 Anxiety disorder, unspecified

== ENCOUNTER → 2025-01-15 12:17 | Outpatient (BNVA) | payer OTHER, SELFPAY | PROVIDERS: PCP Internal Medicine; Visit Provider Internal Medicine | DX: Z01.818 Encounter for other preprocedural examination (principal); I10 Essential (primary) hypertension; F33.0 Major depressive disorder, recurrent, mild; K21.9 Gastro-esophageal reflux disease without esophagitis; F41.9 Anxiety disorder, unspecified | CPT/HCPCS: 96127; 99212 ==

== ENCOUNTER → 2025-01-20 09:58 | Outpatient (REF) | payer OTHER, SELFPAY ==
--- NOTE | 2025-01-20 10:05 | ECG_ITS ---
Test Reason : z01.818 Blood Pressure : */* mmHG Vent. Rate : 68 BPM Atrial Rate : 68 BPM P-R Int : 126 ms QRS Dur : 92 ms QT Int : 394 ms P-R-T Axes : 48 -24 23 degrees QTcB Int : 418 ms Normal sinus rhythm Normal ECG When compared with ECG of 02-Jul-2023 23:46, Vent. rate has decreased by 45 bpm Referred By: Jeni Rajan Electronically Signed By: LUIS DICKSON
[2025-01-20 10:19] LABS: MANUAL DIFF FLAG NO
[2025-01-20 10:54] LABS: Basophils Percent Auto 0.5 % (0-2); Eosinophils Absolute Auto 0.1 X10*3/uL (0.0-0.4); Eosinophils Percent Auto 1.1 % (0-4); Hematocrit 35.8 % (37.0-47.0); Hemoglobin 11.3 g/dl (12.0-16.0); Imm Gran Abs Auto 0.01 X10*3/uL (0.00-0.03); Imm Gran Pct Auto 0.2 % (0.0-0.4); Lymphocytes Percent Auto 36.7 % (20-40); Mean Corpuscular HGB Conc 31.6 g/dl (31.0-35.0); Mean Corpuscular Hemoglobin 26.7 pg (27.0-33.0); Mean Corpuscular Volume 84.6 fL (80.0-98.0); Mean Platelet Volume 9.7 fL (9.4-12.3); Monocytes Absolute Auto 0.4 X10*3/uL (0.1-1.2); Monocytes Percent Auto 6.6 % (2-11); Neutrophils Percent Auto 54.9 % (45-73); Platelet Count 291 X10*3/uL (160-400); Red Blood Count 4.23 X10*6/uL (4.20-5.50); Red Cell Distribution Width 15.8 % (11.0-16.0); White Blood Count 5.5 X10*3/uL (4.8-10.8)
--- OUTSIDE RECORDS SUMMARY | 2025-01-20 11:32 | XMS_ITS | Encounter Summary ---
Author Organization [employer] [facility] Address [address] [place] [address] Care Team Providers Care Psychology Teacher Name Role Phone Delphine Zamora MD Primary Care Provider Dixon pnia Encounter Details Date Type Department Care Team Description 01/23/2018 Marketing Lead Report Medical Records [address] [place] [address] Instrum, Oraliaaleari A. Social History Tobacco Use Types Packs/Day Years Used Date Smoking Tobacco: Never Smokeless Tobacco: Never Alcohol Use Standard Drinks/Week Comments Yes 0 (1 standard drink = 0.6 oz pur e alcohol) 2-3 beer/month Sex Assigned at Date Recorded Not on file documented as of this encounter Plan of Treatment Not on file documented as of this encounter Visit Diagnoses Not on filedocumented in this encounter Care Teams Psychology Teacher Relationship Specialty Start Date End Date Delphine Zamora MD PCP - General Internal Medicine 09/28/11 documented as of this encounter
--- OUTSIDE RECORDS SUMMARY | 2025-01-20 11:32 | XMS_ITS | Encounter Summary ---
Author Organization [employer] Address [address] [place] [address] Care Team Providers Care Trauma Coordinator Name Role Phone Delphine Zamora MD Primary Care Provider Dixon pina Encounter Details Date Type Department Care Team Description 01/10/2016 Controlled Substance Contract with Plan Medical Records [address] [place] [id number] Abstract, Provider Social History Tobacco Use Types Packs/Day Years [...] on filedocumented in this encounter Care Teams Trauma Coordinator Relationship Specialty Start Date End Date Delphine Zamora MD PCP - General Internal Medicine 09/28/11 documented as of this encounter
--- OUTSIDE RECORDS SUMMARY | 2025-01-20 11:32 | XMS_ITS | Encounter Summary ---
Author Organization [employer] [facility] Address [address] [place] [address] Care Team Providers Care Regulator Mechanic Name Role Phone Delphine Zamora MD Primary Care Provider Dixon pina Encounter Details Date Type Department Care Team Description 12/05/2016 [facility] Medical Records [address] [place] [address] Abstract, Provider Social History Tobacco Use Types [...] on filedocumented in this encounter Care Teams Regulator Mechanic Relationship Specialty Start Date End Date Delphine Zamora MD PCP - General Internal Medicine 09/28/11 documented as of this encounter
--- OUTSIDE RECORDS SUMMARY | 2025-01-20 11:32 | XMS_ITS | Encounter Summary ---
Author Organization [facility] Address [address] [place] [address] Care Team Providers Care Employment Agency Manager Name Role Phone Delphine Zamora MD Primary Care Provider Dixon pina Encounter Details Date Type Department Care Team Description 08/23/2018 Application Consultant Report Medical Records [address] [place] [address] Instrum, Oraliaaleari A. Social History Tobacco Use [...] on filedocumented in this encounter Care Teams Employment Agency Manager Relationship Specialty Start Date End Date Delphine Zamora MD PCP - General Internal Medicine 09/28/11 documented as of this encounter
--- OUTSIDE RECORDS SUMMARY | 2025-01-20 11:32 | XMS_ITS | Encounter Summary ---
Author Organization [employer] [facility] Address [address] [place] [address] Care Team Providers Care Maintenance Millwright Name Role Phone Delphine Zamora MD Primary Care Provider Dixon pina Reason for Visit * Reason Onset Date Comments Testing 10/11/2016 Encounter Details Date Type Department Care Team Description 10/11/2016 Telephone Radiology - [address] [id number] Aarti Dempsey MD [address] [place] [id number] Testing Social History Tobacco Use Types Packs/Day Years Used Date Smoking Tobacco: Never Smokeless Tobacco: Never Alcohol Use Standard Drinks/Week Comments Yes 0 (1 standard drink = 0.6 oz pur e alcohol) 2-3 beer/month Sex Assigned at Date Recorded Not on file documented as of this encounter Miscellaneous Notes * Telephone Encounter - Chen Chávez - 10/11/2016 8:08 PM EST Ms. Herrera does not want to have the SONO PELVIS COMPLETE ordered by you on 12/15/15. After several attempts by phone, the order will be removed and need to be replaced if wanted in the future. Thank you, Radiology documented in this encounter Plan of Treatment Not on file documented as of this encounter Visit Diagnoses Not on filedocumented in this encounter Care Teams Maintenance Millwright Relationship Specialty Start Date End Date Delphine Zamora MD PCP - General Internal Medicine 09/28/11 documented as of this encounter
--- OUTSIDE RECORDS SUMMARY | 2025-01-20 11:32 | XMS_ITS | Encounter Summary ---
Author Organization [facility] Address [address] [place] [address] Care Team Providers Care Oil Well Pumper Name Role Phone Delphine Zamora MD Primary Care Provider Dixon pina Reason for Visit * Reason Comments E-prescribe Rx Request Encounter Details Date Type Department Care Team Description 01/28/2018 Refill Adult Medicine [address] [address] Delphine Zamora MD E-prescribe Rx Request Social History Tobacco Use Types Packs/Day Years Used Date Smoking Tobacco: Never Smokeless Tobacco: Never Alcohol Use Standard Drinks/Week Comments Yes 0 (1 standard drink = 0.6 oz pur e alcohol) 2-3 beer/month Sex Assigned at Date Recorded Not on file documented as of this encounter Miscellaneous Notes * Telephone Encounter - Gladys Wang M.A. - 01/29/2018 9:19 AM EST Dori 03/07/17 F/u apt none at this time Last refill 12/13/17 * Telephone Encounter - Johnna Santana - 01/29/2018 9:18 AM EST Patient would like script to be: E-PRESCRIBED/FAXED TO PHARMACY WHEN WAS THE PATIENT'S LAST APPOINTMENT IN ADULT MEDICINE? 03/07/17 WHEN WAS THE LAST TIME THE PATIENT SAW THEIR PCP? Does patient have an upcoming appointment? No[facility] to refill request. Appt due (THE MEDICATION REQUESTED IS ON THE MED LIST ABOVE) All of the medications requested were on the CURRENT MEDS list Did you check the Pharmacy information above?: YES Patient wants: 30 -day supply Is this a mail order prescription request ? NO Patients current insurance carrier is: Payor: [employer] [place] / Plan: [email or web address] $20 [place] 1 / Product Type: [email or web address] [id number] DD documented in this encounter Plan of Treatment Not on file documented as of this encounter Visit Diagnoses Not on filedocumented in this encounter Care Teams Oil Well Pumper Relationship Specialty Start Date End Date Delphine Zamora MD PCP - General Internal Medicine 09/28/11 documented as of this encounter
--- OUTSIDE RECORDS SUMMARY | 2025-01-20 11:32 | XMS_ITS | Encounter Summary ---
Author Organization [facility] Address [address] [place] [address] Care Team Providers Care Business Economist Name Role Phone Delphine Zamora MD Primary Care Provider Dixon pina Encounter Details Date Type Department Care Team Description 06/14/2018 Bike Mechanic Report Medical Records [address] [place] [address] Orthopedics, [address] [place] [address] Social History Tobacco Use Types Packs/Day Years [...] on filedocumented in this encounter Care Teams Business Economist Relationship Specialty Start Date End Date Delphine Zamora MD PCP - General Internal Medicine 09/28/11 documented as of this encounter
--- OUTSIDE RECORDS SUMMARY | 2025-01-20 11:33 | XMS_ITS | Data Portability ---
Author Organization [facility] Address [address] [place] [phone] Care Team Providers Care Blog Writer Name Role Phone Unavailable Pharmacy Technician [phone] ORIN MARTINEZ Referring Provider Assessment Encounter Date Assessment Date Assessment LastModified [...] By Organization Details Last Modified Time 04/30/2019 [id number] Device provided has good fit and function. [...] 9 BI Procedures completed Joel Farhan [facility] 04/30/2019 16:32:27 Imaging Results None recorded. [...] SNOMED-CT Code Diagnosis ICD10 Code Diagnosis Note [id number] Joel Farhan [facility] [address] [place] [address] 04/30/2019 16:01:51 05/01/2019 22:48:53 Sprain of shoulder [id number] S43.429A Health Concerns Section Related Observation LastModified [...] [facility] PAC[facility] Phase1, post op. ANNELISE King [place] [place] [facility] 04/30/2019 16:32:53 OBGyn Episode No OBEpisode recorded.
--- OUTSIDE RECORDS SUMMARY | 2025-01-20 11:33 | XMS_ITS | Encounter Summary ---
Author Organization [facility] Address [address] [facility] [address] [place] [address] Care Team Providers Care Overnight Babysitter Name Role Phone Unavailable Primary Care Provider Unavailabl e Encounter Details Date Type Department Care Team (Latest Contact Info) Description 06/10/2019 Abstract C CONVERSIONS Dental, Provider, DDS Social History Tobacco Use Types Packs/Day Years Used Date Smoking Tobacco: Never Assessed Comments Unknown Sex and Gender Information Value Date Recorded Sex Assigned at Female 09/25/2022 10:19 AM EDT Legal Sex Female 10:19 AM EDT Gender Identity Female 09/25/2022 10:19 AM EDT Sexual Orientation Straight 09/25/2022 10 :19 AM EDT documented as of this encounter Plan of Treatment Not on file documented as of this encounter Visit Diagnoses Not on filedocumented in this encounter
--- OUTSIDE RECORDS SUMMARY | 2025-01-20 11:33 | XMS_ITS | Encounter Summary ---
Author Organization [facility] Address [address] [facility] [address] [place] [address] Care Team Providers Care Cupola Charger Name Role Phone Unavailable Primary Care Provider Unavailabl e Encounter Details Date Type Department Care Team (Latest Contact Info) Description 02/23/2022 Abstract [facility]HC CONVERSIONS Dental, Provider, DDS Social History Tobacco [...]
--- OUTSIDE RECORDS SUMMARY | 2025-01-20 11:33 | XMS_ITS | Encounter Summary ---
Author Organization [facility] [facility] Address [address] [facility] [address] [place] [address] Care Team Providers Care Seeing Eye Dog Trainer Name Role Phone Unavailable Primary Care Provider Unavailabl e Encounter Details Date Type Department Care Team (Latest Contact Info) Description 01/07/2021 Abstract HHC CONVERSIONS Dental, Provider, DDS Social [...]
--- OUTSIDE RECORDS SUMMARY | 2025-01-20 11:33 | XMS_ITS | Encounter Summary ---
Author Organization [facility] Address [address] [place] [address] Care Team Providers Care Harness Fitter Name Role Phone Delphine Zamora MD Primary Care Provider Dixon pina Encounter Details Date Type Department Care Team Description 11/25/2015 DEVELOPMENT ENGINEER/[employer] Report Medical Records [address] [place] [address] Abstract, Provider Social History Tobacco Use Types [...] on filedocumented in this encounter Care Teams Harness Fitter Relationship Specialty Start Date End Date Delphine Zamora MD PCP - General Internal Medicine 09/28/11 documented as of this encounter
--- OUTSIDE RECORDS SUMMARY | 2025-01-20 11:33 | XMS_ITS | Clinical Summary ---
Author Organization [facility] Address [address] [place] [address] Care Team Providers Care Charge Weigher Name Role Phone Delphine Zamora MD Primary Care Provider Dixon lable Allergies No known active allergies Medications Medication Sig Dispensed Refills Start Date End Date Status naproxen (NAPROSYN) 500 MG tablet 0 08/30/2018 Active cyclobenzaprine (FLEXERIL) 5 MG tablet Take 1 Tab by mouth 2 times daily as needed for Muscle spasms for up to 10 days. 60 Tab 0 09/05/2018 Active omeprazole (PRILOSEC) 20 MG capsule TAKE 1 CAPSULE BY MOUTH EVERY DAY 30 Cap 0 03/21/2019 Active silver sulfADIAZINE (SSD) 1 % cream Apply small amount to the wound once daily before dressing with bandaid 50 g 1 06/04/2023 Active Active Problems Problem Noted Date Family history of colon cancer 6 Rectal bleeding 02/04/2016 Heartburn 01/10/2016 Uterine fibroid 06/11/2013 Vitamin D deficiency 02/17/2013 Obesity 05/31/2010 TUBAL LIGATION 07/26/2006 DEPRESSION 07/26/2006 Immunizations Name Administration Dates Next Due TD (STATE SUPPLIED FOR ADULTS AND CHILDREN) 06/28 Tdap 02/11/2013 Family History Medical History Relation Name Comments Stroke Brother 2 Asthma Brother 3 CA Colon Brother 4 63 years old Arthritis Mother Asthma Mother Cataract Mother Hypertension Mother RI Mother age 75 CA Colon Sister 6 50 years old Blindness Negative Hx CA Breast Negative Hx CA Ovarian Negative Hx CA Prostate Negative Hx Glaucoma Negative Hx Macular Degeneration Negative Hx Strabismus Negative Hx Uterine Cancer Negative Hx Relation Name Status Comments Brother 1 Brother 2 Brother 3 Brother 4 Daughter 1 Alive healthy Daughter 2 Alive healthy Father Maternal Grandfather Maternal Grandmother Mother Paternal Grandfather Paternal Grandmother Sister 1 Alive Colon cancer Sister 2 Alive Sister 3 Alive Sister 4 Alive Sister 5 Alive Sister 6 Son Alive healthy Social History Tobacco Use Types Packs/Day Years Used Date Smoking Tobacco: Never Smokeless Tobacco: Never Tobacco Cessation:Counseling Given: Not Answered Alcohol Use Standard Drinks/Week Comments Yes 0 (1 standard drink = 0.6 oz pur e alcohol) 2-3 beer/month Sex Assigned at Date Recorded Not on file Last Filed Vital Signs Vital Sign Reading Time Taken Comments Blood Pressure 142/88 09/11/2018 9:09 AM EDT Pulse 88 09/11/2018 9:09 AM EDT Temperature 36.7 ??C (98 ??F) 09/05/2018 9:42 AM EDT Respiratory Rate 16 09/11/2018 9:09 AM EDT Oxygen Saturation 98% 02/21/2016 8:39 AM EDT Inhaled Oxygen Concentration - - Weight 77.1 kg (170 lb) 06/19/2023 11:02 AM EDT Height 157.5 cm (5' 2 ) 06/19/2023 11:02 AM EDT Body Mass Index 31.09 06/19/2023 11:02 AM EDT Plan of Treatment Health Maintenance Due Date Last Done Comments Covid-19 Vaccine (#1) 1960 SHINGLES VACCINE (1 of 2) 2010 MAMMOGRAM 10/20/2018 10/20/2017, 08/26, 08/28/2015, Additional history exists COLON CANCER SCREENING 02/20/2021 02/21/2016, 2009 CERVICAL CANCER SCREENING 09/11/20212017, 06/11/2013, 05/02/2012, Additional history exists CHOLESTEROL SCREENING 06/13/2023 06/13/2018 , 02/15/2013, 08/16/2010, Additional history exists INFLUENZA (#1) 2024 BMI CHECK/ADVISE 11/26/2024 09/11/2018, , 05/26/2015 DEPRESSION SCREENING/FOLLOWUP 11/26/2024, 08/28/2013, 07/26/2006, Additional history exists SOCIAL NEEDS SCREENING 11/26/2024 PNEUMOCOCCAL VACCINE FOR HIG H RISK PATIENTS (#1) 2025 DTAP/TDAP/TD (3 - Td or Tdap) 10/14/2028, 02/11/2013, 07/26/2006 Care Teams Charge Weigher Relationship Specialty Start Date End Date Delphine Zamora MD PCP - General Internal Medicine 09/28/11
--- OUTSIDE RECORDS SUMMARY | 2025-01-20 11:33 | XMS_ITS | Clinical Summary ---
Author Organization [employer] Address [address] [facility] [address]t [place] [address] Care Team Providers Care Frit Coater Name Role Phone Unavailable Primary Care Provider Unavailabl e Allergies No known active allergies Medications diclofenac (Voltaren) 75 MG EC tablet Take 75 mg by mouth 2 times daily. 3 Active ergocalciferol (Vitamin D2) 1.25 MG (40974 UT) capsule Take 1 capsule by mouth 1 (one) time per week. 3 Active escitalopram (Lexapro) 10 MG tablet Take 10 mg by mouth in the morning. 3 Active famotidine (Pepcid) 20 MG tablet TAKE 1 TABLET ORALLY BEDTIME NEEDED FOR ACID REFLUX 3 Active gabapentin (Neurontin) 300 MG capsule Take 300 mg by mouth 2 times daily. 3 Active metoprolol tartrate (Lopressor) 50 MG tablet Take 50 mg by mouth 2 times daily. 3 Active omeprazole (PriLOSEC) [address] capsule Take 40 mg by mouth in the morning. 3 Active GaviLAX 17 GM/SCOOP powder MIX 17 GRAMS INTO LIQUID AND DRINK BY MOUTH ONCE A DAY 3 Active Senna-Time 8.6 MG tablet TAKE 2 TABLETS BY MOUTH EVERY DAY AT BEDTIME FOR CONSTIPATION 3 Active silver sulfADIAZINE (Silvadene) 1 % cream 3 Active simethicone (Mylicon) 80 MG chewable tablet CHEW AND SWALLOW 1 TABLET 3-4 TIMES DAILY NEEDED FOR GAS 3 Active Active Problems Problem Noted Date Diagnosed Date Dental plaque 06/06/2023 Localized gingival recession 06/06/2023 Dental caries 05/15/2023 Open fracture of tooth 05/15/2023 Partial edentulism 05/15/2023 Social History Tobacco Use Types Packs/Day Years Used Date Smoking Tobacco: Never Passive Smoke Exposure: Never Smokeless Tobacco: Never Tobacco Cessation:Counseling Given: Not Answered Alcohol Use Standard Drinks/Week Comments Never 0 (1 standard drink = 0.6 oz pur e alcohol) Comments Unknown Sex and Gender Information Value Date Recorded Sex Assigned at Female 09/25/2022 10:19 AM EDT Legal Sex Female 10:19 AM EDT Gender Identity Female 09/25/2022 10:19 AM EDT Sexual Orientation Straight 09/25/2022 10 :19 AM EDT Last Filed Vital Signs Vital Sign Reading Time Taken Comments Blood Pressure 134/76 06/06/2023 1:09 PM EDT Pulse 74 06/06/2023 1:09 PM EDT Temperature - - Respiratory Rate - - Oxygen Saturation - - Inhaled Oxygen Concentration - - Weight - - Height - - Body Mass Index - - Plan of Treatment Health Maintenance Due Date Last Done Comments CT Colonography 1960 Colonoscopy 1960 Colorectal Cancer Screening 1960 Depression Screening 1960 FIT DNA/Cologuard 1960 FIT 1960 FOBT 1960 HIV Screening 1960 Lipid Panel 1960 SDOH Screening 1960 Sigmoidoscopy 1960 Alcohol/Substance Use Screening 1972 Hepatitis C Screening 1978 Pap Smear 1981 Cervical Cancer Screening 1990 HPV/Cotest 1990 Mammogram 2000 Pneumococcal Vaccine: 50+ Years (1 of 1 - PCV) 2010 Dental X-Ray: Bitewings 01/08/2022 01/07/20 21, 06/10/2019, 01/18/2018, Additional history exists Dental Oral Exam 12/08/2023 06/06/2023, , 01/07/2021, Additional history exists Dental Prophylaxis 12/08/2023 06/06/2023, 0 02/23/2022, 01/07/2021, Additional history exists Tobacco Screening 06/06/2024 06/06/2023 COVID-19 Vaccine (2023- season) 2024 03/26/2021, 03/05/2021 Influenza Vaccine (#1) 2024 Dental X-Ray: Full Mouth 04/25/2026 023, 01/18/2018, 04/23/2014 DTaP/Tdap/Td Vaccines (3 - Td or Tdap) 10/14/2028 10/14/2018, 02/11/2013, 07/26/2006 RSV Patients and Patients Aged 60 years or older (1 - 1-dose 75+ series) 2035 Zoster Vaccines Completed 01/21/2021, 10/19/2020 HIB Vaccines Aged Out No longer eligi ble based on patient's age to complete this topic HPV Vaccines Aged Out No longer eligi ble based on patient's age to complete this topic Hepatitis A Vaccines Aged Out No long er eligible based on patient's age to complete this topic Hepatitis B Vaccines Aged Out No long er eligible based on patient's age to complete this topic IPV Vaccines Aged Out No longer eligi ble based on patient's age to complete this topic Meningococcal Vaccine Aged Out No yin philly eligible based on patient's age to complete this topic Pneumococcal Vaccine: Pediatrics (0 to 5 Years) and At-Risk Patients (6 to 49) Years) Aged Out No longer eligible based on patient's age to complete this topic RSV under 20 months Aged Out No longe r eligible based on patient's age to complete this topic Rotavirus Vaccines Aged Out No longer eligible based on patient's age to complete this topic Procedures Procedure Name Priority Date/Time Associated Diagnosis Comments PROPHYLAXIS - ADULT Routine 06/06/2023 1 :00 PM EDT Dental plaque PERIODIC ORAL EVALUATION - ESTABLISHED PATIENT Routine 06/06/2023 1:00 PM EDT PANORAMIC RADIOGRAPHIC IMAGE Routine 04/24/2023 11:30 AM EDT BITEWINGS - 4 RADIOGRAPHIC IMAGES Routine 01/07/2021 12:00 AM EST from Last 3 Months or Most Recently Relevant to Health Maintenance Insurance [facility] MEDICAID STAND ADULT
--- OUTSIDE RECORDS SUMMARY | 2025-01-20 11:33 | XMS_ITS | Encounter Summary ---
Author Organization [facility] Address [address] [place] [address] Care Team Providers Care Hris Manager Name Role Phone Daniel Sethi MD Primary Care Provider [phone] Annette Jeong MD Primary Care Provider [facility], Pcp Primary Care Provider [facility] Víctor Kinsey Primary Care Provider [phone] Delphine Zamora MD Primary Care Provider Dixon pina Encounter Details Date Type Department Care Team Description 05/31/2005 Orders Only Medical [address] [place], [place] [id number] Víctor Kinsey [address] [place], [place] [id number] ROUTINE GENERAL MEDICAL EXAMINATION AT A HEALTH CARE FACILITY (Primary Dx) Social History Tobacco Use Types Packs/Day Years Used Date Smoking Tobacco: Never Assessed Sex Assigned at Date Recorded Not on file documented as of this encounter Plan of Treatment Scheduled Orders Name Type Priority Associated Diagnoses Orde r Schedule VENIPUNCTURE Lab Routine Routine General Medical Examination At A Health Care Facility Ordered: 05/31/2005 documented as of this encounter Procedures Procedure Name Priority Date/Time Associated Diagnosis Comments CBC WITHOUT DIFF Routine 05/31/2005 10:3 3 AM EDT Routine General Medical Examination At A Health Care Facility CHG BASIC METABOLIC PANEL CALCIUM TOTAL Routine 05/31/2005 10:33 AM EDT Routine General Medical Examination At A Health Care Facility CHG ANTIBODY HIV-1&HIV-2 SINGLE RESULT Routine 05/31/2005 10:33 AM EDT Routine General Medical Examination At A Health Care Facility documented in this encounter Results * HIV-1/HIV-2, SINGLE ASSAY (05/31/2005 10:33 AM EDT) Pathologist [facility] HIV 1&2 ANTIBODY SCREEN NEGATIVE NEGATIVE [facility] 05/31/2005 10:3 3 AM EDT 05/31/2005 10:34 AM EDT Víctor Navalong LAB Performing Organization Address [facility] [address]/[facility] Co de Phone Number [facility] * (ABNORMAL) CBC WITHOUT DIFF (05/31/2005 10:33 AM EDT) Pathologist [facility] WHITE BLOOD COUNT 6.3 4.8 - 10.8 x10-3 [facility] RED BLOOD COUNT 4.5 3.8 - 4.8 x10-6 [facility] Hemoglobin 12.9 12.0 - 15.0 g/dL [facility] Hematocrit 40.4 36 - 46 % [facility] MEAN CORPUSCULAR VOLUME 90.4 79 - 98 fl [facility] MEAN CORPUSCULAR HEMOGLOBIN 28.9 27 - 32 pg [facility] HGB CONC 31.9(L) 32 - 37 g/dl [facility] RED CELL DISTRIBUTION WIDTH 14.2 11 - 15 % [facility] PLT COUNT 282 130 - 400 x10-3 [facility] 05/31/2005 10:3 3 AM EDT 05/31/2005 10:34 AM EDT Víctor Navalong LAB Performing Organization Address [facility] [address]/ZIP Co de Phone Number [facility] * (ABNORMAL) BASIC METABOLIC PANEL (05/31/2005 10:33 AM EDT) Pathologist [facility] GLUCOSE 83 70 - 110 mg/dL [facility] Blood Urea Nitrogen 14 5 - 25 mg/dL [facility] creatinine 0.6(L) 0.7 - 1.5 mg/dL [facility] Sodium 139 133 - 145 mEq/L [facility] Potassium 4.4 3.5 - 5.2 mEq/L [facility] Chloride 106 96 - 108 mEq/L [facility] CARBON DIOXIDE (CO2) 25.0 21.0 - 32.0 mEq/L [facility] CALCIUM 9.0 8.5 - 10.5 mg/dL [facility] 05/31/2005 10:3 3 AM EDT 05/31/2005 10:34 AM EDT Víctor Kinsey LAB [facility] documented in this encounter Visit Diagnoses Diagnosis Routine general medical examination at a health care facility- Primary documented in this encounter Care Teams Hris Manager Relationship Specialty Start Date End Date Daniel Sethi MD [address] [place] [id number] PCP - General 02/28/11 09/27/11 [place]-Annette Yip MD PCP - General 07/03/06 [facility], Pcp PCP - General 07/02/06 07/02/06 Víctor Kinsey [address] [place] [id number] PCP - General 03/29/05 07/01/06 Delphine Zamora MD [address] [place] [id number] PCP - General Internal Medicine 09/28/11 documented as of this encounter
--- OUTSIDE RECORDS SUMMARY | 2025-01-20 11:33 | XMS_ITS | Encounter Summary ---
Author Organization [facility] Address [address] [place] [address] Care Team Providers Care Chipper Machine Operator Name Role Phone Delphine Zamora MD Primary Care Provider Dixon pina Encounter Details Date Type Department Care Team Description 12/29/2011 Night Triage Doc Medical Records [address] [place] [address] Abstract, Provider Social History Tobacco Use Types [...] on filedocumented in this encounter Care Teams Chipper Machine Operator Relationship Specialty Start Date End Date Delphine Zamora MD PCP - General Internal Medicine 09/28/11 documented as of this encounter
--- OUTSIDE RECORDS SUMMARY | 2025-01-20 11:33 | XMS_ITS | Encounter Summary ---
Author Organization [facility] [facility] Address [address] [place] [address] Care Team Providers Care Battery Container Finishing Hand Name Role Phone Delphine Zamora MD Primary Care Provider Dixon pina Encounter Details Date Type Department Care Team Description 10/01/2018 Release of Information Medical Records [address] [place] [id number] Abstract, Provider Social History Tobacco Use Types [...] on filedocumented in this encounter Care Teams Battery Container Finishing Hand Relationship Specialty Start Date End Date Delphine Zamora MD PCP - General Internal Medicine 09/28/11 documented as of this encounter
--- OUTSIDE RECORDS SUMMARY | 2025-01-20 11:33 | XMS_ITS | Encounter Summary ---
Author Organization [facility] Address [address] [place] [address] Care Team Providers Care Utility Gelatin Maker Name Role Phone Delphine Zamora MD Primary Care Provider Dixon pina Encounter Details Date Type Department Care Team Description 11/04/2020 Technical Operations Specialist Report Medical Records [address] [place] [address] Ruthann Hinton Social History Tobacco Use Types Packs/Day Years [...] on filedocumented in this encounter Care Teams Utility Gelatin Maker Relationship Specialty Start Date End Date Delphine Zamora MD PCP - General Internal Medicine 09/28/11 documented as of this encounter
[2025-01-20 11:37] LABS: Alanine Aminotransferase 15 U/L (0-31); Albumin Level 3.9 g/dL (3.5-5.0); Alkaline Phosphatase 97 U/L (39-117); Anion Gap 13 (12-20); Aspartate Amino Transferase 21 U/L (5-31); Bilirubin Total 0.4 mg/dL (0.0-1.0); Blood Urea Nitrogen 16 mg/dL (9-16); Calcium 9.2 mg/dL (8.4-10.2); Carbon Dioxide 27 mmol/L (22-29); Chloride 106 mmol/L (96-108); Cholesterol 185 mg/dL (<200); Estimated Glomerular Filt Rate > 60; Glucose Fasting 93 mg/dL (60-99); HDL Cholesterol 71 mg/dL (>40); LDL Cholesterol Calculated 98 mg/dL (<100); Potassium 3.6 mmol/L (3.3-5.1); Sodium 142 mmol/L (135-145); Total Protein 7.2 g/dL (6.5-8.0); Triglycerides 80 mg/dL (<150)
[2025-01-20 11:54] LABS: Vitamin D 25-OH Total 40.5 ng/mL (>30)
== END ==
LOC: HO.CARD 09:58
PROVIDERS: PCP Internal Medicine; Visit Provider Internal Medicine
DX: Z01.818 Encounter for other preprocedural examination (principal); E55.9 Vitamin D deficiency, unspecified; D12.6 Benign neoplasm of colon, unspecified; E78.5 Hyperlipidemia, unspecified
CPT/HCPCS: 36415; 80053; 80061; 82306; 85025; 93005

== ENCOUNTER → 2025-01-20 10:05 | Outpatient (BNV) | payer OTHER, SELFPAY | PROVIDERS: PCP Internal Medicine; Visit Provider Internal Medicine | DX: Z01.818 Encounter for other preprocedural examination (principal) | CPT/HCPCS: 93010 ==

== ENCOUNTER 2025-01-26 09:27 | Day surgery (SDC) | payer OTHER, SELFPAY ==
[2025-01-22 08:05] VITALS: BMI 35.0
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
[2025-01-26 11:38] VITALS: BP 135/58; PULSE 71; RESP 15; TEMP 36.6; O2SAT 99
[2025-01-26] MEDS: Lactated Ringers 500 ML 50 ML IV (11:57)
--- NOTE | 2025-01-26 12:20 | MHC.SHP ---
Pre-Procedural Eval Section A - 24 Hr Update-Section A only Date of Service: 01/26/25 The patient is an INPATIENT: No Changes since office visit: No Cold of Flu in the past 2 weeks, No New Medical Problems, No Changes in Medication and No Patient answered all questions The patient has been examined within 24 hours of the surgical procedure. The History & Physical has been completed within 30 days and I have reviewed it.: Yes Section B - Complete if H&P > 30 days Chief Complaint: Dermatochalasis of right upper eyelid Allergies: Allergies Allergy/AdvReac Type Severity Reaction Status Date / Time No Known Allergies Allergy Verified 01/26/25 11:38 Plan Diagnosis/Plan: Unchanged I have reviewed the history and physical and performed a pertinent physical examination on my patient. No changes have occurred unless specified. Time Spent With Patient Time: Total time managing care of this patient today ____ minutes.
--- NOTE | 2025-01-26 12:20 | HO.PNOPHT ---
Ophthalmology Procedure Procedure Date of Service: 01/26/25 Ophthalmology Viscoelastic: Not Applicable Ophthalmology Lenses: Not Applicable Procedure Notes: PREOPERATIVE DIAGNOSIS: Decreased visual field secondary to dermatochalasia POSTOPERATIVE DIAGNOSIS: Same PROCEDURE: Bilateral Blepharoplasty, upper eyelids SURGEON: Corbin Parks M.D. ANESTHESIA: Local with sedation ESTIMATED BLOOD LOSS: None COMPLICATIONS: None After obtaining informed consent, the patient was brought to the operating room and placed in supine position. After adequate sedation per Anesthesia, the eyes were prepped and draped in the usual sterile fashion. Attention was directed to the right eye where a double pinch test was completed to assure excess tissue was not removed from the upper lid. The margin was marked at the proposed incision sites. The left eye was done in a similar fashion. 2% Lidocaine with epinephrine was then instilled subcutaneously along the margin of the pre-marked skin incisions. #15 scalpel blade was then utilized to create the incisions. Using a combination of sharp and blunt dissection with Vipul scissors, the epidermis was removed. Hemostasis was achieved with cautery. 6-0 plain suture was then utilized to close the incision site. Attention was directed to the left upper lid where subcutaneous 2% with Epinephrine Lidocaine was instilled along the pre-marked areas. A #15 scalpel blade was then utilized to create the incisions followed by sharp and blunt dissection with Vipul scissors to remove the overlying epidermis. Hemostasis was achieved with cautery, followed by closure with 6-0 plain suture. The patient tolerated the procedure well. The patient will be followed up in the a.m. Topical antibiotic ointment was instilled over the incision sites and ice as tolerated for 48 hours.
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
[2025-01-26 13:30] VITALS: BP 123/63; PULSE 67; RESP 16; TEMP 36.1; O2SAT 99
[2025-01-26 13:35] VITALS: BP 126/71; PULSE 67; RESP 16; O2SAT 98
[2025-01-26 13:40] VITALS: BP 121/66; PULSE 64; RESP 16; O2SAT 99
[2025-01-26 13:46] VITALS: BP 120/61; PULSE 61; RESP 16; O2SAT 99
== END 2025-01-26 14:10 | disposition home or self-care (01) ==
PROVIDERS: PCP Internal Medicine; Visit Provider Ophthalmology
PROC: (CPT 15823; principal; 2025-01-26 12:30)
DX: H02.831 Dermatochalasis of right upper eyelid (principal); H02.834 Dermatochalasis of left upper eyelid; I10 Essential (primary) hypertension; F33.0 Major depressive disorder, recurrent, mild; F41.9 Anxiety disorder, unspecified; Z79.899 Other long term (current) drug therapy
CPT/HCPCS: 15823; J2004; J2250; J2704

== ENCOUNTER 2025-02-12 09:08 | Outpatient (REF) | payer OTHER, SELFPAY ==
--- OUTSIDE RECORDS SUMMARY | 2025-02-12 09:44 | XMS_ITS | Encounter Summary ---
Author Organization [facility] Address [address] [place] [address] Care Team Providers Care Student Union Consultant Name Role Phone Delphine Zamora MD Primary Care Provider Dixon pina Encounter Details Date Type Department Care Team Description 01/23/2018 Chemical Equipment Repairer Report Medical Records [address] [place] [address] Instrum, Oraliaaleari A. Social History Tobacco Use [...] on filedocumented in this encounter Care Teams Student Union Consultant Relationship Specialty Start Date End Date Delphine Zamora MD PCP - General Internal Medicine 09/28/11 documented as of this encounter
--- OUTSIDE RECORDS SUMMARY | 2025-02-12 09:44 | XMS_ITS | Encounter Summary ---
Author Organization [employer] [facility] Address [address] [place] [address] Care Team Providers Care Solo Truck Driver Name Role Phone Delphine Zamora MD Primary Care Provider Dixon pina Encounter Details Date Type Department Care Team Description 12/05/2016 [facility] Medical Records [address] [place] [address] Abstract, Provider Social History Tobacco Use Types [...] on filedocumented in this encounter Care Teams Solo Truck Driver Relationship Specialty Start Date End Date Delphine Zamora MD PCP - General Internal Medicine 09/28/11 documented as of this encounter
--- OUTSIDE RECORDS SUMMARY | 2025-02-12 09:44 | XMS_ITS | Encounter Summary ---
Author Organization [employer] [facility] Address [address] [place] [address] Care Team Providers Care On Line Csr Name Role Phone Delphine Zamora MD Primary Care Provider Dixon pina Encounter Details Date Type Department Care Team Description 11/25/2015 PRINT WASHER/[employer] Report Medical Records [address] [place] [address] Abstract, Provider Social History Tobacco Use Types [...] on filedocumented in this encounter Care Teams On Line Csr Relationship Specialty Start Date End Date Delphine Zamora MD PCP - General Internal Medicine 09/28/11 documented as of this encounter
--- OUTSIDE RECORDS SUMMARY | 2025-02-12 09:44 | XMS_ITS | Encounter Summary ---
Author Organization [facility] [employer] [facility] Address [address] [place] [address] Care Team Providers Care Chick Sexer Name Role Phone Delphine Zamora MD Primary Care Provider Dixon pina Encounter Details Date Type Department Care Team Description 11/04/2020 Bioinformatics Analyst Report Medical Records [address] [place] [address] Ruthann Hinton Social History Tobacco Use Types [...] on filedocumented in this encounter Care Teams Chick Sexer Relationship Specialty Start Date End Date Delphine Zamora MD PCP - General Internal Medicine 09/28/11 documented as of this encounter
--- OUTSIDE RECORDS SUMMARY | 2025-02-12 09:44 | XMS_ITS | Encounter Summary ---
Author Organization [facility] Address [address] [place] [address] Care Team Providers Care Assembler Bicycle Name Role Phone Delphine Zamora MD Primary Care Provider Dixon pina Encounter Details Date Type Department Care Team Description 08/23/2018 Administrative Operations Coordinator Report Medical Records [address] [place] [address] Instrum, Oraliaaleari A. Social History Tobacco Use [...] on filedocumented in this encounter Care Teams Assembler Bicycle Relationship Specialty Start Date End Date Delphine Zamora MD PCP - General Internal Medicine 09/28/11 documented as of this encounter
--- OUTSIDE RECORDS SUMMARY | 2025-02-12 09:44 | XMS_ITS | Encounter Summary ---
Author Organization [email or web address] [facility] Address [address] [place] [address] Care Team Providers Care Public Policy Coordinator Name Role Phone Unavailable Primary Care Provider [...]
--- OUTSIDE RECORDS SUMMARY | 2025-02-12 09:44 | XMS_ITS | Encounter Summary ---
Author Organization [facility] Address [address] [place] [address] Care Team Providers Care Raw Stock Machine Feeder Name Role Phone Delphine Zamora MD Primary Care Provider Dixon pina Reason for Visit * Reason Onset Date Comments Testing 10/11/2016 Encounter Details Date Type Department Care Team Description 10/11/2016 Telephone Radiology - [address] [id number] Aarti Dempsey MD [address] [place] [id number] Testing Social History Tobacco Use Types Packs/Day [...] on filedocumented in this encounter Care Teams Raw Stock Machine Feeder Relationship Specialty Start Date End Date Delphine Zamora MD PCP - General Internal Medicine 09/28/11 documented as of this encounter
--- OUTSIDE RECORDS SUMMARY | 2025-02-12 09:44 | XMS_ITS | Encounter Summary ---
Author Organization [facility] Address [address] [place] [address] Care Team Providers Care Golf Ball Winder Name Role Phone Delphine Zamora MD Primary Care Provider Dixon pina Encounter Details Date Type Department Care Team Description 01/10/2016 Controlled Substance Contract with Plan Medical Records [address] [place] [id number] Abstract, Provider Social History Tobacco Use Types [...] on filedocumented in this encounter Care Teams Golf Ball Winder Relationship Specialty Start Date End Date Delphine Zamora MD PCP - General Internal Medicine 09/28/11 documented as of this encounter
--- OUTSIDE RECORDS SUMMARY | 2025-02-12 09:44 | XMS_ITS | Clinical Summary ---
Author Organization [facility] Address [address] [place] [address] Care Team Providers Care Technician Terminal And Repeater Name Role Phone Delphine Zamora MD Primary [...] Mother Asthma Mother Cataract Mother Hypertension Mother [place] Mother age 75 [place] Colon Sister 6 [...] or Tdap) 10/14/2028, 02/11/2013, 07/26/2006 Care Teams Technician Terminal And Repeater Relationship Specialty Start Date End Date Delphine Zamora MD PCP - General Internal Medicine 09/28/11
--- OUTSIDE RECORDS SUMMARY | 2025-02-12 09:44 | XMS_ITS | Data Portability ---
Author Organization [facility] Address [address] [place] [id number] Care Team Providers Care Sprinkler Installer Name Role Phone Unavailable Supervisor Webbing [phone] ORIN MARTINEZ Referring Provider Assessment Encounter Date [...] By Organization Details Last Modified Time 04/30/2019 [id number] Device provided has good fit and function. [...] 9 BI Procedures completed Joel Farhan [facility] 04/30/2019 16:32:27 Imaging Results None recorded. [...] SNOMED-CT Code Diagnosis ICD10 Code Diagnosis Note [id number] Joel Farhan [facility] [address] [place] [address] 04/30/2019 16:01:51 05/01/2019 22:48:53 Sprain of shoulder [id number] S43.429A Health Concerns Section Related Observation LastModified [...] [facility]is PACU Phase1, post op. ANNELISE King QUINAULT IVAN 04/30/2019 16:32:53 OBGyn Episode No OBEpisode recorded.
--- OUTSIDE RECORDS SUMMARY | 2025-02-12 09:44 | XMS_ITS | Encounter Summary ---
Author Organization [employer] [facility] Address [address] [facility] 7t [place] [address] Care Team Providers Care Legal Recovery Specialist Name Role Phone Unavailable Primary Care Provider [...]
--- OUTSIDE RECORDS SUMMARY | 2025-02-12 09:44 | XMS_ITS | Encounter Summary ---
Author Organization [facility] Address [address] [facility] [address] [place] [address] Care Team Providers Care Office Supervisor Name Role Phone Unavailable Primary Care Provider [...]
--- OUTSIDE RECORDS SUMMARY | 2025-02-12 09:44 | XMS_ITS | Clinical Summary ---
Author Organization [employer] Address [address] [facility] [address] [place] [address] Care Team Providers Care Registered Nurse Float Pool Name Role Phone Unavailable Primary Care Provider Unavailabl e Allergies No known active allergies Medications diclofenac (Voltaren) 75 MG EC tablet Take 75 mg by mouth 2 times daily. 3 Active ergocalciferol (Vitamin D2) 1.25 MG (09976 UT) capsule Take 1 capsule by mouth [...] Most Recently Relevant to Health Maintenance Insurance [facility] MEDICAID STAND ADULT
--- OUTSIDE RECORDS SUMMARY | 2025-02-12 09:44 | XMS_ITS | Encounter Summary ---
Author Organization [facility] Address [address] [place] [address] Care Team Providers Care Technology Auditor Name Role Phone Daniel Sethi MD Primary Care Provider [phone] Annette Jeong MD Primary Care Provider [facility], Pcp Primary Care Provider [facility] Víctor Kinsey Primary Care Provider [phone] Delphine Zamora MD Primary Care Provider Dixon pina Encounter Details Date Type Department Care Team Description 05/31/2005 Orders Only Medical [address], [place] [id number] Víctor Kinsey [address] [place], [place] [id number] ROUTINE GENERAL MEDICAL EXAMINATION AT A HEALTH [...] HIV 1&2 ANTIBODY SCREEN NEGATIVE NEGATIVE [facility] 05/31/2005 10:3 3 AM EDT 05/31/2005 10:34 AM EDT Víctor Navalong LAB Performing Organization Address [facility] Co de Phone Number [facility] * (ABNORMAL) CBC WITHOUT DIFF (05/31/2005 10:33 AM EDT) Pathologist [facility] WHITE BLOOD COUNT 6.3 4.8 - 10.8 x10-3 [facility] RED BLOOD COUNT 4.5 3.8 - 4.8 x10-6 [facility] Hemoglobin 12.9 12.0 - 15.0 g/dL [facility] Hematocrit 40.4 36 - 46 % [facility] CORPUSCULAR VOLUME 90.4 79 - 98 fl [facility] MEAN CORPUSCULAR HEMOGLOBIN 28.9 27 - 32 pg [facility] HGB CONC 31.9(L) 32 - 37 g/dl [facility] RED CELL DISTRIBUTION WIDTH 14.2 11 - 15 % [facility] PLT COUNT 282 130 - 400 x10-3 [facility] 05/31/2005 10:3 3 AM EDT 05/31/2005 10:34 AM EDT Víctor Navalong LAB Performing Organization Address [facility]/ZIP Co de Phone Number [facility] * (ABNORMAL) BASIC METABOLIC PANEL (05/31/2005 10:33 AM EDT) Pathologist [facility] GLUCOSE 83 70 - 110 mg/dL [facility] Blood Urea Nitrogen 14 5 - 25 mg/dL [facility] creatinine 0.6(L) 0.7 - 1.5 mg/dL [facility] [...] Primary documented in this encounter Care Teams Technology Auditor Relationship Specialty Start Date End Date Daniel Sethi MD [address] [place] [id number] PCP - General 02/28/11 09/27/11 [place]-Annette Yip MD PCP - General 07/03/06 [facility]cp PCP - General 07/02/06 07/02/06 Víctor Kinsey [address] [place] [id number] PCP - General 03/29/05 07/01/06 Delphine Zamora MD [address] [place] [id number] PCP - General Internal Medicine 09/28/11 documented as of this encounter
--- OUTSIDE RECORDS SUMMARY | 2025-02-12 09:44 | XMS_ITS | Encounter Summary ---
Author Organization [facility] Address [address] [place] [address] Care Team Providers Care Ground Control Approach Technician Name Role Phone Delphine Zamora MD Primary Care Provider Dixon pina Encounter Details Date Type Department Care Team Description 06/14/2018 Windows Software Developer Report Medical Records [address] [place] [address] Orthopedics, [address] [place] [address] Social History Tobacco Use Types Packs/Day Years [...] on filedocumented in this encounter Care Teams Ground Control Approach Technician Relationship Specialty Start Date End Date Delphine Zamora MD PCP - General Internal Medicine 09/28/11 documented as of this encounter
== END 2025-02-12 09:09 | disposition home or self-care (01) ==
LOC: HO.MAMMO 09:08
PROVIDERS: PCP Internal Medicine; Visit Provider Internal Medicine
DX: Z12.31 Encounter for screening mammogram for malignant neoplasm of breast (principal)
CPT/HCPCS: 77063; 77067

== ENCOUNTER → 2025-02-12 09:15 | Outpatient (BNV) | payer OTHER, SELFPAY | PROVIDERS: PCP Internal Medicine; Visit Provider Internal Medicine | DX: Z12.31 Encounter for screening mammogram for malignant neoplasm of breast (principal) | CPT/HCPCS: 77063; 77067 ==

== ENCOUNTER 2025-03-10 09:50 | Outpatient (AMB) | payer OTHER, SELFPAY ==
[2025-03-10 09:52] VITALS: BP 142/74; PULSE 78; O2SAT 98; BMI 35.2
--- NOTE | 2025-03-10 09:52 | A.OFFVIS_ITS ---
Vital Signs 03/10/25 09:52 Height 5 ft Weight 180 lb BMI 35.2 BP 142/74 H Blood Pressure Location Lt brachial Position Sitting Pulse 78 Pulse Source Pulse Oximeter Pulse Oximetry (%) 98 Oxygen Delivery Method Room Air Intake Visit Reasons: 6 month follow up GERD, constipation Intake Note: ESTABLISHED PATIENT for GERD + Constipation mgmt. Chief Complaint; Pt reports that their sx have improved since last visit; still having occasional episodes however not as severe as it was prior to last visit. Survey Methodologist Required: No Accompanied by: Self / Same As Patient Allergies No Known Allergies Allergy (Verified 03/10/25 09:53) HPI HPI 6 month follow up GERD, constipation: Details: LAST VISIT: Chronic GERD Tubular adenoma of colon Constipation Status post colonoscopy Plan Continue current treatment with omeprazole in the morning and sucralfate at bedtime. Patient can take sucralfate on as-needed basis. Continue avoiding dietary triggers and late night snacking. Staying upright for minimum 3 hours after meals discussed with patient. Patient will return for colonoscopy in 5 years due to family history of CRC and tubular adenoma. Continue fluid intake and activity to promote better bowel motility. Patient will follow-up in our office in 6 months, sooner on as needed basis. She is agreeable to this plan and verbalizes understanding of instructions. She was given the opportunity to ask questions and all questions answered. ? TODAY'S VISIT: Patient is here today for follow-up. Patient reports that she has been feeling well. Takes omeprazole in the morning and her symptoms are suppressed for the most part. Occasionally patient will take sucralfate at bedtime. Patient reports very infrequent. Patient is trying to avoid dietary triggers. Takes MiraLax in her coffee every morning, reports that she moves her bowels well however sometimes she gets constipated. Patient uses senna when the happens. Patient reports abdominal cramping when constipated. Pain in the right lower and left lower quadrant. Occasional blood after bowel movement. Denies melena. Denies dyspepsia, dysphagia or odynophagia. Patient reports that she feels like she gets constipated when she increases her fiber intake. Patient reports that she drinks 16-30 oz of fluids a day. [facility], [facility] Medical History Tubular adenoma of colon Injury of left rotator cuff Anxiety Depression GERD (gastroesophageal reflux disease) Helicobacter pylori (H. pylori) Osteoarthritis Essential (primary) hypertension BPPV (benign paroxysmal positional vertigo) Surgical History History of ptosis repair H/O unilateral oophorectomy Hx of shoulder surgery Hx of colonoscopy Family History Father Alcoholism Substance use disorder Mother Arthritis Brother Colon cancer, Onset Age: 55 Social History Housing: Apartment Are you a primary acute care certified nursing assistant to a significant other at home: No Do you presently have visiting nurse or other home services: No Alcohol intake: never Patient Tobacco Use Status: Never used Tobacco e-Cigarette/Vaping Use: Never Used Second Hand Smoke Exposure: No service: No Current occupational status: disabled Current occupation: rt hand Sexual orientation: Straight/Heterosexual Gender identity: Female Cognitive needs: No Hearing needs: No Vision needs: Yes (glasses) Review of Systems Const Denies weight gain and Denies weight loss ENT Reports no additional complaints, Denies dysphagia and Denies odynophagia Card Reports no additional complaints Resp Reports no additional complaints GI Denies abdominal pain, Denies belching, Denies melena, Reports bloating, Denies change in bowel habits, Reports constipation, Denies dysphagia, Denies excessive flatus, Denies dyspepsia, Denies heartburn, Denies diarrhea, Denies loose stools, Denies nausea, Denies odynophagia and Denies vomiting Reports no additional complaints Musc Reports no additional complaints Neuro Reports no additional complaints Psych Reports no additional complaints Endo Reports no additional complaints Physical Exam Const General: healthy appearing and no acute distress Nutritional Appearance: obese Orientation/consciousness: patient oriented x3 Resp Effort & Inspection: normal respiratory effort, able to speak in complete sentences, no tracheal deviation and symmetric chest movement Auscultation: clear to auscultation bilaterally Cardio Rate: regular rate GI Inspection: Yes normal to inspection, No distended and Yes obesity Palpation (GI): Soft to palpation, not firm, nontender and No hepatosplenomegaly present Auscultation: normal bowel sounds General: Yes no CVA tenderness Back/Spine/Pelvis Back: no CVA tenderness Skin General skin exam: elasticity normal, turgor normal and dry skin Neuro General: patient oriented x3 Psych Appearance: grossly normal Mental Status: mental status grossly normal Assessment & Plan Assessment & Plan (1) Chronic GERD: Code(s): K21.9 - Gastro-esophageal reflux disease without esophagitis Category: Medical (2) Tubular adenoma of colon: Code(s): D12.6 - Benign neoplasm of colon, unspecified Category: Medical (3) Constipation: Code(s): K59.00 - Constipation, unspecified Qualifiers: Constipation type: slow transit constipation Qualified Code(s): K59.01 - Slow transit constipation (4) Postprandial abdominal bloating: Code(s): R14.0 - Abdominal distension (gaseous) Plan Continue MiraLax daily. Patient may take 1 Senokot daily to help her move her bowels daily. Continue high-fiber diet and increase fluid intake and activity to promote better bowel motility. Patient will continue taking omeprazole. Avoid dietary triggers and late night snacking. Staying upright for minimum 3 hours after meals discussed with patient. Patient will return in 6 months, sooner on as needed basis. She is agreeable to this plan and verbalizes understanding of instructions. She was given the opportunity to ask questions and all questions answered. Thank you for allowing me to participate in her care Medications: New polyethylene glycol 3350 (Miralax) 17 grams PO DAILY 510 grams 2RF K59.00 - Constipation, unspecified sennosides (Natural Senna Laxative) 8.6 mg PO BEDTIME 90 tabs 3RF constipation K59.00 - Constipation, unspecified Refilled omeprazole 40 mg PO DAILY 90 caps 3RF K21.9 - Gastro-esophageal reflux disease without esophagitis Coding Level of Care Code Complex EM visit Add On G2211 Diagnoses Chronic GERD K21.9 Tubular adenoma of colon D12.6 Slow transit constipation K59.01 Constipation type: slow transit constipation Postprandial abdominal bloating R14.0 Time Spent (min) 30 Comment 20 minutes spent with patient and additional 10 minutes spent reviewing her records
--- OUTSIDE RECORDS SUMMARY | 2025-03-10 11:17 | XMS_ITS | Encounter Summary ---
Author Organization [employer] [facility] Address [address] [facility] 7t [place] [address] Care Team Providers Care Laborer Golf Course Name Role Phone Unavailable Primary Care Provider [...]
--- OUTSIDE RECORDS SUMMARY | 2025-03-10 11:17 | XMS_ITS | Encounter Summary ---
Author Organization [employer] [facility] Address [address] [facility] 7t [place] [address] Care Team Providers Care Scrap Burner Name Role Phone Unavailable Primary Care Provider [...]
--- OUTSIDE RECORDS SUMMARY | 2025-03-10 11:17 | XMS_ITS | Clinical Summary ---
Author Organization [employer] Address [address] [facility] [address]t [place] [address] Care Team Providers Care Annealing Oven Operator Name Role Phone Unavailable Primary Care Provider Unavailabl e Allergies No known active allergies Medications diclofenac (Voltaren) 75 MG EC tablet Take 75 mg by mouth 2 times daily. 3 Active ergocalciferol (Vitamin D2) 1.25 MG (94828 UT) capsule Take 1 capsule by mouth [...] Most Recently Relevant to Health Maintenance Insurance [facility] MEDICAID STAND ADULT
--- OUTSIDE RECORDS SUMMARY | 2025-03-10 11:17 | XMS_ITS | Encounter Summary ---
Author Organization [facility] Address [address] [facility] 7[address] [place] [address] Care Team Providers Care Stitch Cleaner Name Role Phone Unavailable Primary Care Provider [...]
== END 2025-03-10 10:21 | disposition home or self-care (01) ==
LOC: HO.HGI 09:50
PROVIDERS: PCP Internal Medicine; Visit Provider Nurse Practitioner Family
DX: K21.9 Gastro-esophageal reflux disease without esophagitis (principal); Z86.0101 Personal history of adenomatous and serrated colon polyps; K59.01 Slow transit constipation; R14.0 Abdominal distension (gaseous)
CPT/HCPCS: 99214; G2211

== ENCOUNTER → 2025-03-10 09:50 | Outpatient (BNVA) | payer OTHER, SELFPAY | PROVIDERS: PCP Internal Medicine; Visit Provider Nurse Practitioner Family | DX: K21.9 Gastro-esophageal reflux disease without esophagitis (principal); K59.01 Slow transit constipation; R14.0 Abdominal distension (gaseous); D12.6 Benign neoplasm of colon, unspecified | CPT/HCPCS: 99212 ==

== ENCOUNTER 2025-03-18 09:18 | Outpatient (AMB) | payer OTHER, SELFPAY ==
[2025-03-18 09:20] VITALS: BP 118/80; PULSE 76; O2SAT 98; BMI 35.4
--- NOTE | 2025-03-18 09:20 | A.OFFPC_ITS ---
Vital Signs 03/18/25 09:20 Height 5 ft Weight 181 lb 8 oz BMI 35.4 BP 118/80 Blood Pressure Location Lt brachial Position Sitting Pulse 76 Pulse Source Pulse Oximeter Pulse Oximetry (%) 98 Oxygen Delivery Method Room Air Intake Visit Reasons: Annual Exam Raschel Knitting Machine Operator Required: No Accompanied by: Self / Same As Patient Allergies No Known Allergies Allergy (Verified 03/18/25 09:36) Medication List - Last Reconciled 03/18/25 by Jeni Rajan MD calcium carbonate 600 mg PO BID 90 days diclofenac sodium 75 mg PO BID diltiazem HCl ER 60 mg PO BID 90 days ergocalciferol (vitamin D2) 1,250 mcg PO QWEEK escitalopram oxalate 10 mg PO DAILY gabapentin 300 mg PO BID losartan 100 mg PO DAILY 90 days omeprazole 40 mg PO DAILY polyethylene glycol 3350 (Miralax) 17 grams PO DAILY sennosides (Natural Senna Laxative) 8.6 mg PO BEDTIME simethicone (Gas Relief (simethicone)) 80 mg PO TID-QID PRN sucralfate 1 g PO BEDTIME Tobacco use date assessed: 03/18/25 Fall risk assessment: 1 Fall in past year Last assessed Fall Risk: 03/18/25 Dental Screening Dental Screen Date: 03/18/25 Did you have a dental visit in the last 12 months?: No Did you have a dental problem in the last 6 months where you did not have access to dental care?: No Was dental information given to patient?: No HPI HPI Comments History of Present Illness Details The patient is a 64-year-old female presenting for an annual physical examination and health maintenance. The management of her essential hypertension includes diltiazem 60 mg twice daily and losartan 100 mg. She experiences depression and anxiety managed with escitalopram, which requires refills. Osteopenia was identified on a recent bone densitometry in 2022, and she manages it with calcium and vitamin D supplementation. The patient?s past medical history includes shoulder surgeries in 2018 (right) and 2022 (left), and removal of an ovary. She reports ongoing post-operative dry eye discomfort from a previous surgery earlier this year. Her gastroesophageal reflux disease is currently managed with omeprazole and occasional use of carafate. There is a family history of colon cancer in her brother diagnosed in his mid- sixties, while both parents are from unspecified causes. - Annual physical examination completed. - Patient?s vaccinations reviewed; RSV a nd shingles vaccinations recommended, available from pharmacy. - Tetanus vaccination received in 2018, next due in 2027. - Scheduled for pneumococcal vaccination after her next birthday when she turns 65. - Recent mammography conducted last johny h, results normal. - Colonoscopy and Pap smear done last ye with findings of a tubular adenoma, follow-up colonoscopy advised in 2028. - Bone densitometry conducted in 2022 sh owing osteopenia, treatment with calcium and vitamin D. - Counseling provided on intermittent fa sting as part of weight management. [facility] Medical History Tubular adenoma of colon Injury of left rotator cuff Anxiety Depression GERD (gastroesophageal reflux disease) Helicobacter pylori (H. pylori) Osteoarthritis Essential (primary) hypertension BPPV (benign paroxysmal positional vertigo) Surgical History History of ptosis repair H/O unilateral oophorectomy Hx of shoulder surgery Hx of colonoscopy Family History (Updated 03/18/25 @ 09:44 by Jeni Rajan MD) Father Alcoholism Substance use disorder Mother Arthritis Brother Colon cancer, Onset Age: 65 Social History Housing: Apartment Are you a primary physician assistant primary care to a significant other at home: No Do you presently have visiting nurse or other home services: No Alcohol intake: never Patient Tobacco Use Status: Never used Tobacco e-Cigarette/Vaping Use: Never Used Second Hand Smoke Exposure: No service: No Current occupational status: disabled Current occupation: rt hand Sexual orientation: Straight/Heterosexual Gender identity: Female Cognitive needs: No Hearing needs: No Vision needs: Yes (glasses) Questionnaire PHQ-9 Over the last 2 weeks, how often have you been bothered by any of the following problems? 1. Little interest or pleasure in doing things: several days 2. Feeling down, depressed, or hopeless: several days 3. Trouble falling or staying asleep, or sleeping too much: several days 4. Feeling tired or having little energy: several days 5. Poor appetite or overeating: not at all 6. Feeling bad about yourself - or that you are a failure or have let yourself or your family down: not at all 7. Trouble concentrating on things, such as reading the newspaper or watching television: not at all 8. Moving or speaking so slowly that other people could have noticed. Or the opposite - being so fidgety or restless that you have been moving around a lot more than usual: not at all 9. Thoughts that you would be better off or of hurting yourself in some way: not at all Total score: 4 Depression Screening Interpretation: Positive Depression Screening Follow-up: Existing condition, In treatment, Community Mental Health Worker F/U and Follow- up Visit Requested Depression Screening Done: Yes 19254 - PHQ-9 Billing: Yes Source: Developed by Drs. Jun Vasques, Rima Vázquez, Christiano Olivier and colleagues, with an educational tawanna from [employer]. Thrive Questionnaire Date Thrive assessed: 03/18/25 I am a: Patient What is your living situation today?: I have a steady place to live Within the past 12 months, did the food you bought not last and you didn't have the money to get more?: I choose not to answer this question Within the past 12 months, did you worry whether your food would run out before you got money to buy more?: Never true Do you have trouble paying for medicines?: No Do you have trouble getting transportation to medical appointments?: No Do you have trouble paying your heating and electricity bill?: No Do you have trouble taking care of your child, family member or friend?: No Do you have trouble with day-to-day activities such as bathing, preparing meals, shopping, managing finances, etc.?: No Are you currently unemployed and looking for a job?: No Are you interested in more education?: No Please select the resources that you would like help with: None Currently or been in a relationship where the following occur: I choose not to answer THRIVE Score: 0 AUDIT C Alcohol Use Questionnaire (AUDIT-C) 1. How often do you have a drink containing alcohol?: Never 3. How often do you have six or more drinks on one occasion?: Never Total Score: 0 Score Reviewed/Action Taken: No PARIS-7 AMB Questionnaire PARIS-7 Date PARIS - 7 assessed: 03/18/25 Feeling nervous, anxious, or on edge: 1 = Several days Not being able to stop or control worryin = Not at all Worrying too much about different things: 1 = Several days Trouble relaxin = Not at all Being so restless that it is hard to sit still: 0 = Not at all Becoming easily annoyed or irritable: 0 = Not at all Feeling afraid as if something awful might happen: 0 = Not at all Total PARIS-7 score (0-4 normal; 5-9 mild; 10-14 moderate; 15-21 severe): 2 Source: Developed by Drs. Jun Vasques, Rima Vázquez, Christiano Olivier and colleagues, with an educational tawanna from [employer]. PARIS-7 Assessment Billing PARIS-7 Assessment Tool: PARIS-7 Assessment 43576 Review of Systems Const All systems reviewed & are unremarkable except as noted in HPI and below Card Denies chest pain at rest, Denies chest pain with activity, Denies edema, Denies irregular heart rhythm, Denies claudication, Denies dyspnea, Denies dyspnea on exertion, Denies orthopnea, Denies paroxysmal nocturnal dyspnea and Denies slow heart rate Resp Denies cough, Denies dyspnea and Denies dyspnea on exertion GI Denies abdominal pain, Denies change in bowel habits, Denies excessive flatus, Denies nausea and Denies vomiting Neuro Denies lack of coordination Physical exam (Primary Care) Vital Signs: Last Vital Signs Pulse 76 03/18/25 09:20 BP 118/80 03/18/25 09:20 Pulse Ox 98 03/18/25 09:20 Oxygen Delivery Method Room Air 03/18/25 09:20 BMI result Body Mass Index 35.4 BMI Assessment/Plan discussion: High BMI High, discussed plan: lifestyle, weight reduction, dietary and physical activity Tobacco/Smoking Status: Tobacco use Status Tobacco use date assessed 03/18/25 03/18/25 09:28 Patient Tobacco Use Status Never used Tobacco 03/18/25 09:28 e-Cigarette/Vaping Use Never Used 03/18/25 09:28 PHQ-9: PHQ-9 Score PHQ-9: Total score 4 03/18/25 09:28 Depression Screening Interpretation: Positive Depression Screening Follow-up: Existing condition, In treatment, Community Mental Health Worker F/U and Follow- up Visit Requested Thrive Assessment: Date of Thrive Assessment Date Thrive assessed 03/18/25 03/18/25 09:28 Currently or been in a relationship where the following occur: I choose not to answer HENMT Head: Yes normal to inspection, Yes normocephalic and Yes atraumatic Ears: external ears normal Eyes General: appearance normal, both eyes and all related structures Eyelids: Yes eyelids normal Conjunctivae: conjunctivae normal Neck Neck: Yes normal visual inspection and Yes supple Resp Effort & Inspection: normal respiratory effort Auscultation: clear to auscultation bilaterally Cardio Jugular venous distension: no JVD Rate: regular rate Rhythm: regular rhythm Heart sounds: S1 normal heart sound present and S2 normal heart sound present GI Inspection: Yes normal to inspection Palpation (GI): Soft to palpation and nontender Auscultation: normal bowel sounds Skin General skin exam: no rashes or lesions noted Neuro General: no focal motor deficits Extrem General: Yes full ROM Psych Appearance: grossly normal Coding Level of Care Code Est Pt Prev Care 40-64y(58299) Diagnoses Physical exam Z00.00 Mild recurrent major depression F33.0 Additional Codes PHQ-9 - 60328 - PHQ-9 Billing: Yes ([id number]) PARIS-7 Assessment Billing - PARIS-7 Assessment Tool: PARIS-7 Assessment 63509 ([id number]) Time Spent (min) 32 Assessment & Plan Assessment & Plan (1) Physical exam: Code(s): Z00.00 - Encounter for general adult medical examination without abnormal findings Category: Medical (2) Mild recurrent major depression: Code(s): F33.0 - Major depressive disorder, recurrent, mild Category: Medical Plan Current management of hypertension with diltiazem and losartan is adequate. Efforts to maintain osteopenia through calcium and vitamin D supplementation are ongoing. Depression and anxiety continue to be managed with escitalopram with necessary refills facilitated during this visit. Health maintenance includes RSV and shingles vaccinations from the pharmacy, and continuation with omeprazole and carafate for GERD management. Emphasis is placed on dietary management th rough intermittent fasting to maintain weight. The patient has been advised to seek further evaluation if the post-operative eye symptoms do not improve. Patient was informed and verbally consented to the use of an ambient scribe for clinic note documentation during this visit. I discussed with the patient the importance of controlling hypertension through current medications. We reviewed the findings from her recent mammography and colonoscopy, emphasizing the importance of continued screening. We addressed her osteopenia, ensuring understanding of the need for calcium and vitamin D suppl ementation. Refill arrangements for escitalopram and gabapentin were confirmed. I advised the patient to collect RSV and shingles vaccinations from the pharmacy and noted the plan for pneumococcal vaccination at her next visit post 65th birthday. We discussed managing GERD with her current medications and dietary management through intermittent fasting, noting the patient's progress and weight management goals. Follow-up for persistent post-operative dry eye symptoms was suggested if conditions continue. Orders: Orders XR DEXA axial skeleton Today Z78.0 - Asymptomatic menopausal state Medications: Changed From gabapentin 300 mg PO BID 60 caps 0RF To gabapentin 300 mg PO BID 30 days 60 caps 2RF From escitalopram oxalate 10 mg PO DAILY 90 tabs 0RF To escitalopram oxalate 10 mg PO DAILY 90 days 90 tabs 1RF Patient Instructions: - supervisor whipped topping RSV and shingles vaccines at the pharmacy as soon as possible. - Continue taking blood pressure medications as prescribed. - Ensure calcium and vitamin D intake daily for bone health. - Maintain current therapy for depression and anxiety, refills provided. - Manage GERD with omeprazole and carafate as needed. - Follow intermittent fasting plan for weight management. - Monitor post-operative eye symptoms and seek further care if persistent discomfort. - Schedule pneumococcal vaccine after turning 65. - Return for routine screening and follow-ups as discussed.
--- OUTSIDE RECORDS SUMMARY | 2025-03-18 10:12 | XMS_ITS | Encounter Summary ---
Author Organization [facility] Address [address] [place] [address] Care Team Providers Care Studio Owner Name Role Phone Delphine Zamora MD Primary Care Provider Dixon pina Encounter Details Date Type Department Care Team Description 06/14/2018 Collarette Separator Report Medical Records [address] [place] [address] Orthopedics, [address] [place] [address] Social History Tobacco Use Types Packs/Day Years [...] on filedocumented in this encounter Care Teams Studio Owner Relationship Specialty Start Date End Date Delphine Zamora MD PCP - General Internal Medicine 09/28/11 documented as of this encounter
--- OUTSIDE RECORDS SUMMARY | 2025-03-18 10:12 | XMS_ITS | Encounter Summary ---
Author Organization [facility] Address [address] [place] [address] Care Team Providers Care Technology Training Associate Name Role Phone Delphine Zamora MD Primary Care Provider Dixon pina Reason for Visit * Reason Onset Date Comments Testing 10/11/2016 Encounter Details Date Type Department Care Team Description 10/11/2016 Telephone Radiology - [address] [id number] Aarti Dempsey MD [address] [place] [phone] Testing Social History Tobacco Use Types Packs/Day [...] on filedocumented in this encounter Care Teams Technology Training Associate Relationship Specialty Start Date End Date Delphine Zamora MD PCP - General Internal Medicine 09/28/11 documented as of this encounter
--- OUTSIDE RECORDS SUMMARY | 2025-03-18 10:12 | XMS_ITS | Encounter Summary ---
Author Organization [email or web address] [facility] Address [address] [place] [address] Care Team Providers Care It Infrastructure Consultant Name Role Phone Delphine Zamora MD Primary Care Provider Dixon pina Encounter Details Date Type Department Care Team Description 12/05/2016 [facility] Medical Records [address] [place] [address] Abstract, Provider Social History Tobacco Use Types [...] on filedocumented in this encounter Care Teams It Infrastructure Consultant Relationship Specialty Start Date End Date Delphine Zamora MD PCP - General Internal Medicine 09/28/11 documented as of this encounter
--- OUTSIDE RECORDS SUMMARY | 2025-03-18 10:13 | XMS_ITS | Encounter Summary ---
Author Organization [employer] [facility] Address [address] [place] [address] Care Team Providers Care Hay Stacker Name Role Phone Delphine Zamora MD Primary Care Provider Dixon pina Encounter Details Date Type Department Care Team Description 10/01/2018 Release of Information Medical Records [address] [place] [id number] Abstract, Provider Social History Tobacco Use Types [...] on filedocumented in this encounter Care Teams Hay Stacker Relationship Specialty Start Date End Date Delphine Zamora MD PCP - General Internal Medicine 09/28/11 documented as of this encounter
--- OUTSIDE RECORDS SUMMARY | 2025-03-18 10:13 | XMS_ITS | Encounter Summary ---
Author Organization [employer] [facility] Address [address] [facility] 7t [place] [address] Care Team Providers Care Talent Scout Name Role Phone Unavailable Primary Care Provider [...]
--- OUTSIDE RECORDS SUMMARY | 2025-03-18 10:13 | XMS_ITS | Clinical Summary ---
Author Organization [employer] Address [address] [facility] [address] [place] [address] Care Team Providers Care Senior Engineering Technician Name Role Phone Unavailable Primary Care Provider Unavailabl e Allergies No known active allergies Medications diclofenac (Voltaren) 75 MG EC tablet Take 75 mg by mouth 2 times daily. 3 Active ergocalciferol (Vitamin D2) 1.25 MG (62347 UT) capsule Take 1 capsule by mouth [...] Most Recently Relevant to Health Maintenance Insurance [facility] MEDICAID STAND ADULT
--- OUTSIDE RECORDS SUMMARY | 2025-03-18 10:13 | XMS_ITS | Encounter Summary ---
Author Organization [facility] Address [address] [place] [address] Care Team Providers Care Garnett Mechanic Name Role Phone Daniel Sethi MD Primary Care Provider [phone] Annette Jeong MD Primary Care Provider [facility], Pcp Primary Care Provider [facility] Víctor Kinsey Primary Care Provider [phone] Delphine Zamora MD Primary Care Provider Dixon pina Encounter Details Date Type Department Care Team Description 05/31/2005 Orders Only Medical [address] [place], [place] [phone] Víctor Kinsey [address] [place], [place] [id number] ROUTINE GENERAL MEDICAL EXAMINATION AT A HEALTH [...] SINGLE ASSAY (05/31/2005 10:33 AM EDT) Pathologist [facility] HIV 1&2 ANTIBODY SCREEN NEGATIVE NEGATIVE [facility] 05/31/2005 10:3 3 AM EDT 05/31/2005 10:34 AM EDT [facility] Performing Organization Address [facility] Co de Phone Number [facility] * (ABNORMAL) CBC WITHOUT DIFF (05/31/2005 10:33 AM EDT) Pathologist [facility] WHITE BLOOD COUNT 6.3 4.8 - 10.8 x10-3 [facility] RED BLOOD COUNT 4.5 3.8 - 4.8 x10-6 [facility] Hemoglobin 12.9 12.0 - 15.0 g/dL [facility] Hematocrit 40.4 36 - 46 % [facility] CORPUSCULAR VOLUME 90.4 79 - 98 fl [facility]PUSCULAR HEMOGLOBIN 28.9 27 - 32 pg [facility] HGB CONC 31.9(L) 32 - 37 g/dl [facility] RED CELL DISTRIBUTION WIDTH 14.2 11 - 15 % [facility] PLT COUNT 282 130 - 400 x10-3 [facility] 05/31/2005 10:3 3 AM EDT 05/31/2005 10:34 AM EDT [facility] Performing Organization Address [facility]/ZIP Co de Phone Number [facility] * (ABNORMAL) BASIC METABOLIC PANEL (05/31/2005 10:33 AM EDT) Pathologist [facility] GLUCOSE 83 70 - 110 mg/dL [facility] Blood Urea Nitrogen 14 5 - 25 mg/dL [facility] creatinine 0.6(L) 0.7 - 1.5 mg/dL [facility] [...] Primary documented in this encounter Care Teams Garnett Mechanic Relationship Specialty Start Date End Date Daniel Sethi MD [address] [place] [address] PCP - General 02/28/11 09/27/11 Victoria-Annette Yip MD PCP - General 07/03/06 [facility] Pcp PCP - General 07/02/06 07/02/06 Víctor Kinsey [address] [place] [address] PCP - General 03/29/05 07/01/06 Delphine Zamora MD [address] [place] [address] PCP - General Internal Medicine 09/28/11 documented as of this encounter
--- OUTSIDE RECORDS SUMMARY | 2025-03-18 10:13 | XMS_ITS | Encounter Summary ---
Author Organization [facility] Address [address] [place] [address] Care Team Providers Care Management Trainer Name Role Phone Delphine Zamora MD Primary Care Provider Dixon pina Encounter Details Date Type Department Care Team Description 11/25/2015 [facility] Report Medical Records [address] [place] [address] Abstract, Provider Social History Tobacco Use Types [...] on filedocumented in this encounter Care Teams Management Trainer Relationship Specialty Start Date End Date Delphine Zamora MD PCP - General Internal Medicine 09/28/11 documented as of this encounter
--- OUTSIDE RECORDS SUMMARY | 2025-03-18 10:13 | XMS_ITS | Encounter Summary ---
Author Organization [employer] [facility] Address [address] [place] [address] Care Team Providers Care Bushel Girl Name Role Phone Delphine Zamora MD Primary Care Provider Dixon pina Encounter Details Date Type Department Care Team Description 12/29/2011 Night Triage Doc Medical Records [address] [place] [address] Abstract, Provider Social History Tobacco Use Types [...] on filedocumented in this encounter Care Teams Bushel Girl Relationship Specialty Start Date End Date Delphine Zamora MD PCP - General Internal Medicine 09/28/11 documented as of this encounter
--- OUTSIDE RECORDS SUMMARY | 2025-03-18 10:13 | XMS_ITS | Data Portability ---
Author Organization [facility] Address [address] [place] [id number] Care Team Providers Care Video Recorder Mechanic Name Role Phone Unavailable Human Resources Director [phone] ORIN MARTINEZ Referring Provider [phone] Assessment Encounter Date Assessment Date Assessment LastModified [...] By Organization Details Last Modified Time 04/30/2019 [id number] Device provided has good fit and function. [...] 9 BI Procedures completed Joel Farhan [facility] 04/30/2019 16:32:27 Imaging Results None recorded. [...] SNOMED-CT Code Diagnosis ICD10 Code Diagnosis Note [id number] Joel Farhan [facility] [address] [place] [address] 04/30/2019 16:01:51 05/01/2019 22:48:53 Sprain of shoulder [id number] S43.429A Health Concerns Section Related Observation LastModified [...] in [place] PACU Phase1, post op. ANNELISE Knig [facility] [facility] 04/30/2019 16:32:53 OBGyn Episode No OBEpisode recorded.
--- OUTSIDE RECORDS SUMMARY | 2025-03-18 10:13 | XMS_ITS | Encounter Summary ---
Author Organization [employer] [facility] Address [address] [facility] [address] [place] [address] Care Team Providers Care Utilization Supervisor Name Role Phone Unavailable Primary Care [...]
--- OUTSIDE RECORDS SUMMARY | 2025-03-18 10:13 | XMS_ITS | Encounter Summary ---
Author Organization [facility] Address [address] [facility] [address] [place] [address] Care Team Providers Care Chemistry Physics Teacher Name Role Phone Unavailable Primary Care Provider [...]
--- OUTSIDE RECORDS SUMMARY | 2025-03-18 10:13 | XMS_ITS | Encounter Summary ---
Author Organization [facility] Address [address] [place] [address] Care Team Providers Care Partner Manager Name Role Phone Delphine Zamora MD Primary Care Provider Dixon pina Encounter Details Date Type Department Care Team Description 08/24/2023 Telephone [facility] Medical [facility] [address] [facility] [address] [place] [phone] José Manuel Alberts DPM Social History Tobacco Use Types Packs/Day Years Used Date Smoking Tobacco: Never Smokeless Tobacco: Never Alcohol Use Standard Drinks/Week Comments Yes 0 (1 standard drink = 0.6 oz pur e alcohol) 2-3 beer/month Sex Assigned at Date Recorded Not on file documented as of this encounter Miscellaneous Notes * Telephone Encounter - Nia Hernandez - 08/24/2023 9:25 AM EDT MARCELA Pineda Disability, called on status of request for medical records documented in this encounter Plan of Treatment Not on file documented as of this encounter Visit Diagnoses Not on filedocumented in this encounter Care Teams Partner Manager Relationship Specialty Start Date End Date Delphine Zamora MD PCP - General Internal Medicine 09/28/11 documented as of this encounter
== END 2025-03-18 09:53 | disposition home or self-care (01) ==
LOC: HO.HMCH 09:19
PROVIDERS: PCP Internal Medicine; Visit Provider Internal Medicine
DX: Z00.00 Encounter for general adult medical examination without abnormal findings (principal); F33.0 Major depressive disorder, recurrent, mild

== ENCOUNTER → 2025-03-18 09:18 | Outpatient (BNVA) | payer OTHER, SELFPAY | PROVIDERS: PCP Internal Medicine; Visit Provider Internal Medicine | DX: Z00.00 Encounter for general adult medical examination without abnormal findings (principal); F33.0 Major depressive disorder, recurrent, mild; I10 Essential (primary) hypertension; Z79.899 Other long term (current) drug therapy | CPT/HCPCS: 96127; 99396 ==

== ENCOUNTER 2025-05-20 08:47 | Outpatient (AMB) | payer OTHER, SELFPAY ==
--- NOTE | 2025-05-20 08:50 | A.OFFPC_ITS ---
Vital Signs 05/20/25 08:51 Height 5 ft Weight 176 lb 8 oz BMI 34.5 BP 130/66 Blood Pressure Location Lt brachial Position Sitting Pulse 77 Pulse Source Pulse Oximeter Temp 97.3 F Temp Source Temporal Artery Scan Pulse Oximetry (%) 97 Oxygen Delivery Method Room Air Intake Visit Reasons: B/L feet swelling, ?BP med side effects Intake Note: Patient is here to follow up on Bilateral feet swelling, lower back pain. Complaint of right big toe pain. 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 Finisher: Not Required per policy Accompanied by: Self / Same As Patient Allergies No Known Allergies Allergy (Verified 05/20/25 09:02) Medication List - Last Reconciled 05/20/25 by Piedad Flores PA-C calcium carbonate 600 mg PO BID 90 days diclofenac sodium 75 mg PO BID diltiazem HCl ER 60 mg PO BID 90 days ergocalciferol (vitamin D2) 1,250 mcg PO QWEEK escitalopram oxalate 10 mg PO DAILY 90 days gabapentin 300 mg PO BID 30 days losartan 100 mg PO DAILY 90 days omeprazole 40 mg PO DAILY polyethylene glycol 3350 (Miralax) 17 grams PO DAILY sennosides (Natural Senna Laxative) 8.6 mg PO BEDTIME simethicone (Gas Relief (simethicone)) 80 mg PO TID-QID PRN sucralfate 1 g PO BEDTIME Tobacco use date assessed: 05/20/25 Fall risk assessment: No Falls in past year Last assessed Fall Risk: 05/20/25 Dental Screening Dental Screen Date: 03/18/25 HPI B/L feet swelling, ?BP med side effects HPI Details 64-year-old female with past medical his tory of hypertension, BPPV, obesity, depression, anxiety, GERD last seen by Dr. Mosqueda 02/2025 coming in for acute problem. Presenting with swelling in the legs and pain in the toenail and back. The swelling in the legs began approximately three weeks ago and is associated with pain after walking. The patient has been taking diltiazem for hypertension, but the swelling persisted despite a temporary discontinuation of the medication. Swelling typically starts later in the day and denies claudication symptoms. The patient reports pain in the toenail, which she attributes to an ingrown nail. There is no visible infection or redness. The back pain started five days ago without any known injury and is exacerbated by sitting and lying on the affected side. Walking and stretching provide relief. FORMERLY [facility], [facility] Medical History Tubular adenoma of colon Injury of left rotator cuff Anxiety Depression GERD (gastroesophageal reflux disease) Helicobacter pylori (H. pylori) Osteoarthritis Essential (primary) hypertension BPPV (benign paroxysmal positional vertigo) Surgical History History of ptosis repair H/O unilateral oophorectomy Hx of shoulder surgery Hx of colonoscopy Family History Father Alcoholism Substance use disorder Mother Arthritis Brother Colon cancer, Onset Age: 65 Social History Housing: Apartment Are you a primary wild animal caretaker to a significant other at home: No Do you presently have visiting nurse or other home services: No Alcohol intake: never Patient Tobacco Use Status: Never used Tobacco e-Cigarette/Vaping Use: Never Used Second Hand Smoke Exposure: No service: No Current occupational status: disabled Current occupation: rt hand Sexual orientation: Straight/Heterosexual Gender identity: Female Cognitive needs: No Hearing needs: No Vision needs: Yes (glasses) Questionnaire Thrive Questionnaire Date Thrive assessed: 03/16/25 I am a: Patient What is your living situation today?: I have a steady place to live Within the past 12 months, did the food you bought not last and you didn't have the money to get more?: I choose not to answer this question Within the past 12 months, did you worry whether your food would run out before you got money to buy more?: Never true Do you have trouble paying for medicines?: No Do you have trouble getting transportation to medical appointments?: No Do you have trouble paying your heating and electricity bill?: No Do you have trouble taking care of your child, family member or friend?: No Do you have trouble with day-to-day activities such as bathing, preparing meals, shopping, managing finances, etc.?: No Are you currently unemployed and looking for a job?: No Are you interested in more education?: No Please select the resources that you would like help with: None Currently or been in a relationship where the following occur: I choose not to answer THRIVE Score: 0 AUDIT C Alcohol Use Questionnaire (AUDIT-C) 3. How often do you have six or more drinks on one occasion?: Never Total Score: 0 PARIS-7 AMB Questionnaire PARIS-7 Date PARIS - 7 assessed: 03/18/25 Source: Developed by Drs. Jun Vasques, Rima Vázquez, Christiano Olivier and colleagues, with an educational tawanna from [employer]. Review of Systems Const Denies body aches, Denies chills, Denies fever(s), Denies headache(s) and Denies poor appetite Eyes Reports no additional complaints ENT Denies dizziness and Denies headache(s) Card Denies chest pain, Denies lightheadedness and Denies dyspnea Resp Denies cough and Denies dyspnea GI Denies abdominal pain, Denies nausea and Denies vomiting Reports no additional complaints Musc Reports no additional complaints and Denies abnormal gait Skin/Breast Reports system reviewed and no additional complaints, except as documented Neuro Denies abnormal gait, Denies dizziness and Denies headache(s) Psych Reports no additional complaints Physical exam (Primary Care) Vital Signs: Last Vital Signs Temp 97.3 F 05/20/25 08:51 Pulse 77 05/20/25 08:51 BP 130/66 05/20/25 08:51 Pulse Ox 97 05/20/25 08:51 Oxygen Delivery Method Room Air 05/20/25 08:51 BMI result Body Mass Index 34.5 Tobacco/Smoking Status: Tobacco use Status Tobacco use date assessed 05/20/25 05/20/25 08:57 Patient Tobacco Use Status Never used Tobacco 05/20/25 08:57 e-Cigarette/Vaping Use Never Used 05/20/25 08:57 Thrive Assessment: Date of Thrive Assessment Date Thrive assessed 03/16/25 05/20/25 08:57 Currently or been in a relationship where the following occur: I choose not to answer Const General: cooperative, healthy appearing, comfortable and no acute distress Orientation/consciousness: patient oriented x3 HENMT Head: Yes normocephalic Ears: hearing grossly normal bilaterally General nose exam: Normal external nose present Eyes General: appearance normal, both eyes and all related structures Conjunctivae: conjunctivae normal Neck Neck: Yes full ROM and Yes no lymphadenopathy Resp Effort & Inspection: normal respiratory effort Auscultation: clear to auscultation bilaterally, no crackles, no rales, no rhonchi and no wheezes Cardio Rate: regular rate Rhythm: regular rhythm Back/Spine/Pelvis Other: No tenderness to palpation over entirety of spine. Very mild tenderness to palpation over left paraspinal muscles Skin Other: Right great toe ingrown toenail without evidence of paronychia General skin exam: no rashes or lesions noted Neuro General: patient oriented x3 Gait exam (Neuro): Normal gait present Extrem Other: No tenderness to palpation over bilateral calves. No calf or leg swelling, tenderness, erythema or warmth. Intact strength, sensation, pulses in bilateral lower extremities. General: Yes normal to inspection, Yes full ROM and No edema Psych Affect: normal affect Attitude: cooperative Insight: Good insight present (Psych) Judgement: Good judgement present (Psych) Coding Level of Care Code Est Pt Level 3 (04856) Diagnoses Essential (primary) hypertension I10 Obesity (BMI 30.0-34.9) E66.9 Ingrown toenail L60.0 Leg swelling M79.89 Low back pain M54.50 Assessment & Plan Assessment & Plan (1) Essential (primary) hypertension: Code(s): I10 - Essential (primary) hypertension Category: Medical Plan: Continue on current blood pressure medication. Avoid salt intake and encourage healthy diet and regular exercise. At this time no change in blood pressure medications as I do not believe the Diltazem is responsible for the leg swelling. (2) Obesity (BMI 30.0-34.9): Code(s): E66.9 - Obesity, unspecified Category: Medical Plan: Healthy diet and regular exercise is encouraged. (3) Ingrown toenail: Code(s): L60.0 - Ingrowing nail Category: Medical Plan: Referral was placed to Podiatry at patient request. No evidence of infection on exam today. (4) Leg swelling: Code(s): M79.89 - Other specified soft tissue disorders Category: Medical Plan: Patient complaining of bilateral leg swelling that began about 3 weeks ago and comes and goes throughout the day. She states the swelling we will typically worsen throughout the day and she does occasionally elevate her legs. She did discontinue the diltiazem for a short period and leg swelling did not improve. She has since resumed the diltiazem and no worsening of symptoms. On exam today there is no edema in bilateral lower extremities, no redness or warmth and low suspicion for DVT at this time. Plan to continue diltiazem as I do not believe this is related to her leg swelling. Compression stockings, leg elevation and exercise as tolerated are recommended. (5) Low back pain: Code(s): M54.50 - Low back pain, unspecified Category: Medical Plan: Patient complaining of mild left-sided low back pain that began last week. Denies any inciting injury or event and denies any urinary or fecal incontinence. She does not have any radiation down the left leg. On exam mild tenderness to palpation over left paraspinal muscles otherwise benign exam. Recommend to continue on current medication with the addition of lidocaine patches and gentle stretching. Plan The management plan for the patient's peripheral edema involves increasing physical activity to enhance muscle strength and venous return. Compression stockings will be prescribed to assist in managing the swelling, and the patient is encouraged to elevate her legs to reduce symptoms. A referral to a central sterile technician will be arranged for the onychocryptosis to address the ingrown toenail. Alternative options will be considered if the current referral lacks availability. For the muscle strain, the patient will perform gentle stretching exercises and use lidocaine patches for pain relief. Gabapentin and diclofenac are recommended for pain management as needed. This note was constructed using voice recognition software. While every effort has been made to ensure accuracy and jersey knitter, still areas may have been included sometimes these areas may affect the content or meeting of the given symptoms. Total time spent caring for the patient today was 20 minutes. This includes time spent before the visit reviewing the chart, time spent during the visit, and time spent after the visit and documentation. Patient was informed and verbally consented to the use of an ambient scribe for clinic note documentation during this visit. Orders: Referrals Podiatry Referral L60.0 - Ingrowing nail Medications: New lidocaine 5% leave on most painful area for up to 12 hrs 1 patch topical DAILY 30 ea 0RF compr.stocking,knee,long,large As directed; 10-20 mmHg 12 ea 0RF
[2025-05-20 08:51] VITALS: BP 130/66; PULSE 77; TEMP 36.3; O2SAT 97; BMI 34.5
--- OUTSIDE RECORDS SUMMARY | 2025-05-20 09:18 | XMS_ITS | Encounter Summary ---
Author Organization [employer] [facility] Address [address] [place] [address] Care Team Providers Care Silver Wrapper Name Role Phone Delphine Zamora MD Primary Care Provider Dixon pina Encounter Details Date Type Department Care Team Description 01/10/2016 Controlled Substance Contract with Plan Medical Records [address] [place] [id number] Abstract, Provider Social History Tobacco Use Types [...] on filedocumented in this encounter Care Teams Silver Wrapper Relationship Specialty Start Date End Date Delphine Zamora MD PCP - General Internal Medicine 09/28/11 documented as of this encounter
== END 2025-05-20 09:32 | disposition home or self-care (01) ==
LOC: HO.HMCH 08:48
PROVIDERS: PCP Internal Medicine
DX: I10 Essential (primary) hypertension (principal); E66.9 Obesity, unspecified; Z68.34 Body mass index [BMI] 34.0-34.9, adult; L60.0 Ingrowing nail; M79.89 Other specified soft tissue disorders; M54.50 Low back pain, unspecified

== ENCOUNTER → 2025-05-20 08:47 | Outpatient (BNVA) | payer OTHER, SELFPAY | PROVIDERS: PCP Internal Medicine | DX: I10 Essential (primary) hypertension (principal); F32.A Depression, unspecified; F41.9 Anxiety disorder, unspecified; K21.9 Gastro-esophageal reflux disease without esophagitis; L60.0 Ingrowing nail; M79.89 Other specified soft tissue disorders; M54.50 Low back pain, unspecified; E66.9 Obesity, unspecified; Z68.34 Body mass index [BMI] 34.0-34.9, adult | CPT/HCPCS: 99212 ==

== ENCOUNTER 2025-09-02 09:52 | Outpatient (REF) | payer MEDICARE, SELFPAY ==
--- NOTE | ~2025-09-02 | MM_ITS ---
EXAMINATION: DXA BONE DENSITY AXIAL HISTORY: Z78.0 - Asymptomatic menopausal state TECHNIQUE: TXCOM Dual energy absorptiometry (DEXA) of the lumbar spine, total left hip, and femoral neck was performed. COMPARISON: Comparison is made with the prior examination dated 07/20/2023. FINDINGS: The bone mineral density of the lumbar spine is 0.961 g/cm2, corresponding to a T-score of -2.0, and a Z-score of -0.8. This is indicative of osteopenia. This represents a BMD change of 4.6% compared to the prior exam. This is statistically significant. The bone mineral density of the left total hip is 0.881 g/cm2, corresponding to a T-score of -1.0, and a Z-score of -0.1. This is indicative of normal bone mineral density. This represents a BMD change of -3.0% compared to the prior exam. This is not statistically significant. The bone mineral density of the left femoral neck is 0.851 g/cm2, corresponding to a T-score of -1.3, and a Z-score of -0.2. This is indicative of osteopenia. This represents a BMD change of -1.5% compared to the prior exam. FRACTURE RISK: The FRAX index suggests a ten year probability of major osteoporotic fracture of 4.5%, and of hip fracture 0.4%. MM/XR DEXA axial skeleton IMPRESSION: Based on bone mineral density, and according to World Health Organization (WHO) criteria, the diagnosis is consistent with osteopenia. Statistically, 68% of repeat scans fall within 1 SD (+/- 0.010 g/cm2 for AP spine L1-L4) and 1 SD (+/- 0.012 g/cm2 for femur total) FRAX is a trademark of the [employer]'s [employer] [facility] [employer], a World Health Organization (WHO) Collaborating Center. Electronically signed by: Jun Pitts MD 09/02/2025 10:41 AM EDT
== END 2025-09-02 09:53 | disposition home or self-care (01) ==
LOC: HO.MAMMO 09:52
PROVIDERS: PCP Internal Medicine; Visit Provider Internal Medicine
DX: Z13.820 Encounter for screening for osteoporosis (principal); Z78.0 Asymptomatic menopausal state
CPT/HCPCS: 77080

== ENCOUNTER → 2025-09-02 10:00 | Outpatient (BNV) | payer MEDICARE, SELFPAY | PROVIDERS: PCP Internal Medicine; Visit Provider Radiology Diagnostic Radiology | DX: E28.39 Other primary ovarian failure (principal) | CPT/HCPCS: 77080 ==

== ENCOUNTER 2025-09-09 14:36 | Outpatient (AMB) | payer MEDICARE, SELFPAY ==
--- NOTE | 2025-09-09 14:56 | MHC.PC.OV ---
Vital Signs 09/09/25 14:57 Height 5 ft Weight 173 lb 4 oz BMI 33.8 BP 126/84 Blood Pressure Location Lt brachial Position Sitting Pulse 83 Pulse Source Pulse Oximeter Pulse Oximetry (%) 99 Oxygen Delivery Method Room Air Intake Visit Reasons: annual exam Pet Counselor Required: No Accompanied by: Self / Same As Patient Allergies No Known Allergies Allergy (Verified 09/13/25 02:52) Medication List - Last Reconciled 09/09/25 by Elton Causey MD calcium carbonate 600 mg PO BID 90 days compr.stocking,knee,long,large As directed; 10-20 mmHg diclofenac sodium 75 mg PO BID diltiazem HCl ER 60 mg PO BID 90 days ergocalciferol (vitamin D2) 1,250 mcg PO QWEEK escitalopram oxalate 10 mg PO DAILY 90 days gabapentin 300 mg PO BID 30 days lidocaine 5% 1 patch topical DAILY losartan 100 mg PO DAILY 90 days omeprazole 40 mg PO DAILY polyethylene glycol 3350 (Gavilax) 17 grams PO DAILY sennosides (Natural Senna Laxative) 8.6 mg PO BEDTIME simethicone 80 mg PO TID-QID PRN sucralfate 1 g PO BEDTIME Tobacco use date assessed: 09/09/25 Fall risk assessment: 1 Fall in past year Last assessed Fall Risk: 09/09/25 Dental Screening Dental Screen Date: 09/09/25 Did you have a dental visit in the last 12 months?: Yes Did you have a dental problem in the last 6 months where you did not have access to dental care?: No Was dental information given to patient?: Patient has dentist HPI annual exam HPI Details Patient comes in today for her annual physical examination - her PCP is Dr. Mosqueda States that she feels okay She denies any headaches or dizziness Denies any chest pains, no increased SOB No nausea/vomiting, no abdominal pain No change in bowel habits noted She denies any acute urinary symptoms Needs a few of her Rx refilled She has no follow up labs done recently She appears to be up-to-date with all of her cancer screenings - had her screening colonoscopy done last year on 08/22/2024 and she was recommended to get a repeat colonoscopy in 5 years due to (+) tubular adenoma on pathology of one of the polyps removed during the procedure She had her annual mammogram done back on 02/12/25 and is scheduled for her yearly gynecology exam and pap smear in a couple of months on 11/03/2025 at the [facility] She had her repeat BMD done last week on 09/02/2025 [facility] Medical History Obesity (BMI 30-39.9) Tubular adenoma of colon Injury of left rotator cuff Anxiety Depression GERD (gastroesophageal reflux disease) Helicobacter pylori (H. pylori) Osteoarthritis Essential (primary) hypertension BPPV (benign paroxysmal positional vertigo) Surgical History History of ptosis repair H/O unilateral oophorectomy Hx of shoulder surgery Hx of colonoscopy Family History Father Alcoholism Substance use disorder Mother Arthritis Brother Colon cancer, Onset Age: 65 Social History Housing: Apartment Are you a primary patient care secretary to a significant other at home: No Do you presently have visiting nurse or other home services: No Alcohol intake: never Patient Tobacco Use Status: Never used Tobacco e-Cigarette/Vaping Use: Never Used Second Hand Smoke Exposure: No service: No Current occupational status: disabled Current occupation: rt hand Sexual orientation: Straight/Heterosexual Gender identity: Female Cognitive needs: No Hearing needs: No Vision needs: Yes (glasses) Questionnaire Thrive Questionnaire Date Thrive assessed: 03/16/25 I am a: Patient What is your living situation today?: I have a steady place to live Within the past 12 months, did the food you bought not last and you didn't have the money to get more?: I choose not to answer this question Within the past 12 months, did you worry whether your food would run out before you got money to buy more?: Never true Do you have trouble paying for medicines?: No Do you have trouble getting transportation to medical appointments?: No Do you have trouble paying your heating and electricity bill?: No Do you have trouble taking care of your child, family member or friend?: No Do you have trouble with day-to-day activities such as bathing, preparing meals, shopping, managing finances, etc.?: No Are you currently unemployed and looking for a job?: No Are you interested in more education?: No Please select the resources that you would like help with: None Currently or been in a relationship where the following occur: I choose not to answer THRIVE Score: 0 AUDIT C Alcohol Use Questionnaire (AUDIT-C) 1. How often do you have a drink containing alcohol?: Never 3. How often do you have six or more drinks on one occasion?: Never Total Score: 0 Score Reviewed/Action Taken: Yes PARIS-7 AMB Questionnaire PARIS-7 Date PARIS - 7 assessed: 03/18/25 Source: Developed by Drs. Jun Vasques, Rima Vázquez, Christiano Olivier and colleagues, with an educational tawanna from [employer]. Review of Systems Const Denies chills, Denies fatigue, Denies fever(s), Denies headache(s) and Denies malaise Eyes Denies blurry vision, Denies change in vision, Denies irritation and Denies itchy eyes ENT Denies dysphagia, Denies dizziness, Denies otalgia, Denies headache(s), Denies nasal congestion, Denies neck pain, Denies odynophagia, Denies sinus pain and Denies sore throat Card Denies chest pain, Denies rapid heart rate, Denies irregular heart rhythm, Denies palpitations and Denies dyspnea Resp Denies chest congestion, Denies cough, Denies dyspnea and Denies wheezing GI Denies abdominal pain, Denies bloating, Denies constipation, Denies dysphagia, Denies heartburn, Denies diarrhea, Denies nausea, Denies odynophagia and Denies vomiting Denies hematuria, Denies urinary frequency, Denies dysuria, Denies urinary incontinence and Denies urinary urgency Musc Denies back pain, Denies arthralgias, Denies joint swelling, Denies muscle weakness and Denies neck pain Skin/Breast Denies breast pain, Denies breast mass, Denies change in pigmentation, Denies lesions, Denies rash and Denies unusual bruising Neuro Denies dizziness, Denies headache(s) and Denies paresthesias Psych Denies anxiety and Denies depression Endo Denies fatigue and Denies palpitations Marco/Lymph Denies easy bruising Aller/Immun Denies itchy eyes and Denies wheezing Physical exam (Primary Care) Vital Signs: Last Vital Signs Pulse 83 09/09/25 14:57 BP 126/84 09/09/25 14:57 Pulse Ox 99 09/09/25 14:57 Oxygen Delivery Method Room Air 09/09/25 14:57 BMI result Body Mass Index 33.8 Tobacco/Smoking Status: Tobacco use Status Tobacco use date assessed 09/09/25 09/09/25 15:10 Patient Tobacco Use Status Never used Tobacco 09/09/25 15:10 e-Cigarette/Vaping Use Never Used 09/09/25 15:10 Thrive Assessment: Date of Thrive Assessment Date Thrive assessed 03/16/25 09/09/25 15:10 Currently or been in a relationship where the following occur: I choose not to answer Const General: no acute distress, alert and awake Orientation/consciousness: patient oriented x3 HENMT Head: Yes normocephalic and Yes atraumatic Ears: external ears normal, TM's normal bilaterally and EAC's normal General nose exam: No nasal discharge present Face and sinus: Yes normal facial exam and Yes sinuses nontender Teeth and gingiva: dentition normal Throat: Yes posterior oropharynx normal and Yes tonsils normal (no TP congestion) Eyes Eyelids: Yes eyelids normal Conjunctivae: conjunctivae normal Pupils: Equal, round and reactive pupils present EOM: EOMs intact bilaterally Neck Neck: Yes no lymphadenopathy and Yes supple Thyroid: Thyroid normal Resp Auscultation: clear to auscultation bilaterally, no rales and no wheezes Cardio Rate: regular rate Rhythm: regular rhythm Heart sounds: no murmurs GI Palpation (GI): Soft to palpation, nontender and No hepatosplenomegaly present Auscultation: normal bowel sounds General: Yes no CVA tenderness Back/Spine/Pelvis Back: no CVA tenderness Thoracic/Lumbar Spine: thoracic and lumbar spine normal to inspection Skin Lesions: no lesions Rashes: no rashes Neuro General: patient oriented x3, moves all extremities, no focal motor deficits and CN's II-XI intact bilaterally Cranial nerves: Yes Equal, round and reactive pupils present Cognition (Neuro): normal cognition Gait exam (Neuro): Normal gait present Extrem General: Yes no clubbing, cyanosis or edema Coding Level of Care Code Est Pt Prev Care >65y(66730) Diagnoses Annual physical exam Z00.00 Essential hypertension I10 Osteopenia, unspecified location M85.80 Osteopenia location: unspecified Vitamin D deficiency E55.9 Chronic GERD K21.9 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 Laterality: right Osteoarthritis location: shoulder Osteoarthritis type: other secondary Anxiety F41.9 Mild episode of recurrent major depressive disorder F33.0 Active/Remission status: currently active Depression Type: major depressive disorder Major depression episode severity: mild Major depression recurrence: recurrent Obesity (BMI 30-39.9) E66.9 Assessment & Plan Assessment & Plan (1) Annual physical exam: Code(s): Z00.00 - Encounter for general adult medical examination without abnormal findings Category: Medical Plan: Check labs OMAR to complete her annual exam today She is up-to-date with all of her cancer screenings - had her screening colonoscopy done last year on 08/22/2024 and she was recommended to get a repeat colonoscopy in 5 years due to (+) tubular adenoma on pathology of one of the polyps removed during the procedure She had her annual mammogram done back on 02/12/25 and is scheduled for her yearly gynecology exam and pap smear in a couple of months on 11/03/2025 at the [facility] She had her repeat BMD done last week on 09/02/2025 (2) Essential hypertension: Code(s): I10 - Essential (primary) hypertension Category: Medical Plan: Reinforced low sodium diet - goal is systolic BP of 120 to 130 mm or less Continue Losartan 100 mg QD and Diltiazem ER 60 mg BID (Rx refilled) Patient is reminded to continue monitoring her blood pressure regularly (3) Osteopenia: Code(s): M85.80 - Other specified disorders of bone density and structure, unspecified site Category: Medical Qualifiers: Osteopenia location: unspecified Qualified Code(s): M85.80 - Other specified disorders of bone density and structure, unspecified site Plan: Her BMD done last week showed (+) osteopenia Fall precautions reinforced Patient is advised to continue with her daily Vitamin D and Calcium intake and to try to exercise regularly as tolerated (4) Vitamin D deficiency: Code(s): E55.9 - Vitamin D deficiency, unspecified Category: Medical Plan: Continue Vitamin D2 1250 mcg once a week (5) Chronic GERD: Code(s): K21.9 - Gastro-esophageal reflux disease without esophagitis Category: Medical Plan: Dietary restrictions reinforced Continue Omeprazole 40 mg QD and Carafate 1 gm Q HS PRN Follow up with GI as scheduled (6) Osteoarthritis: Code(s): M19.90 - Unspecified osteoarthritis, unspecified site Category: Medical Qualifiers: Laterality: right Osteoarthritis location: shoulder Osteoarthritis type: other secondary Qualified Code(s): M19.211 - Secondary osteoarthritis, right shoulder Plan: Continue Diclofenac sodium 75 mg BID PRN with food, Gabapentin 300 mg BID and Lidocaine patches 5% QD PRN (7) Anxiety: Code(s): F41.9 - Anxiety disorder, unspecified Category: Medical Plan: Continue Escitalopram 10 mg QD (8) Depression: Code(s): F32.A - Depression, unspecified Category: Medical Qualifiers: Active/Remission status: currently active Depression Type: major depressive disorder Major depression episode severity: mild Major depression recurrence: recurrent Qualified Code(s): F33.0 - Major depressive disorder, recurrent, mild Plan: Continue Escitalopram 10 mg QD Follow up with psychiatry as scheduled (9) Obesity (BMI 30-39.9): Code(s): E66.9 - Obesity, unspecified Category: Medical Plan: Reinforced diet/exercise as tolerated/lose weight Plan Follow up with PCP in 4 months Orders: Orders Comprehensive [place]. Panel Fast 09/09/25 E78.00 - Pure hypercholesterolemia, unspecified, Z00.00 - Encounter for general adult medical examination without abnormal findings TSH reflex Free T4 09/09/25 E78.00 - Pure hypercholesterolemia, unspecified, Z00.00 - Encounter for general adult medical examination without abnormal findings UA CC w/rflx Micro + Cult 09/09/25 R30.0 - Dysuria, Z00.00 - Encounter for general adult medical examination without abnormal findings Vitamin D 25-OH Total 09/09/25 E55.9 - Vitamin D deficiency, unspecified, Z00.00 - Encounter for general adult medical examination without abnormal findings Complete Blood Count Auto Diff 09/09/25 D64.9 - Anemia, unspecified, Z00.00 - Encounter for general adult medical examination without abnormal findings Lipid Panel 09/09/25 E78.00 - Pure hypercholesterolemia, unspecified, Z00.00 - Encounter for general adult medical examination without abnormal findings Medications: Refilled calcium carbonate 600 mg PO BID 180 tabs 0RF 90 days M85.80 - Other specified disorders of bone density and structure, unspecified site diltiazem HCl ER 60 mg PO BID 180 caps 0RF 90 days escitalopram oxalate 10 mg PO DAILY 90 tabs 0RF 90 days
[2025-09-09 14:57] VITALS: BP 126/84; PULSE 83; O2SAT 99; BMI 33.8
--- OUTSIDE RECORDS SUMMARY | 2025-09-09 18:18 | XMS_ITS | Data Portability ---
Author Organization [facility] Address [address] [place] [address] Care Team Providers Care Auto Wash Buffer Name Role Phone Unavailable Field Marketing Associate [phone] ORIN MARTINEZ Referring Provider [phone] Assessment Encounter Date Assessment Date Assessment LastModified [...] By Organization Details Last Modified Time 04/30/2019 [id number] Device provided has good fit and function. Patient agrees with my assessment. Patient does understand wear and care of device. Patient does understand how to don and doff the device. Patient received written instructions. Patient was provided with my business card and agrees to call if any problems. dali Not available 04/30/2019 16:31:14 Reason for Referral None Reported. Procedures Surgical History Date Name Laterality Status Provider Name and Address Organization Details Recorded Time 9 BI Procedures completed Joel Real [facility] SORAYA BRAASHELY 04/30/2019 16:32:27 Imaging Results None recorded. Procedure [...] Diagnosis SNOMED-CT Code Diagnosis ICD10 Code Diagnosis IMO Codes Diagnosis Note [id number] MICHELLE Carey, relief cook [place] [address] [address] 04/30/2019 16:01:51 05/01/2019 22:48:53 Sprain of shoulder [id number] S43.429A Health Concerns Section Related Observation LastModified by Organization Detai ls LastModified Time None Recorded Concern Status LastModified by Organization Details LastModified Time None Recorded Advance Directives Directive None Recorded Payers Insurance Date Sequence Insurance Name Policy Number Policy Bautista Covered Member ID Bautista Member ID Guarantor Name 05/02/2019 1 *SELF PAY* Kayley Herrera 05/05/2019 [employer] Gerard Herrera Notes Date Note Type Note Provider Name and Address Organization Details Recorded Time 9 text/html BI HPIReported by PatientEvaluationFor pain?, patient reportslocation (right arm)(post op). For skin problems, patient reportssurgical wound reported(post op).Patient fit with size medium sling and pillow to right arm, post op. Patient fit in [facility] PACU Phase1, post op. Joel Real [facility] [place] [facility] 04/30/2019 16:32:53 OBGyn Episode No OBEpisode recorded.
== END 2025-09-09 15:39 | disposition home or self-care (01) ==
LOC: HO.HMCH 14:37
PROVIDERS: PCP Internal Medicine; Visit Provider Internal Medicine
DX: Z00.00 Encounter for general adult medical examination without abnormal findings (principal); I10 Essential (primary) hypertension; E66.9 Obesity, unspecified; Z68.33 Body mass index [BMI] 33.0-33.9, adult; M85.80 Other specified disorders of bone density and structure, unspecified site; E55.9 Vitamin D deficiency, unspecified; K21.9 Gastro-esophageal reflux disease without esophagitis; M19.211 Secondary osteoarthritis, right shoulder; F41.9 Anxiety disorder, unspecified; F33.0 Major depressive disorder, recurrent, mild

== ENCOUNTER → 2025-09-09 14:36 | Outpatient (BNVA) | payer MEDICARE, MEDICAID, SELFPAY | PROVIDERS: PCP Internal Medicine; Visit Provider Internal Medicine | DX: Z00.00 Encounter for general adult medical examination without abnormal findings (principal); I10 Essential (primary) hypertension; M85.80 Other specified disorders of bone density and structure, unspecified site; E55.9 Vitamin D deficiency, unspecified; K21.9 Gastro-esophageal reflux disease without esophagitis; M19.211 Secondary osteoarthritis, right shoulder; F41.9 Anxiety disorder, unspecified; F33.0 Major depressive disorder, recurrent, mild; E66.9 Obesity, unspecified; Z68.33 Body mass index [BMI] 33.0-33.9, adult | CPT/HCPCS: 99397 ==

== ENCOUNTER 2025-09-10 10:26 | Outpatient (AMB) | payer MEDICARE, SELFPAY ==
--- NOTE | 2025-09-10 10:30 | A.OFFVIS_ITS ---
Vital Signs 09/10/25 10:31 Height 5 ft Weight 173 lb BMI 33.8 BP 148/78 H Blood Pressure Location Lt brachial Position Sitting Pulse 74 Pulse Source Pulse Oximeter Pulse Oximetry (%) 96 Oxygen Delivery Method Room Air Intake Visit Reasons: gerd Intake Note: ESTABLISHED PATIENT for GERD + Constipation mgmt. Chief Complaint; Pt denies any GI changes or new sx/concerns at this time. However, she does report that she has been having some difficulty adjusting to the new insurance plan w/ her medicare + medicaid. Cardiothoracic Icu Rn Required: No Accompanied by: Self / Same As Patient Allergies No Known Allergies Allergy (Verified 09/13/25 02:52) HPI HPI gerd: Details: LAST VISIT: Chronic GERD Tubular adenoma of colon Constipation Postprandial abdominal bloating Plan Continue MiraLax daily. Patient may take 1 Senokot daily to help her move her bowels daily. Continue high-fiber diet and increase fluid intake and activity to promote better bowel motility. Patient will continue taking omeprazole. Avoid dietary triggers and late night snacking. Staying upright for minimum 3 hours after meals discussed with patient. Patient will return in 6 months, sooner on as needed basis. She is agreeable to this plan and verbalizes understanding of instructions. She was given the opportunity to ask questions and all questions answered. ? Thank you for allowing me to participate in her care New polyethylene glycol 3350 (Miralax) 17 grams PO DAILY 510 grams 2RF K59.00 sennosides (Natural Senna Laxative) 8.6 mg PO BEDTIME 90 tabs 3RF constipation K59.00 Refilled omeprazole 40 mg PO DAILY 90 caps 3RF K21.9 TODAY'S VISIT Patient is here today for follow-up. Patient reports that she has been doing quite well. She is taking omeprazole every morning and her symptoms of acid reflux are suppressed. Patient denies dyspepsia, dysphagia or odynophagia. Denies any melena, hematochezia, unintentional weight loss or ribbon like stools. Patient denies any trouble moving her bowels. Patient is taking 1 or 2 senna depending on her bowel pattern. Patient denies any GI concerning symptoms today. [facility] Medical History Obesity (BMI 30-39.9) Tubular adenoma of colon Injury of left rotator cuff Anxiety Depression GERD (gastroesophageal reflux disease) Helicobacter pylori (H. pylori) Osteoarthritis Essential (primary) hypertension BPPV (benign paroxysmal positional vertigo) Surgical History History of ptosis repair H/O unilateral oophorectomy Hx of shoulder surgery Hx of colonoscopy Family History Father Alcoholism Substance use disorder Mother Arthritis Brother Colon cancer, Onset Age: 65 Social History Housing: Apartment Are you a primary neonatal intensive care nurse to a significant other at home: No Do you presently have visiting nurse or other home services: No Alcohol intake: never Patient Tobacco Use Status: Never used Tobacco e-Cigarette/Vaping Use: Never Used Second Hand Smoke Exposure: No service: No Current occupational status: disabled Current occupation: rt hand Sexual orientation: Straight/Heterosexual Gender identity: Female Cognitive needs: No Hearing needs: No Vision needs: Yes (glasses) Review of Systems Const Denies weight gain and Denies weight loss ENT Reports no additional complaints, Denies dysphagia and Denies odynophagia Card Reports no additional complaints Resp Reports no additional complaints GI Denies abdominal pain, Denies belching, Denies melena, Reports bloating, Denies change in bowel habits, Reports constipation (Improved), Denies dysphagia, Denies excessive flatus, Denies dyspepsia, Denies heartburn, Denies diarrhea, Denies loose stools, Denies nausea, Denies odynophagia and Denies vomiting Reports no additional complaints Musc Reports no additional complaints Neuro Reports no additional complaints Psych Reports no additional complaints Endo Reports no additional complaints Physical Exam Vital Signs: Last Vital Signs Pulse 74 09/10/25 10:31 BP 148/78 H 09/10/25 10:31 Pulse Ox 96 09/10/25 10:31 Oxygen Delivery Method Room Air 09/10/25 10:31 BMI result Body Mass Index 33.8 Const General: healthy appearing and no acute distress Nutritional Appearance: obese Orientation/consciousness: patient oriented x3 Resp Effort & Inspection: normal respiratory effort, able to speak in complete sentences, no tracheal deviation and symmetric chest movement Auscultation: clear to auscultation bilaterally Cardio Rate: regular rate GI Inspection: Yes normal to inspection, No distended and Yes obesity Palpation (GI): Soft to palpation, not firm, nontender and No hepatosplenomegaly present Auscultation: normal bowel sounds General: Yes no CVA tenderness Back/Spine/Pelvis Back: no CVA tenderness Skin General skin exam: elasticity normal, turgor normal and dry skin Neuro General: patient oriented x3 Psych Appearance: grossly normal Mental Status: mental status grossly normal Assessment & Plan Assessment & Plan (1) Chronic GERD: Code(s): K21.9 - Gastro-esophageal reflux disease without esophagitis Category: Medical (2) Bloating: Code(s): R14.0 - Abdominal distension (gaseous) Category: Medical (3) Constipation: Code(s): K59.00 - Constipation, unspecified Qualifiers: Constipation type: slow transit constipation Qualified Code(s): K59.01 - Slow transit constipation (4) Abdominal pain: Code(s): R10.9 - Unspecified abdominal pain Qualifiers: Abdominal location: generalized Qualified Code(s): R10.84 - Generalized abdominal pain Plan Continue omeprazole daily. Avoid dietary triggers and late night snacking. Sta mirella upright for minimum 3 hours after meals discussed with patient. Continue senna. Increase fluid intake and activity to promote better bowel motility. Follow-up in 6 months, sooner on as needed basis. She is agreeable to this plan and verbalizes understanding of instructions. She was given the opportunity to ask questions and all questions answered. Thank you for allowing me to participate in her care Medications: Refilled omeprazole 40 mg PO DAILY 90 caps 3RF K21.9 - Gastro-esophageal reflux disease without esophagitis sennosides (Natural Senna Laxative) 8.6 mg PO BEDTIME 90 tabs 3RF constipation K59.00 - Constipation, unspecified Coding Level of Care Code Est Pt Level 3 (43585) Diagnoses Chronic GERD K21.9 Bloating R14.0 Slow transit constipation K59.01 Constipation type: slow transit constipation Generalized abdominal pain R10.84 Abdominal location: generalized Time Spent (min) 25 Comment 15 minutes spent with patient and additional 10 minutes spent reviewing her records
[2025-09-10 10:31] VITALS: BP 148/78; PULSE 74; O2SAT 96; BMI 33.8
--- OUTSIDE RECORDS SUMMARY | 2025-09-10 12:56 | XMS_ITS | Encounter Summary ---
Author Organization [facility] Address [address] [place] [address] Care Team Providers Care Plaster Helper Name Role Phone Unavailable Primary Care Provider [...]
--- OUTSIDE RECORDS SUMMARY | 2025-09-10 12:56 | XMS_ITS | Encounter Summary ---
Author Organization [facility] Address [address] [place] [address] Care Team Providers Care Print Line Operator Name Role Phone Unavailable Primary Care [...]
--- OUTSIDE RECORDS SUMMARY | 2025-09-10 12:56 | XMS_ITS | Clinical Summary ---
Author Organization [employer] [facility] [employer] Address [address] [place] [address] Care Team Providers Care Ice Cream Machine Operator Name Role Phone Unavailable Primary Care Provider Unavailabl e Allergies No known active allergies Medications diclofenac (Voltaren) 75 MG EC tablet Take 75 mg by mouth 2 times daily. 3 Active ergocalciferol (Vitamin D2) 1.25 MG (11219 UT) capsule Take 1 capsule by mouth [...] FIT DNA/Cologuard 1960 FIT 1960 FOBT 1960 Lipid Panel 1960 SDOH Screening 1960 [...] exists Tobacco Screening 06/06/2024 06/06/2023 COVID-19 Vaccine ( season) 2025 03/26/2021, 03/05/2021 Influenza Vaccine (#1) 2025 Dental X-Ray: Full Mouth 04/25/2026 023, 01/18/2018, [...] patient's age to complete this topic Meningococcal B Vaccine Aged Out No l onger eligible based on patient's age to complete [...] Most Recently Relevant to Health Maintenance Insurance [facility] MEDICAID STAND ADULT
--- OUTSIDE RECORDS SUMMARY | 2025-09-10 12:56 | XMS_ITS | Encounter Summary ---
Author Organization [facility] Address [address] [place] [address] Care Team Providers Care Bad Cloth Checker Name Role Phone Unavailable Primary Care Provider [...]
== END 2025-09-10 11:14 | disposition home or self-care (01) ==
LOC: HO.HGI 10:27
PROVIDERS: PCP Internal Medicine; Visit Provider Nurse Practitioner Family
DX: K21.9 Gastro-esophageal reflux disease without esophagitis (principal); R14.0 Abdominal distension (gaseous); K59.01 Slow transit constipation; R10.84 Generalized abdominal pain
CPT/HCPCS: 99213

== ENCOUNTER → 2025-09-10 10:26 | Outpatient (BNVA) | payer MEDICARE, SELFPAY | PROVIDERS: PCP Internal Medicine; Visit Provider Nurse Practitioner Family | DX: K21.9 Gastro-esophageal reflux disease without esophagitis (principal); R14.0 Abdominal distension (gaseous); K59.01 Slow transit constipation; R10.84 Generalized abdominal pain | CPT/HCPCS: 99212 ==

== ENCOUNTER 2025-11-03 10:12 | Outpatient (AMB) | payer OTHER, SELFPAY ==
--- NOTE | 2025-11-03 10:17 | A.OFFVIS_ITS ---
Vital Signs 11/03/25 10:18 Height 5 ft Weight 169 lb 2 oz BMI 33.0 BP 138/76 Blood Pressure Location Rt brachial Position Sitting Intake Visit Reasons: [employer] annual exam Allergies No Known Allergies Allergy (Verified 11/03/25 10:19) HPI Comments Details: Patient is a postmenopausal woman presenting for her annual agency legal counsel examination. [employer] concerns: none. Currently not sexually active. Denies any vaginal dryness or irritation. STI te sting offered; she declined. Attempting to eat a healthy diet with calcium and vitamin D and stays active with exercise. Last pap smear; 2023,negative. Last Dexa, mammogram; 2024. Colonoscopy is UTD. [facility] Medical History Obesity (BMI 30-39.9) Tubular adenoma of colon Injury of left rotator cuff Anxiety Depression GERD (gastroesophageal reflux disease) Helicobacter pylori (H. pylori) Osteoarthritis Essential (primary) hypertension BPPV (benign paroxysmal positional vertigo) Surgical History History of ptosis repair H/O unilateral oophorectomy Hx of shoulder surgery Hx of colonoscopy Family History Father Alcoholism Substance use disorder Mother Arthritis Brother Colon cancer, Onset Age: 65 Social History Housing: Apartment Are you a primary memory care program resident to a significant other at home: No Do you presently have visiting nurse or other home services: No Alcohol intake: never Patient Tobacco Use Status: Never used Tobacco e-Cigarette/Vaping Use: Never Used Second Hand Smoke Exposure: No service: No Current occupational status: disabled Current occupation: rt hand Sexual orientation: Straight/Heterosexual Gender identity: Female Cognitive needs: No Hearing needs: No Vision needs: Yes (glasses) Female Reproductive History Menstrual Date of Mammogram: 02/12/25 History of abnormal mammogram: No Date of last Bone Density Screenin09/02/25 Review of Systems Const All systems reviewed & are unremarkable except as noted in HPI and below Reports as per HPI Eyes Reports no additional complaints ENT Reports no additional complaints Card Reports no additional complaints Resp Reports no additional complaints GI Reports as per HPI and Reports no additional complaints Reports as per HPI Musc Reports no additional complaints Skin/Breast Reports as per HPI Neuro Reports no additional complaints Psych Reports no additional complaints Endo Reports no additional complaints Marco/Lymph Reports no additional complaints Aller/Immun Reports no additional complaints Physical Exam Vital Signs: Last Vital Signs BP 138/76 11/03/25 10:18 BMI result Body Mass Index 33.0 Const General: cooperative, healthy appearing, no acute distress, well developed and alert Orientation/consciousness: patient oriented x3 HEENT Head: Yes normal to inspection Eyes General: appearance normal, both eyes and all related structures Neck Neck: Yes normal visual inspection Thyroid: Thyroid normal Chest Chest palpation & inspection: normal inspection of the chest and other (no puck ering, dimpling, peau de orange, retraction, discharge, masses) Breast/axilla inspection: normal inspection of the breasts Breast/axilla palpation: normal palpation of the breasts Resp Effort & Inspection: normal respiratory effort GI Inspection: Yes normal to inspection Palpation (GI): Soft to palpation Rectal Exam - Female: deferred General: Yes bladder normal to palpation External Female Exam: normal external appearance and normal appearance of the urethra Speculum Exam - Vagina: normal appearance of the vagina, normal palpation, normal vaginal discharge and vagina atrophic Speculum Exam - Cervix: normal appearance of the cervix and normal palpation Bimanual exam- vagina & uterus: normal bimanual exam, normal palpation, uterine size normal, bladder normal to palpation, normal palpation and non-tender Bimanual Exam- Adnexa, other: no masses Skin General skin exam: no rashes or lesions noted Rashes: no rashes Neuro General: patient oriented x3 Cognition (Neuro): normal cognition Extrem General: Yes normal to inspection Psych Attitude: cooperative Thought process: Normal thought process present Assessment & Plan Assessment & Plan (1) Encounter for well woman exam with routine gynecological exam: Code(s): Z01.419 - Encounter for gynecological examination (general) (routine) without abnormal findings Category: Medical Plan Discussed: Current recommendations for pap smears per ASCCP guidelines. Breast awareness, periodic self breast exams and yearly mammogram. Maintain a healthy lifestyle, well balanced diet including Calcium 1,200 mg and Vitamin D 600 IU daily, and routine exercise. Contact the office with any postmenopausal bleeding. Patient verbalizes understanding and agrees to the plan of care. She was given opportunity to ask questions and all questions were answered to the best of my ability. RTO in 1 year for annual agency legal counsel exam. This note is constructed using voice recognition software. While every effort has been made to ensure accuracy, memory care program resident errors may have been included. Coding Level of Care Code Est Pt Prev Care >65y(71229) Diagnoses Encounter for well woman exam with routine gynecological exam Z01.419
[2025-11-03 10:18] VITALS: BP 138/76; BMI 33.0
== END 2025-11-03 11:17 | disposition home or self-care (01) ==
LOC: HO.HWS 10:13
PROVIDERS: PCP Internal Medicine; Visit Provider Advanced Practice Midwife
DX: Z01.419 Encounter for gynecological examination (general) (routine) without abnormal findings (principal)
CPT/HCPCS: 99397; 99459

== ENCOUNTER → 2025-11-03 10:12 | Outpatient (BNVA) | payer OTHER, SELFPAY | PROVIDERS: PCP Internal Medicine; Visit Provider Advanced Practice Midwife | DX: Z01.419 Encounter for gynecological examination (general) (routine) without abnormal findings (principal) | CPT/HCPCS: 99397 ==